=== PATIENT | female | born 1970 | race Caucasian/White ===

== ENCOUNTER 2018-01-01 18:31 | Inpatient (IN) | payer OTHER, MEDICAID, SELFPAY ==
[2018-01-01 18:52] VITALS: BP 110/80; PULSE 80; RESP 16; TEMP 36.8; O2SAT 100; BMI 26.1
--- NOTE | 2018-01-01 20:00 | ED.ABDPAIN ---
HPI - Abdominal Pain <YADY Schuler - Last Filed: 01/01/18 22:16> General Chief Complaint: Abdominal Pain Stated Complaint: states diverticulitis is getting worse Time Seen by Provider: 01/01/18 20:00 Source: patient Mode of arrival: ambulatory Limitations: no limitations History of Present Illness HPI narrative: 47-year-old female that has a history of hypothyroidism and is an everyday smoker here for complaint of abdominal pain over the past week. She was seen in the [facility] and [facility] where she was diagnosed with diverticulitis. She reports she has had constant pain for the past 5- 6 days she states she has 1 day left of antibiotics she actually reports today she had increased nausea and discomfort. She denies any fevers or chills. Last bowel movement was earlier today and was diarrhea. She denies any urinary symptoms. No trauma to the abdomen. Pain is to the left side of the abdomen. She denies any stressors or relievers of her pain. She denies any other concerns or complaints. She does state that she has been taking her antibiotics as prescribed. She was prescribed ciprofloxacin and Flagyl complaint: abdominal pain Related Data Home Medications Medication Instructions Recorded Confirmed buspirone 2 tab PO BID 01/01/18 01/01/18 cariprazine [Vraylar] 1 tab PO QPM 01/01/18 01/01/18 ciprofloxacin HCl 1 tab PO BID 01/01/18 01/01/18 levothyroxine 1 tab PO DAILY 01/01/18 01/01/18 lorazepam 1 tab PO BID PRN 01/01/18 01/01/18 metronidazole 1 tab PO TID 01/01/18 01/01/18 Allergies Allergy/AdvReac Type Severity Reaction Status Date / Time lamotrigine [From LAMICTAL] Allergy Unknown Verified 01/01/18 20:28 Review of Systems <YADY Schuler - Last Filed: 01/01/18 22:16> Constitutional Denies chills, Denies fever(s), Denies lethargy and Denies weakness Eyes Denies change in vision, Denies eye discharge, Denies irritation and Denies loss of vision ENT Ears, Nose, Mouth, and Throat: Denies change in voice, Denies neck pain and Denies sore throat Cardiovascular Denies chest pain, Denies irregular heart rhythm, Denies lightheadedness, Denies palpitations, Denies dyspnea, Denies dyspnea on exertion and Denies orthopnea Respiratory Denies cough, Denies dyspnea, Denies dyspnea on exertion and Denies wheezing Gastrointestinal Comments: abdominal pain Genitourinary Denies hematuria, Denies flank pain, Denies urinary incontinence and Denies urinary urgency Musculoskeletal Denies neck pain Integumentary/Breasts Denies pruritus, Denies erythema, Denies rash and Denies wounds Neurologic Denies confusion, Denies loss of vision and Denies weakness Psychiatric Denies anxiety, Denies confusion, Denies depression, Denies homicidal ideation and Denies suicidal ideation Endocrine Denies palpitations Hematologic/Lymphatic Denies easy bruising Allergic/Immunologic Denies wheezing Exam <YADY Schuler - Last Filed: 01/01/18 22:16> Initial Vital Signs Initial Vital Signs: Vital Signs Temperature 98.3 F 01/01/18 18:52 Pulse Rate 80 01/01/18 18:52 Respiratory Rate 16 01/01/18 18:52 Blood Pressure 110/80 01/01/18 18:52 Pulse Oximetry 100 01/01/18 18:52 Const General: cooperative and well developed Nutritional Appearance: well nourished Orientation: alert, awake, oriented x3 and not confused HENIA Mouth: oral mucosae normal and moist mucous membranes Eyes Conjunctivae: conjunctivae normal Sclera: sclerae normal Pupils: PERRL EOM: EOM intact bilaterally Resp Effort & Inspection: normal respiratory effort, able to speak in complete sentences, no respiratory distress and no use of accessory muscles Auscultation: clear to auscultation bilaterally, no rales, no rhonchi and no wheezes Cardio Rate: regular rate Rhythm: regular rhythm Heart Sounds: no click, no gallops, no murmurs and no rubs Pulses: normal peripheral pulses GI Inspection: non-distended Palpation: soft, no hepatosplenomegaly, No guarding, No pulsatile mass and tender Auscultation: normal bowel sounds Other: left-sided upper abdominal pain General: No CVA tenderness Neuro General: alert, oriented x3, gait normal and no focal motor deficits Speech: speech normal <James Gutierrez DO - Last Filed: 01/01/18 23:26> Initial Vital Signs Initial Vital Signs: Vital Signs Temperature 98.3 F 01/01/18 18:52 Pulse Rate 80 01/01/18 18:52 Respiratory Rate 16 01/01/18 18:52 Blood Pressure 110/80 01/01/18 18:52 Pulse Oximetry 100 01/01/18 18:52 Course <YADY Schuler - Last Filed: 01/01/18 22:16> Orders Ordered: ED Orders 01/01/18 20:10 Complete Blood Count AUTO DIFF Stat Comprehensive Metabolic Panel Stat Lipase Stat 01/01/18 20:22 CT abdomen pelvis w con Stat 01/01/18 20:30 Urine Culture Stat Urine Microscopic Stat 01/01/18 22:02 Consult to General Surgery Routine Buspirone HCl (Buspar) 15 mg PO BID PRAMOD Hydromorphone HCl (Dilaudid) 2 mg IV Q4HR PRN PRN Reason: Pain, Moderate (4-6) Sodium Chloride (Normal Saline 0.9%) 1,000 mls @ 125 mls/hr IV CONT PRAMOD Piperacillin/Tazobactam/Dextrose (Zosyn) 3.375 gm in 50 mls @ 100 mls/hr IV Q6H PRAMOD Levothyroxine Sodium (Synthroid) 75 mcg PO 0600 PRAMOD Ondansetron HCl (Zofran) 4 mg IV Q4HR PRN PRN Reason: Nausea And Vomiting Discontinued Medications Hydromorphone HCl (Dilaudid) 1 mg IV NOW ONE Stop: 01/01/18 20:21 Last Admin: 01/01/18 20:29 Dose: 1 mg Sodium Chloride (Normal Saline 0.9%) 1,000 mls @ 1,000 mls/hr IV BOLUS ONE Stop: 01/01/18 21:19 Last Infusion: 01/01/18 21:36 Dose: 0 mls/hr Admin: 01/01/18 20:29 Dose: 1,000 mls/hr Piperacillin/Tazobactam/Dextrose (Zosyn) 3.375 gm in 50 mls @ 100 mls/hr IV Q6H PRAMOD Ondansetron HCl (Zofran) 4 mg IV NOW ONE Stop: 01/01/18 20:21 Last Admin: 01/01/18 20:29 Dose: 4 mg Vital Signs - 8 hr 01/01/18 18:52 01/01/18 20:38 01/01/18 22:08 Temperature 98.3 F Pulse Rate 80 77 80 Respiratory Rate 16 14 13 Blood Pressure 110/80 Blood Pressure [Right Arm] 136/79 124/79 Pulse Oximetry 100 98 98 01/01/18 22:48 Temperature 98.1 F Pulse Rate 85 Respiratory Rate 16 Blood Pressure 133/71 Blood Pressure [Right Arm] Pulse Oximetry 98 <James Gutierrez, DO - Last Filed: 01/01/18 23:26> Orders Ordered: ED Orders 01/01/18 20:10 Complete Blood Count AUTO DIFF Stat Comprehensive Metabolic Panel Stat Lipase Stat 01/01/18 20:22 CT abdomen pelvis w con Stat 01/01/18 20:30 Urine Culture Stat Urine Microscopic Stat 01/01/18 22:02 Consult to General Surgery Routine Buspirone HCl (Buspar) 15 mg PO BID PRAMOD Hydromorphone HCl (Dilaudid) 2 mg IV Q4HR PRN PRN Reason: Pain, Moderate (4-6) Sodium Chloride (Normal Saline 0.9%) 1,000 mls @ 125 mls/hr IV CONT PRAMOD Piperacillin/Tazobactam/Dextrose (Zosyn) 3.375 gm in 50 mls @ 100 mls/hr IV Q6H PRAMOD Levothyroxine Sodium (Synthroid) 75 mcg PO 0600 PRAMOD Ondansetron HCl (Zofran) 4 mg IV Q4HR PRN PRN Reason: Nausea And Vomiting Discontinued Medications Hydromorphone HCl (Dilaudid) 1 mg IV NOW ONE Stop: 01/01/18 20:21 Last Admin: 01/01/18 20:29 Dose: 1 mg Sodium Chloride (Normal Saline 0.9%) 1,000 mls @ 1,000 mls/hr IV BOLUS ONE Stop: 01/01/18 21:19 Last Infusion: 01/01/18 21:36 Dose: 0 mls/hr Admin: 01/01/18 20:29 Dose: 1,000 mls/hr Piperacillin/Tazobactam/Dextrose (Zosyn) 3.375 gm in 50 mls @ 100 mls/hr IV Q6H PRAMOD Ondansetron HCl (Zofran) 4 mg IV NOW ONE Stop: 01/01/18 20:21 Last Admin: 01/01/18 20:29 Dose: 4 mg Vital Signs - 8 hr 01/01/18 18:52 01/01/18 20:38 01/01/18 22:08 Temperature 98.3 F Pulse Rate 80 77 80 Respiratory Rate 16 14 13 Blood Pressure 110/80 Blood Pressure [Right Arm] 136/79 124/79 Pulse Oximetry 100 98 98 01/01/18 22:48 Temperature 98.1 F Pulse Rate 85 Respiratory Rate 16 Blood Pressure 133/71 Blood Pressure [Right Arm] Pulse Oximetry 98 MDM - Abdominal Pain <YADY Schuler - Last Filed: 01/01/18 22:16> Lab Data Result diagrams: 01/01/18 20:10 01/01/18 20:10 Lab Results 01/01/18 01/01/18 01/01/18 Range/Units 20:10 20:10 20:30 WBC 8.7 (4.5-11.0) X10^3/uL RBC 4.85 (4.0-5.2) X10^6/uL Hgb 15.6 (12.0-16.0) g/dL Hct 46.0 (36-46) % MCV 94.8 (80-100) fL MCH 32.2 (26-34) PG MCHC 34.0 (30-36) % RDW 13.9 (11.6-14.8) % Plt Count 211 (150-400) X10^3/uL Neut % (Auto) 60.4 (50-75) % Lymph % (Auto) 30.9 (25-40) % [place] % (Auto) 6.4 (3-14) % Eos % (Auto) 1.5 L (2-4) % Baso % (Auto) 0.8 (0-2) % Neut # (Auto) 5200 (8755-7021) /uL Sodium 143 (137-145) mmol/L Potassium 4.4 (3.4-5.1) mmol/L Chloride 105 (98-107) mmol/L Carbon Dioxide 26 (22-32) mmol/L BUN 8 (7-17) mg/dL Creatinine 0.70 (0.52-1.04) mg/dL Estimated GFR > 60.0 (>60) mL/min BUN/Creatinine Ratio 11.4 (6-22) Glucose 93 (70-100) mg/dL Calcium 9.3 (8.4-10.2) mg/dL Total Bilirubin 0.4 (0.2-1.3) mg/dL AST 29 (14-36) IU/L ALT 29 (9-52) IU/L Alkaline Phosphatase 69 (38-126) U/L Total Protein 7.5 (6.3-8.2) g/dL Albumin 4.6 (3.5-5.0) g/dL Globulin 2.9 (1.7-4.1) g/dL Albumin/Globulin Ratio 1.6 (1.0-2.8) Lipase 117 (23-300) U/L Urine RBC 1-5/hpf (0-5/HPF) Urine WBC 0-1/hpf (0-5/HPF) Ur Squamous Epith Cells 1-5 /hpf Calcium Oxalate Crystal Moderate H (None) Urine Bacteria Few (2-10) H (None) Ur Culture Indicated? Specimen cultured Micro UA Comment Not Reportable Point of care testing: Urine Dip Bedside Urine Glucose Negative Bedside Urine Bilirubin - Negative Bedside Urine Ketone - Negative Urine Specific [place] 1.030 Bedside Urine Occult Blood - Negative Bedside Urine pH 6.0 Bedside Urine Protein - Negative Bedside Urine Urobilinogen - Negative Bedside Urine Nitrite - Negative Bedside Urine Leukocytes + [address] scan - abdomen: Radiologist's impression: [place] [address] CT Scan Report Signed Patient: Jocelyn Riggins [facility]#: [id number] : 1970Acct:[id number] Age/Sex: 47 / FDate of Service: 01/01/18 Loc: ED Accession Number: [id number] Procedure: CT abdomen pelvis w con Ordering Provider: Alexis Ríos PROCEDURE: CT ABDOMEN PELVIS W CON INDICATIONS: pain into left abdominal area TECHNIQUE: After the administration of intravenous contrast, 5 mm thick sections acquired from the diaphragm to the symphysis. 5 mm coronal and sagittal reformats were acquired. For radiation dose reduction, the following was used: automated exposure control, adjustment of mA and/or kV according to patient size. COMPARISON: None. FINDINGS: Image quality: Excellent. ABDOMEN: Lung bases: Lung bases are clear. Heart size is normal. Solid organs: Liver is normal in size and enhancement. Gallbladder appears normal. Biliary system is non dilated. Pancreas enhances normally. Spleen is normal in size and enhancement. No adrenal nodules. Kidneys demonstrate normal size and enhancement, without hydronephrosis. Peritoneum and bowel: Bowel loops demonstrate normal wall thickness and caliber. No free fluid or air. Nodes and vessels: No retroperitoneal or mesenteric adenopathy by size criteria. Aorta and inferior vena cava are normal in size. Miscellaneous: No ventral hernias. PELVIS: Genitourinary: Bladder wall thickness is normal. Miscellaneous: No inguinal hernias or adenopathy. Extensive diverticulosis at the sigmoid colon, mild focal acute diverticulitis at the inferior aspect of the descending colon (without peridiverticular abscess). Bones: No suspicious bony lesions. No vertebral body compression fractures. IMPRESSION: Diverticulosis of the sigmoid colon with acute diverticulitis at the inferior margin of the descending colon. No peridiverticular abscess. Dictated by: Manuel Chavira M.D. on 01/01/2018 at 21:33 Approved by: Manuel Chavira M.D. on 01/01/2018 at 21:34 [facility] Narrative Medical decision making narrative: CBC and Chem panel were obtained were unremarkable. lipase was negative. Repeat CT was obtained and shows mild sigmoid diverticulitis. Due to feeling outpatient treatment patient is admitted for IV antibiotics And pain control, discussed case with Dr. Sneed surgery who accepted patient. Patient is admitted to inpatient [facility]. <James Gutierrez, DO - Last Filed: 01/01/18 23:26> Lab Data Lab Results 01/01/18 01/01/18 01/01/18 Range/Units 20:10 20:10 20:30 WBC 8.7 (4.5-11.0) X10^3/uL RBC 4.85 (4.0-5.2) X10^6/uL Hgb 15.6 (12.0-16.0) g/dL Hct 46.0 (36-46) % MCV 94.8 (80-100) fL MCH 32.2 (26-34) PG MCHC 34.0 (30-36) % RDW 13.9 (11.6-14.8) % Plt Count 211 (150-400) X10^3/uL Neut % (Auto) 60.4 (50-75) % Lymph % (Auto) 30.9 (25-40) % [place] % (Auto) 6.4 (3-14) % Eos % (Auto) 1.5 L (2-4) % Baso % (Auto) 0.8 (0-2) % Neut # (Auto) 5200 (5264-8502) /uL Sodium 143 (137-145) mmol/L Potassium 4.4 (3.4-5.1) mmol/L Chloride 105 (98-107) mmol/L Carbon Dioxide 26 (22-32) mmol/L BUN 8 (7-17) mg/dL Creatinine 0.70 (0.52-1.04) mg/dL Estimated GFR > 60.0 (>60) mL/min BUN/Creatinine Ratio 11.4 (6-22) Glucose 93 (70-100) mg/dL Calcium 9.3 (8.4-10.2) mg/dL Total Bilirubin 0.4 (0.2-1.3) mg/dL AST 29 (14-36) IU/L ALT 29 (9-52) IU/L Alkaline Phosphatase 69 (38-126) U/L Total Protein 7.5 (6.3-8.2) g/dL Albumin 4.6 (3.5-5.0) g/dL Globulin 2.9 (1.7-4.1) g/dL Albumin/Globulin Ratio 1.6 (1.0-2.8) Lipase 117 (23-300) U/L Urine RBC 1-5/hpf (0-5/HPF) Urine WBC 0-1/hpf (0-5/HPF) Ur Squamous Epith Cells 1-5 /hpf Calcium Oxalate Crystal Moderate H (None) Urine Bacteria Few (2-10) H (None) Ur Culture Indicated? Specimen cultured Micro UA Comment Not Reportable Point of care testing: Urine Dip Bedside Urine Glucose Negative Bedside Urine Bilirubin - Negative Bedside Urine Ketone - Negative Urine Specific [place] 1.030 Bedside Urine Occult Blood - Negative Bedside Urine pH 6.0 Bedside Urine Protein - Negative Bedside Urine Urobilinogen - Negative Bedside Urine Nitrite - Negative Bedside Urine Leukocytes + 70 Esterase Discharge Plan Departure Patient Disposition: Admitted As Inpatient Clinical Impression: Diverticulitis Discharge Date/Time: 01/01/18 22:36 Interventions: ED Discharge Assessment Last Done: 01/01/18 22:38 Admit Date/Time: 01/01/18 22:15 Admit Provider: Gama Sneed <James Gutierrez DO - Last Filed: 01/01/18 23:26> Cosign ED Attending Cosignature Attestation: I was immediately available in the department for consultation. Documentation has been reviewed. I agree with assessment and plan.
--- NOTE | 2018-01-01 20:22 | DI.CT.S_ITS ---
PROCEDURE: CT ABDOMEN PELVIS W CON INDICATIONS: pain into left abdominal area TECHNIQUE: After the administration of intravenous contrast, 5 mm thick sections acquired from the diaphragm to the symphysis. 5 mm coronal and sagittal reformats were acquired. For radiation dose reduction, the following was used: automated exposure control, adjustment of mA and/or kV according to patient size. COMPARISON: None. FINDINGS: Image quality: Excellent. ABDOMEN: Lung bases: Lung bases are clear. Heart size is normal. Solid organs: Liver is normal in size and enhancement. Gallbladder appears normal. Biliary system is non dilated. Pancreas enhances normally. Spleen is normal in size and enhancement. No adrenal nodules. Kidneys demonstrate normal size and enhancement, without hydronephrosis. Peritoneum and bowel: Bowel loops demonstrate normal wall thickness and caliber. No free fluid or air. Nodes and vessels: No retroperitoneal or mesenteric adenopathy by size criteria. Aorta and inferior vena cava are normal in size. Miscellaneous: No ventral hernias. PELVIS: Genitourinary: Bladder wall thickness is normal. Miscellaneous: No inguinal hernias or adenopathy. Extensive diverticulosis at the sigmoid colon, mild focal acute diverticulitis at the inferior aspect of the descending colon (without peridiverticular abscess). Bones: No suspicious bony lesions. No vertebral body compression fractures. IMPRESSION: Diverticulosis of the sigmoid colon with acute diverticulitis at the inferior margin of the descending colon. No peridiverticular abscess. Dictated by: Manuel Chavira M.D. on 01/01/2018 at 21:33 Approved by: Manuel Chavira M.D. on 01/01/2018 at 21:34
[2018-01-01] MEDS: SODIUM CHLORIDE 0.9% 1,000 ML 1000 ML IV (20:29)
[2018-01-01] MEDS: ONDANSETRON 4 MG/2 ML INJ IV (20:29)
[2018-01-01] MEDS: HYDROMORPHONE 1 MG INJ IV (20:29)
[2018-01-01 20:32] LABS: Add Manual Diff / Slide Review NO; Basophils Percent Auto 0.8 % (0-2); Eosinophils Percent Auto 1.5 % (2-4); Hemoglobin 15.6 g/dL (12.0-16.0); Lymphocytes Percent Auto 30.9 % (25-40); Mean Corpuscular Hemoglobin 32.2 PG (26-34); Mean Corpuscular Volume 94.8 fL (80-100); Monocytes Percent Auto 6.4 % (3-14); Neutrophils Absolute Auto 5200 /uL (3000-5900); Neutrophils Percent Auto 60.4 % (50-75); Platelet Count 211 X10^3/uL (150-400); Red Blood Cell Count 4.85 X10^6/uL (4.0-5.2); Red Cell Distribution Width 13.9 % (11.6-14.8); White Blood Cell Count 8.7 X10^3/uL (4.5-11.0)
[2018-01-01 20:38] VITALS: BP 136/79; PULSE 77; RESP 14; O2SAT 98
[2018-01-01 20:53] LABS: Alanine Aminotransferase 29 IU/L (9-52); Albumin 4.6 g/dL (3.5-5.0); Albumin Globulin Ratio 1.6 (1.0-2.8); Alkaline Phosphatase 69 U/L (38-126); Aspartate Aminotransferase 29 IU/L (14-36); BUN Creatinine Ratio 11.4 (6-22); Bilirubin Total 0.4 mg/dL (0.2-1.3); Blood Urea Nitrogen 8 mg/dL (7-17); Calcium 9.3 mg/dL (8.4-10.2); Carbon Dioxide 26 mmol/L (22-32); Chloride 105 mmol/L (98-107); Estimated Glomerular Filt Rate > 60.0 mL/min (>60); Globulin 2.9 g/dL (1.7-4.1); Glucose 93 mg/dL (70-100); HEMOLYSIS 31 (0-50); Lipase 117 U/L (23-300); Potassium 4.4 mmol/L (3.4-5.1); Sodium 143 mmol/L (137-145); Total Protein 7.5 g/dL (6.3-8.2)
[2018-01-01 21:20] LABS: Bacteria Urine Few (2-10); Calcium Oxalate Crystals Urine Moderate; RBC Urine 1-5/HPF (0-5/HPF); Squamous Epithelial Cell Urine 1-5 /HPF; WBC Urine 0-1/HPF (0-5/HPF)
[2018-01-01 21:21] LABS: Culture Indicated Urine Specimen Cultured
[2018-01-01 22:08] VITALS: BP 124/79; PULSE 80; RESP 13; O2SAT 98
[2018-01-01 22:23] VITALS: BMI 26.1
[2018-01-01 22:48] VITALS: BP 133/71; PULSE 85; RESP 16; TEMP 36.7; O2SAT 98
[2018-01-01] MEDS: SODIUM CHLORIDE 0.9% 1,000 ML 125 ML IV (23:13)
[2018-01-01] MEDS: PIPERACILLIN-TAZO 3.375 GM/50 ML FROZ.PIGGY IV (23:13)
--- NOTE | 2018-01-01 23:35 | PC.NURSE ---
admit pt admitted to from ER around 2300. VSS. states abdominal pain since mid december with recent hospitalization being DCd on the . currently rating abdominal discomfort 7/10 to central and left abdomen. states had Ivania repair in 04/25 so shouldn't be vomiting or burping but has been doing both today. diarrhea x3 day. denies blood in emesis or stool. water provided. NS infusing per order with zosyn piggyback started. pt encouraged to use call light for needs and prior to activity for assist with equipment. spouse Jez in room for the night. pt oriented to room and plan of care. denies any questions.
[2018-01-01 23:45] VITALS: O2SAT 98
[2018-01-02] VITALS (7 sets, daily range): BP systolic 100–119; BP diastolic 59–81; PULSE 53–96; RESP 16–20; TEMP 36.3–37.1; O2SAT 96–99
[2018-01-02] MEDS: HYDROMORPHONE 2 MG INJ IV ×4 (00:04→17:35)
[2018-01-02] MEDS: ONDANSETRON 4 MG/2 ML INJ IV ×4 (00:06→16:34)
[2018-01-02] MEDS: NICOTINE 21 MG PATCH TOP (00:20)
[2018-01-02] MEDS: PIPERACILLIN-TAZO 3.375 GM/50 ML FROZ.PIGGY IV ×4 (04:15→20:48)
--- NOTE | 2018-01-02 06:47 | PC.NURSE ---
NOC Shift: Pt admitted tonight for lower ABD pain re: diverticulitis. Rates pain 7/10, BT's audible, abd. soft, tender. Controlled with Dilaudid 2mg Q4H, given w/Zofran for nausea control. IVF's 125mls/hr. Ambulates w/standby assist w/o difficulty. VSS, on tele NSR. sleeping overnight, will have surgical consult this AM. IV ABX started.
[2018-01-02] MEDS: SODIUM CHLORIDE 0.9% 1,000 ML 125 ML IV (07:59)
--- NOTE | 2018-01-02 09:01 | CM.DANOTE ---
DCP: Case received, EMR reviewed and met with patient. Introduced self and role. DCP template completed with information currently available. Patient is a 47 year old female who admitted yesterday evening to the care of the hospitalist team. PCP: Dr. Atkins. Payer: confirmed: [employer]. Patient came into hospital with symptoms of abdominal pain. Patient carries a diagnosis of Diverticulitis. Patient stated that her condition has gotten worse. Patient is alert and oriented, pleasant, at bedside. Resides with in [facility]. P: DCP to continue to follow. Plan is to return home when she is stable. Laury Forbes RN/Hard Hat [employer]
[2018-01-02] MEDS: BUSPIRONE 15 MG TABLET PO ×2 (09:05→20:47)
[2018-01-02] MEDS: LEVOTHYROXINE 75 MCG TABLET PO (09:05)
--- NOTE | 2018-01-02 14:31 | HP_ITS ---
DATE OF SERVICE: 01/01/2018 HISTORY OF PRESENT ILLNESS: A 47-year-old white female patient who was recently hospitalized somewhere in [facility]; she was in the hospital 3 days with acute diverticulitis, treated with Cipro and Flagyl and discharged on oral Cipro and Flagyl. She came into the emergency room because her abdominal pain was increasing and she has more discomfort. No nausea, vomiting. Denies fevers or chills. She had a bowel movement and it was loose on 01/01/2018. Comes to the emergency room with a normal white count, has a CT scan of the abdomen and pelvis revealing acute sigmoid diverticulitis. No free air. No perforation. No abscesses. She is admitted for ongoing intravenous antibiotic therapy and a change in antibiotic therapy. PAST MEDICAL HISTORY: She does have a history of having a Ivania fundoplication last spring, and also has a history of diverticulitis, she says, on the right side of her colon, and a duodenal diverticulum is known as well. She has had a history of C. diff enterocolitis. ALLERGIES: LAMOTRIGENE. MEDICATIONS: She currently uses buspirone. She is on Cipro and Flagyl and she is on thyroid replacement therapy. She also takes lorazepam b.i.d. p.r.n. REVIEW OF SYSTEMS: Denies exertional chest pain or unusual shortness of breath. GI is as mentioned in the HPI. She also history of gastroesophageal reflux. She states that she has improvement in her reflux after having a Ivania fundoplication. She is still able to burp and vomit, however. The negative for incontinence, history of infections. NEUROLOGIC: denies stroke, seizures, or TIAs. ENDOCRINE: She does have hypothyroidism. PHYSICAL EXAMINATION VITAL SIGNS: She's afebrile, 98; blood pressure 110/80; heart rate in the 80s, HEENT: Ears, nose, throat are normal. NECK: No adenopathy. CHEST: Lungs are clear with no rales or wheezes. HEART: Regular rhythm. No murmur. ABDOMEN: Soft, nondistended. Actually she only has, this morning, minimal left lower quadrant tenderness. No masses are palpated. IMPRESSION: Acute diverticulitis, unresolved on oral antibiotic therapy. She will continue IV antibiotic therapy using a different drug, Zosyn, on this occasion and with her history of C. diff and having a loose stool yesterday, I will order a stool for C. diff to check her baseline. Jocelyn Riggins - Lg/ doc#: [id number]/job#: [id number] dd: 01/02/2018 08:50:00 dt: 01/02/2018 14:10:00 DICTATING /COPIES TO: Gama Sneed MD COPIES MNE: MOUNIKA
[2018-01-02] MEDS: CARIPRAZINE 3 MG 3 EACH PO (20:47)
[2018-01-03] VITALS (7 sets, daily range): BP systolic 105–119; BP diastolic 63–77; PULSE 59–84; RESP 16–19; TEMP 36.6–36.8; O2SAT 94–99
[2018-01-03] MEDS: HYDROMORPHONE 2 MG INJ IV ×2 (00:54→08:05)
[2018-01-03] MEDS: ONDANSETRON 4 MG/2 ML INJ IV ×4 (00:58→17:37)
[2018-01-03] MEDS: PIPERACILLIN-TAZO 3.375 GM/50 ML FROZ.PIGGY IV ×4 (04:01→21:25)
[2018-01-03] MEDS: SODIUM CHLORIDE 0.9% 1,000 ML 50 ML IV (04:03)
[2018-01-03] MEDS: LEVOTHYROXINE 75 MCG TABLET PO (05:29)
[2018-01-03] MEDS: BUSPIRONE 15 MG TABLET PO ×2 (07:53→21:30)
[2018-01-03] MEDS: NICOTINE 21 MG PATCH TOP (08:00)
[2018-01-03] MEDS: LORazepam 2 MG/ML SYRINGE 0.5 MG IV (10:43)
--- NOTE | 2018-01-03 10:54 | PC.NURSE ---
Addendum entered by Naya Do R.N. 01/03/18 12:49: 1245-Pt continues with some visable anxiety. Using Iv dilaudid for pain control Original Note: Addendum entered by Naya Do R.N. 01/03/18 10:56: Add 1025-Call into [facility] Re: continued anxiety, orders rec'd. Original Note: Am shift Pt is A/o x3 start of shift. C/o pain, medicated per emar Anxious appearing at times, wringing hands. Asking questions about potential complications, Will I have surgery today? Am I getting a colostomy? when will I know? Reassured Pt and reviewed POC. Spouse at bedside. Tolerating meals fine, eager to advance diet.
--- NOTE | 2018-01-03 13:53 | PM.PN.1 ---
Subjective Date Patient Seen: 01/03/18 Time Patient Seen: 13:53 Interval history: Feeling a little better today......a little less nauseated. Pain is a bit improved as well. Hungry now. Passing flatus but no bowel movement. Denies chills or subjective fever today. Exam Vital Signs (past 8 hours): - 01/03/18 07:40 01/03/18 12:28 Temperature 98.1 F 98.2 F Pulse Rate 83 84 Respiratory Rate 16 16 Blood Pressure 108/66 119/77 Pulse Oximetry 95 97 Oxygen Delivery Method Room Air Oxygen Flow Rate 0 Narrative Exam Narrative: Lungs: Clear bilaterally CV: RRR without murmur Abd: soft, tender to palpation in the left lower quadrant. Patient says tenderness is improved since admission. Mild voluntary guarding. No rebound tenderness. Ext: no edema Objective Labs Result Diagrams: 01/01/18 20:10 01/01/18 20:10 Assessment & Plan Plan: Assessment/Plan Narrative: Pleasant lady with recurrent acute diverticulitis and a history of c.diff colitis after treatment for right sided diverticulitis. 1. Hep lock IV 2. Resume all home meds 3. Advance to soft mechanical diet 4. Add Flagyl 5. Recheck labs in the AM. Quality VTE Deep Vein Thrombosis/Pulmonary Embolism Present on Admission: No
[2018-01-03] MEDS: OXYCODONE 5 MG/5 ML ORAL SOLUTION PO (14:51)
[2018-01-03] MEDS: LORazepam 1 MG TABLET PO (17:36)
[2018-01-03] MEDS: metroNIDAZOLE 500 MG/100 ML PIGGYBACK 100 MG IV ×2 (17:38→22:18)
[2018-01-03] MEDS: CARIPRAZINE 3 MG 3 EACH PO (21:30)
--- NOTE | 2018-01-03 21:35 | PC.NURSE ---
Addendum entered by Ania Chatman R.N. 01/04/18 22:29: Pt IV infiltrated, notified, Pt refuse restart. Levoquin po ordered to start in am. HL discontinued by SN and instructor. Original Note: Addendum entered by Ania Chatman R.N. 01/04/18 21:48: Pt resting throughout evening. Med this evening w/ oxycodone w/fair relief. IV now HL, tele discontinued. Condition remains essentially unchabnged Call light w/in reach. Continue w/ plan of care. Original Note: Addendum entered by Ania Chatman R.N. 01/04/18 18:37: New orders to HL IVF, D/C tele, and change oxycodone to q 3hr. Will assess. Original Note: Pt up ad aishwarya in room. States she is having loose stools. Bowel tones hyperactive Tele shows NSR IV infusing per pump as per orders w/o incidence. Call light w/in reach. Continue w/plan of care.
[2018-01-04] MEDS: metroNIDAZOLE 500 MG/100 ML PIGGYBACK 100 MG IV ×3 (01:46→15:29)
[2018-01-04] MEDS: PIPERACILLIN-TAZO 3.375 GM/50 ML FROZ.PIGGY IV ×3 (03:57→16:59)
[2018-01-04 05:17] VITALS: BP 112/71; PULSE 68; RESP 16; TEMP 36.6; O2SAT 94
[2018-01-04] MEDS: SODIUM CHLORIDE 0.9% 1,000 ML 50 ML IV (05:33)
[2018-01-04] MEDS: LEVOTHYROXINE 75 MCG TABLET PO (05:33)
[2018-01-04 06:29] LABS: Add Manual Diff / Slide Review NO; Basophils Percent Auto 1.4 % (0-2); Eosinophils Percent Auto 2.2 % (2-4); Hemoglobin 13.2 g/dL (12.0-16.0); Lymphocytes Percent Auto 24.3 % (25-40); Mean Corpuscular HGB Conc 33.7 % (30-36); Mean Corpuscular Hemoglobin 31.9 PG (26-34); Mean Corpuscular Volume 94.7 fL (80-100); Monocytes Percent Auto 5.5 % (3-14); Neutrophils Absolute Auto 3600 /uL (3000-5900); Neutrophils Percent Auto 66.6 % (50-75); Platelet Count 151 X10^3/uL (150-400); Red Blood Cell Count 4.12 X10^6/uL (4.0-5.2); Red Cell Distribution Width 13.4 % (11.6-14.8); White Blood Cell Count 5.5 X10^3/uL (4.5-11.0)
[2018-01-04 06:36] LABS: Blood Urea Nitrogen 7 mg/dL (7-17); Calcium 8.2 mg/dL (8.4-10.2); Carbon Dioxide 25 mmol/L (22-32); Chloride 106 mmol/L (98-107); Estimated Glomerular Filt Rate > 60.0 mL/min (>60); Glucose 89 mg/dL (70-100); HEMOLYSIS < 15 (0-50); Sodium 139 mmol/L (137-145)
[2018-01-04 07:45] VITALS: BP 123/85; PULSE 81; RESP 18; TEMP 36.6; O2SAT 97
[2018-01-04] MEDS: ONDANSETRON 4 MG/2 ML INJ IV (08:41)
[2018-01-04] MEDS: BUSPIRONE 15 MG TABLET PO ×2 (08:45→20:14)
[2018-01-04] MEDS: NICOTINE 21 MG PATCH TOP (08:45)
[2018-01-04] MEDS: LORazepam 1 MG TABLET PO (11:12)
[2018-01-04] MEDS: OXYCODONE 5 MG/5 ML ORAL SOLUTION PO ×3 (11:22→20:19)
[2018-01-04 11:31] VITALS: BP 107/75; PULSE 77; RESP 18; TEMP 36.4; O2SAT 97
[2018-01-04 16:48] VITALS: BP 113/77; PULSE 71; RESP 16; TEMP 36.6; O2SAT 96
[2018-01-04 17:02] VITALS: O2SAT 96
--- NOTE | 2018-01-04 18:54 | P.PN_ITS ---
Subjective Date Patient Seen: 01/04/18 Time Patient Seen: 08:51 Interval history: Jocelyn continues to have difficulty with her recovery. She says she has had terrible nausea today. She did ask for nausea medicine in the form of Zofran and was able to eat. She reports that she is having diarrhea and this diarrhea is ?very painful?. She rates her pain from diarrhea as a 6 on a scale of 1-10. She says that the oxycodone is not dealing with that pain very well. Exam Vital Signs (past 8 hours): - 01/04/18 11:31 01/04/18 16:48 01/04/18 17:02 Temperature 97.5 F L 97.8 F Pulse Rate 77 71 Respiratory Rate 18 16 Blood Pressure 107/75 113/77 Pulse Oximetry 97 96 96 Oxygen Delivery Method Room Air Oxygen Flow Rate 0 Narrative Exam Narrative: Abdomen is much softer than the time of admission. Minimal tenderness to palpation. Active bowel sounds. Objective Labs Result Diagrams: 01/04/18 06:09 01/04/18 06:09 Labs: Laboratory Results - last 24 hr 01/04/18 01/04/18 06:09 06:09 WBC 5.5 RBC 4.12 Hgb 13.2 Hct 39.0 MCV 94.7 MCH 31.9 MCHC 33.7 RDW 13.4 Plt Count 151 Neut % (Auto) 66.6 Lymph % (Auto) 24.3 L [place] % (Auto) 5.5 Eos % (Auto) 2.2 Baso % (Auto) 1.4 Neut # (Auto) 3600 Sodium 139 Potassium 4.0 Chloride 106 Carbon Dioxide 25 BUN 7 Creatinine 0.70 Estimated GFR > 60.0 BUN/Creatinine Ratio 10.0 Glucose 89 Calcium 8.2 L Assessment & Plan Plan: Assessment/Plan Narrative: Nausea continues to be an issue. I will recheck her stool for C diff. If it is negative perhaps will try to proceed with Augmentin only. If the stool is positive, we will need to change to oral vancomycin. We must get the nausea under control so that she can go home in a reasonable state of health. I will continue the IV Zosyn until we get results of the C diff back. Continue to encourage ambulation. Quality VTE Deep Vein Thrombosis/Pulmonary Embolism Present on Admission: No
[2018-01-04 19:50] VITALS: BP 115/79; PULSE 86; RESP 16; TEMP 36.8; O2SAT 97
[2018-01-04] MEDS: CARIPRAZINE 3 MG 3 EACH PO (20:14)
--- NOTE | 2018-01-04 22:37 | PC.NURSE ---
Patient's IV infiltrated. IV site is red and has a slight bump but is not inflamed. IV has been discontinued and physician will change antibiotic order from IV to PO. Patient will discharge tomorrow.
[2018-01-05 00:40] VITALS: BP 107/66; PULSE 67; RESP 18; TEMP 36.5; O2SAT 95
[2018-01-05 03:45] VITALS: BP 109/69; PULSE 66; RESP 18; TEMP 36.5; O2SAT 96
[2018-01-05 08:00] VITALS: BP 126/76; PULSE 86; RESP 16; TEMP 36.6; O2SAT 98
[2018-01-05] MEDS: NICOTINE 21 MG PATCH TOP (09:09)
[2018-01-05] MEDS: LEVOTHYROXINE 75 MCG TABLET PO (09:09)
[2018-01-05] MEDS: levoFLOXacin 250 MG TABLET 750 MG PO (09:09)
[2018-01-05 09:16] LABS: Clostridium Difficile Tox PCR Negative for C. diff
[2018-01-05] MEDS: BUSPIRONE 15 MG TABLET PO (10:19)
--- NOTE | 2018-01-05 10:52 | PM.DS.1 ---
History of Present Illness Date Patient Seen: 01/05/18 Time Patient Seen: 10:52 Chief complaint: states diverticulitis is getting worse Narrative: Jocelyn is a 47 year old lady admitted with Diverticulitis. She had a CT scan in the ER that showed acute diverticulitis without perforation or abscess. Discharge Providers Date of admission: 01/01/18 22:15 Consults: 01/01/18 22:02 Consult to General Surgery Routine Comment: Consulting Provider: Gama Sneed Reason for consultation: diverticulitis Has provider been notified: Yes Discharge provider: Lyric Hernandez MD Discharge Date: 01/05/18 Summary Discharge Diagnosis: Diverticulitis Hospital Course: The patient was seen and evaluated and admitted with the above diagnosis. She was started on antibiotics. She has a history of C diff and so Flagyl was added to her antibiotics because significant nausea. By the day of discharge, her nausea has improved significantly and she is using minimal pain medication. She is discharged to home in the care of her . Discharge medications will include Augmentin and oral vancomycin for recurrent C diff prevention per up-to-date article on the subject we will see her back in 2 weeks.. Status at Discharge Cognitive/behavioral status at discharge: Normal Functional status at discharge: independent ambulation Overall status at discharge: patient is progressing back to baseline Time Spent with Patient Less than 30 minutes Exam Vital Signs (past 8 hours): - 01/05/18 03:45 Temperature 97.7 F Pulse Rate 66 Respiratory Rate 18 Blood Pressure 109/69 Pulse Oximetry 96 Oxygen Delivery Method Room Air Oxygen Flow Rate 0 Objective Labs Result Diagrams: 01/04/18 06:09 01/04/18 06:09 Labs: Laboratory Results - last 24 hr 01/04/18 07:50 C. difficile Tox (PCR) Negative for c. diff Discharge Plan Discharge Plan Patient Disposition: Home Discharge Med Rec/Prescriptions Prescriptions: New vancomycin 125 mg capsule 125 mg PO QID 10 Days Qty: 40 RF: 0 amoxicillin-pot clavulanate 875-125 mg tablet 1 tab PO BID Qty: 20 RF: 0 Continue levothyroxine 75 mcg tablet 1 tab PO DAILY RF: 0 buspirone 10 mg tablet 2 tab PO BID RF: 0 cariprazine [Vraylar] 3 mg capsule 1 tab PO QPM RF: 0 lorazepam 0.5 mg tablet 1 tab PO BID PRN (Reason: Anxiety) RF: 0 Discontinued metronidazole 500 mg tablet 1 tab PO TID RF: 0 ciprofloxacin HCl 500 mg tablet 1 tab PO BID RF: 0 Follow up/Referrals: [facility] [Provider Group] - 2 Weeks (Follow up Diverticulitis) Provider Discharge Instructions Diet: Diet as Tolerated Discharge Data Attending Provider: Gama Sneed Admit Date/Time: 01/01/18 22:15 Quality VTE Deep Vein Thrombosis/Pulmonary Embolism Present on Admission: No
== END 2018-01-05 12:26 | disposition home or self-care (01) | DRG 244 ==
LOC: ED 20:00 → AC 22:16
PROVIDERS: Surgery; Admitting Provider Surgery; Emergency Provider Nurse Practitioner Family; Family Provider Internal Medicine; Visit Provider Surgery
DX: K57.32 Diverticulitis of large intestine without perforation or abscess without bleeding (principal)
CPT/HCPCS: 36415; 36591; 74177; 80048; 80053; 81003; 81015; 83690; 85025; 87086; 87493; 94762; 96361; 96374; 96375; 99231; 99238; 99282; 99285; J1170; J2060; J2405; J2543; Q9967

== ENCOUNTER → 2018-01-21 11:26 | Outpatient (CLI) | payer OTHER, MEDICAID, SELFPAY ==
[2018-01-05 10:58] VITALS: BMI 26.1
== END ==
PROVIDERS: Family Provider Internal Medicine; Visit Provider Surgery
DX: Z53.8 Procedure and treatment not carried out for other reasons (principal)

== ENCOUNTER 2018-03-24 06:34 | Day surgery (SDC) | payer OTHER, MEDICAID, SELFPAY ==
[2018-01-05 10:58] VITALS: BMI 26.1
[2018-03-24] VITALS (7 sets, daily range): BP systolic 81–121; BP diastolic 45–83; PULSE 68–86; RESP 14–16; TEMP 36.2–37; O2SAT 98–100; BMI 25.7
[2018-03-24] MEDS: SODIUM CHLORIDE 0.9% 1,000 ML 200 ML IV (07:45)
[2018-03-24] MEDS: MIDAZOLAM 5 MG/5 ML VIAL IV (08:29)
[2018-03-24] MEDS: fentaNYL 250 MCG/5 ML INJ IV (08:30)
--- NOTE | 2018-03-24 08:58 | PM.HP.1 ---
History of Present Illness Date Patient Seen: 03/24/18 Time Patient Seen: 08:58 Chief complaint: [id number] Colonoscopy Narrative: Jocelyn is a pleasant 47-year-old lady who presents today for colonoscopy. She was recently admitted to the hospital for acute diverticulitis and did not complete her medications. She did contract C diff and was treated with oral vancomycin but also did not complete that. She went to [place] and developed a recurrence of her infection there. She presents today for colonoscopy as recommended after her acute episode. She denies any current abdominal pain. She reports that she feels well today. She denies any recent diarrhea. Patient History Medical History Bone spur of foot (Acute) Diverticulitis (Acute) H/O: hysterectomy (Acute) Surgical History History of Ivania fundoplication (Acute) History of bowel resection (Acute) History of carpal tunnel release (Acute) S/P correction of deviated nasal septum (Acute) S/P removal of left ovary (Acute) Family & Social History Family History: Reviewed 03/24/18 by Lyric Hernandez MD Social History: household members spouse Tobacco & Substance use: Smoking Status Current every day smoker alcohol intake never alcohol intake frequency 0-2 drinks per day Substance Use Type marijuana Meds Home Medications Medication Instructions Recorded Confirmed Type buspirone 2 tab PO BID 01/01/18 03/24/18 History cariprazine [Vraylar] 1 tab PO QPM 01/01/18 03/24/18 History levothyroxine 1 tab PO DAILY 01/01/18 03/24/18 History lorazepam 1 tab PO BID PRN 01/01/18 01/20/18 History oxycodone 5 mg PO Q4-6H PRN #14 tab 01/05/18 01/20/18 Rx Allergies Allergy/AdvReac Type Severity Reaction Status Date / Time lamotrigine [From LAMICTAL] Allergy Severe swelling Verified 03/24/18 07:08 lips, hands tongue Review of Systems Review of Systems All systems reviewed & are unremarkable except as noted in HPI and below Exam Vital Signs (past 8 hours): - 03/24/18 07:13 03/24/18 08:56 Temperature 97.8 F 98.6 F Pulse Rate 82 70 Respiratory Rate 15 14 Blood Pressure 121/83 81/45 L Pulse Oximetry 98 98 Oxygen Delivery Method Room Air Narrative Exam Narrative: Pleasant and fairly well-appearing 47-year-old lady in no obvious distress HEENT: Normocephalic and atraumatic, pupils equal round reactive to light accommodation with anicteric sclera Lungs: Clear bilaterally Heart: Regular rate and rhythm Abdomen: Soft, minimal tenderness to palpation left lower quadrant. Active bowel sounds. No rebound or guarding. No peritoneal signs. Extremities: Warm well perfused Assessment & Plan Plan: Assessment/Plan Narrative: 47-year-old lady with a recent episode of acute diverticulitis for which she did not complete her medications. She developed C diff after that. She presents today for screening colonoscopy. We discussed the risks and benefits of procedure and she has expressed a desire to complete it today. We will also obtain cultures for C diff.
--- NOTE | 2018-03-24 09:01 | PM.OP.1 ---
Operative Date/Time/Diagnoses Date of procedure: 03/24/18 Time of procedure: 09:01 Pre-op diagnosis: Screening Acute diverticulitis-recent but resolved Post-op diagnosis: same Procedure & Clinicians Procedure: Colonoscopy to the cecum Same procedure as scheduled: Yes Indications: No prior colonoscopy Surgeon: Lyric Hernandez Click Yes if Unassisted: Yes Anesthesia Type: Sedation (Versed 10 mg; fentanyl 250 mcg) Operative Notes Findings: 1. Adequate prep 2. No polyps or mass lesions 3. No true AV malformations but some very large and distended veins are noted in the left colon right at the sigmoid and descending colon junction 4. Significant and profound diverticulitis in the sigmoid region with very large and small takes and multiple false passages. Significant diverticulosis extends to the splenic flexure. Beyond that, the colon is spared 5. Grade 2 internal hemorrhoids Closure Type: not applicable Specimen(s): other (Stool PCR and C diff) Procedure in detail: After obtaining informed consent, the patient was brought to the GI suite and placed in the left lateral decubitus position on the examination table. After placement of appropriate monitors, the patient was given incremental doses of Versed and Fentanyl until an appropriate level of sedation was achieved. A time out was held per SCOAP protocol. A digital rectal examination was performed and did not reveal any masses or obstructing lesions. The colonoscope was gently passed into the patient's anus and the entire colon navigated to the level of the cecum with minimal difficulty. Once in the cecum, the scope was withdrawn being sure to go before and beyond all mucosal folds and prominences and get an excellent examination. The findings are noted above. At the level of the rectal vault, the scope was retroflexed and the internal anal canal was examined. The scope was straightened and air aspirated from the colon. The instrument was removed from the patient's body and the procedure was concluded. The patient was allowed to awaken from sedation without difficulty and taken to the post-anesthesia care unit in good condition. Total sedation time is 24 min Total withdrawal time was 8 min and 17 sec Complications: none Condition: stable Disposition: PACU Plan for aftercare: 1. Discharge to home 2. High-fiber diet and avoid constipation. Avoid constipation even in favor of diarrhea if necessary. 3. Next colonoscopy in 10 years or as clinically indicated 4. We will contact the patient with culture results
[2018-03-24 10:30] LABS: Clostridium Difficile Tox PCR Positive for C. diff
== END 2018-03-24 10:20 | disposition home or self-care (01) ==
PROVIDERS: Family Provider Internal Medicine; PCP Internal Medicine; Visit Provider Surgery
PROC: 0DJD8ZZ Inspection of Lower Intestinal Tract, Via Natural or Artificial Opening Endoscopic (ICD-10-PCS; CPT 45378; principal; 2018-03-24 07:45)
DX: Z12.11 Encounter for screening for malignant neoplasm of colon (principal); K64.1 Second degree hemorrhoids; K57.30 Diverticulosis of large intestine without perforation or abscess without bleeding; F17.210 Nicotine dependence, cigarettes, uncomplicated; Z87.19 Personal history of other diseases of the digestive system
CPT/HCPCS: 45378; 87015; 87045; 87427; 87493; 87899; 99152; 99153; J2250; J3010

== ENCOUNTER 2020-07-19 19:04 | Emergency (ER) | payer OTHER, MEDICAID, SELFPAY ==
[2018-01-05 10:58] VITALS: BMI 26.1
[2020-07-19 19:11] VITALS: BP 144/78; PULSE 90; RESP 16; TEMP 36.4; O2SAT 97; BMI 34.3
[2020-07-19 20:41] VITALS: BP 134/76; PULSE 82; RESP 16; TEMP 36.6; O2SAT 100
--- NOTE | 2020-07-19 21:27 | ED.GENADULT ---
HPI - General Adult General Chief complaint: Dental/Oral Stated complaint: states exposed nerve on a tooth Time Seen by Provider: 07/19/20 19:18 Source: patient Mode of arrival: Ambulatory Limitations: no limitations History of Present Illness HPI narrative: Patient is a 50-year-old female who is here for evaluation of a sore upper right side too. She did see a dentist earlier today who did x-rays and told her that her to needed to be old however they had no appointments that they could schedule her for this. She is on a cancellation list. She was not given any antibiotics. Was not given any pain medication. He is here because of discomfort in the tooth. Related Data Home Medications Medication Instructions Recorded Confirmed buspirone 2 tab PO BID 01/01/18 03/24/18 cariprazine [Vraylar] 1 tab PO QPM 01/01/18 03/24/18 levothyroxine 1 tab PO DAILY 01/01/18 03/24/18 lorazepam 1 tab PO BID PRN 01/01/18 01/20/18 Previous Rx's Medication Instructions Recorded oxycodone 5 mg PO Q4-6H PRN #14 tab 01/05/18 Allergies Allergy/AdvReac Type Severity Reaction Status Date / Time lamotrigine [From LAMICTAL] Allergy Severe swelling Verified 03/24/18 07:08 lips, hands tongue Review of Systems Constitutional Constitutional: Denies fever(s) and Denies headache(s) Eyes Eyes: Denies change in vision ENT Ears, Nose, Mouth, and Throat: Denies headache(s) Comments: Tooth pain Cardiovascular Cardiovascular: Denies chest pain and Denies dyspnea Respiratory Respiratory: Denies dyspnea Integumentary/Breasts Skin/Breast: Reports system reviewed and no additional complaints, except as documented Neurologic Neurologic: Reports system reviewed and no additional complaints, except as documented and Denies headache(s) Endocrine Endocrine: Reports system reviewed and no additional complaints, except as documented Hematologic/Lymphatic Hematologic/Lymphatic: Reports system reviewed and no additional complaints, except as documented Allergic/Immunologic Allergic/Immunologic: Reports system reviewed and no additional complaints, except as documented Patient History Medical History Bone spur of foot Diverticulitis Surgical History H/O: hysterectomy History of bowel resection History of carpal tunnel release History of Ivania fundoplication S/P correction of deviated nasal septum S/P removal of left ovary Family History Grandmother Ovarian cancer Family/Other Diabetes mellitus Social History marital status: household members: spouse occupational status: unemployed Smoking Status: Current every day smoker alcohol intake: never Smoking Status: Current every day smoker alcohol intake frequency: holidays/special occasions only Substance Use Type: does not use Exam Initial Vital Signs Initial Vital Signs: Vital Signs Temperature 97.6 F 07/19/20 19:11 Pulse Rate 90 07/19/20 19:11 Respiratory Rate 16 07/19/20 19:11 Blood Pressure 144/78 H 07/19/20 19:11 Pulse Oximetry 97 07/19/20 19:11 Const General: cooperative Limitations: mental status not altered HENMT Head: normal to inspection and normocephalic Ears: hearing grossly normal bilaterally Nose: external nose normal Face and sinus: normal facial exam Mouth: oral mucosae normal and tongue normal Teeth and gingiva: caries Throat: posterior oropharynx normal Resp Effort & Inspection: normal respiratory effort Cardio Rate: regular rate Skin Lesions: no lesions Rashes: no rashes Neuro General: patient alert and patient awake Cognition: normal cognition Speech: speech normal Extrem General: normal to inspection and capillary refill normal Psych Appearance: grossly normal and well kempt Procedures Nerve Block Nerve Block 1: Time out performed: Yes Local Anesthetic: lidocaine 1% Amount of anesthesia used (mL): 2 Side: right Intraoral Nerve Block: superior alveolar and infraorbital Procedure Successful: Yes Patient Tolerated Procedure: Well and No complications Complications: none Course Orders Ordered: Discontinued Medications Hydrocodone Bitart/Acetaminophen (Hydrocodone/Acet 5/325 Prepack) 1 bottle MISC SEEINSTR ONE Stop: 07/19/20 21:29 Last Admin: 07/19/20 21:38 Dose: 1 bottle Documented by: MARILU Lidocaine HCl (Lidocaine 1% (Pf)) 2 ml INJ NOW ONE Stop: 07/19/20 21:41 Last Admin: 07/19/20 21:42 Dose: 2 ml Documented by: HGUBERN Vital Signs Vital signs: Vital Signs - 8 hr 07/19/20 20:41 07/19/20 21:40 Temperature 97.9 F 98.5 F Pulse Rate 82 81 Respiratory Rate 16 18 Blood Pressure 134/76 120/71 Pulse Oximetry 100 98 Medical Decision Making MDM Narrative Medical decision making narrative: Location of her current discomfort located that teeth 4 and 5. There is no defined abscess seen here in the emergency department. She was seen by a dental earlier today and had x-rays performed and was not started on any antibiotics which makes pacing that there is low concern for an infection. Unfortunately definitive care cannot be performed here in the emergency department and she will need to wait until she can get in to see a dentist for this. A nerve block was performed in the patient did understand that this would only be a temporary procedure. We will hold on antibiotics for now. He is given return precautions and follow-up instructions. She expressed understanding and agreement. Discharge Plan Departure Patient Disposition: Home Clinical Impression: Dental caries Instructions: DI for Dental Pain Activity Restrictions/Additional Instructions: Recommend that you keep in contact with your dentist as the definitive treatment of your symptoms will require their expertise. Recommend you contact your primary provider for a follow-up. Prescriptions: No Action levothyroxine 75 mcg tablet 1 tab PO DAILY RF: 0 buspirone 10 mg tablet 2 tab PO BID RF: 0 cariprazine [Vraylar] 3 mg capsule 1 tab PO QPM RF: 0 lorazepam 0.5 mg tablet 1 tab PO BID PRN (Reason: Anxiety) RF: 0 oxycodone 5 mg tablet 5 mg PO Q4-6H PRN (Reason: pain) Qty: 14 RF: 0 Referrals: Ernesto Albrecht [Primary Care Provider] -
[2020-07-19] MEDS: HYDROCODONE/ACET 5/325 PREPACK 1 BOTTLE MISC (21:38)
[2020-07-19 21:40] VITALS: BP 120/71; PULSE 81; RESP 18; TEMP 36.9; O2SAT 98
[2020-07-19] MEDS: LIDOCAINE 1% (PF) 2 ML INJ (21:42)
== END 2020-07-19 22:10 | disposition home or self-care (01) ==
PROVIDERS: Emergency Provider Emergency Medicine; Family Provider Internal Medicine; PCP Internal Medicine
DX: K02.9 Dental caries, unspecified (principal)
CPT/HCPCS: 64450; 99283

== ENCOUNTER 2021-04-12 07:38 | Emergency (ER) | payer OTHER, MEDICAID, SELFPAY ==
[2018-01-05 10:58] VITALS: BMI 26.1
[2021-04-12] VITALS (20 sets, daily range): BP systolic 128–155; BP diastolic 76–90; PULSE 71–91; RESP 14–18; TEMP 35.9; O2SAT 96–99; BMI 34.3
--- NOTE | 2021-04-12 | DI.RAD.S_ITS ---
PROCEDURE: XR CHEST FOR PICC 1V INDICATIONS: PICC PLACEMENT COMPARISON: [facility], , CHEST 1 VIEW, 05/22/2017, 9:21. FINDINGS: PICC was placed by the intravenous therapy team from the left side. Fluoroscopic spot film demonstrates the tip of PICC projecting to the area of left axilla. IMPRESSION: Tip of peripherally inserted central/midline catheter projects to the area of the left axillary vein. Dictated by: Willy Huerta M.D. on 04/12/2021 at 13:28 Approved by: Willy Huerta M.D. on 04/12/2021 at 13:29
--- NOTE | 2021-04-12 08:13 | DI.CT.S_ITS ---
PROCEDURE: CT HEAD/BRAIN WO CON INDICATIONS: Severe dizziness TECHNIQUE: Noncontrast 4.5 mm thick angled axial sections acquired from the foramen magnum to the vertex, with coronal and sagittal reformats. For radiation dose reduction, the following was used: automated exposure control, adjustment of mA and/or kV according to patient size. COMPARISON: None. FINDINGS: Image quality: Excellent. CSF spaces: Basal cisterns are patent. No extra-axial fluid collections. Ventricles are normal in size and shape. Brain: No midline shift. No intracranial masses or hemorrhage. Garcia-white matter interface is normal. Skull and face: Calvarium and visualized facial bones are intact, without suspicious lesions. Sinuses: Visualized sinuses and mastoids are clear. IMPRESSION: Unremarkable noncontrast head CT, without an imaging explanation found for the patient's presenting history. If it would be helpful for clinical management decision making, please consider a scheduled, dedicated brain MRI (IAC protocol, without and with contrast) for further evaluation (assuming that there is no contraindication). Dictated by: Jose Juan Hernandez M.D. on 04/12/2021 at 7:40 Approved by: Jose Juan Hernandez M.D. on 04/12/2021 at 7:42
--- NOTE | 2021-04-12 08:14 | ED_ITS ---
HPI - Dizziness General Chief Complaint: Dizziness Stated Complaint: whole world spinning,back of neck hurts Time Seen by Provider: 04/12/21 07:57 Source: patient and family Mode of arrival: Wheelchair Limitations: no limitations History of Present Illness HPI Narrative: The patient awoke this morning with extreme dizziness. She has counter- clockwise spinning. Moving her eyes exacerbate symptoms. She has no acute visual changes. She denies confusion, speech changes, weakness or numbness. She denies recent URI symptoms. She has no ear discomfort, no sinus pressure or congestion. She denies chest pain or dyspnea. She has no palpitations. She has a prior history of vertigo. She has no seasonal allergies. She has no recent medication changes. She is on medications for bipolar disorder, as well as hyperthyroidism. She is compliant with her current medication regimen. Related Data Home Medications Medication Instructions Recorded Confirmed buspirone 10 mg tablet 2 tab PO BID 01/01/18 03/24/18 cariprazine 3 mg capsule 1 tab PO QPM 01/01/18 03/24/18 levothyroxine 75 mcg tablet 1 tab PO DAILY 01/01/18 03/24/18 lorazepam 0.5 mg tablet 1 tab PO BID PRN 01/01/18 01/20/18 Previous Rx's Medication Instructions Recorded oxycodone 5 mg tablet 5 mg PO Q4-6H PRN #14 tab 01/05/18 diazepam 5 mg tablet (Valium) 5 mg PO TID PRN #15 tab 04/12/21 meclizine 25 mg tablet 25 mg PO QID PRN #30 tab 04/12/21 Allergies Allergy/AdvReac Type Severity Reaction Status Date / Time lamotrigine [From LAMICTAL] Allergy Severe swelling Verified 03/24/18 07:08 lips, hands tongue Review of Systems Review of Systems ROS Unobtainable: All systems reviewed & are unremarkable except as noted in HPI and below Constitutional Constitutional: Denies body ache(s), Denies chills, Denies fever(s), Denies headache(s), Denies malaise and Denies weakness Eyes Eyes: Denies blurry vision, Denies change in vision and Denies loss of vision ENT Ears, Nose, Mouth, and Throat: Denies vertigo, Denies dizziness, Denies headache(s) and Denies hoarseness Cardiovascular Cardiovascular: Denies chest pain, Denies syncope, Denies rapid heart rate, Denies irregular heart rhythm and Denies dyspnea Respiratory Respiratory: Denies cough and Denies dyspnea Gastrointestinal Gastrointestinal: Denies abdominal pain and Denies nausea Genitourinary Comments: No urinary symptoms Musculoskeletal Musculoskeletal: Denies arthralgias, Denies back pain, Denies myalgias and Denies numbness Integumentary/Breasts Skin/Breast: Denies lesions and Denies rash Neurologic Neurologic: Denies vertigo, Denies dizziness, Denies syncope, Denies headache(s), Denies loss of vision, Denies memory loss, Denies numbness and Denies weakness Psychiatric Psychiatric: Denies anxiety, Denies memory loss and Denies panic attacks Hematologic/Lymphatic On Anticoagulants: No Patient History Medical History (Updated 04/12/21 @ 15:28 by Kel Downs MD) Bipolar 1 disorder Bone spur of foot Diverticulitis Hypothyroid Surgical History H/O: hysterectomy History of bowel resection History of carpal tunnel release History of Ivania fundoplication S/P correction of deviated nasal septum S/P removal of left ovary Family History Grandmother Ovarian cancer Family/Other Diabetes mellitus Social History marital status: household members: spouse occupational status: unemployed Smoking Status: Current every day smoker alcohol intake: never Smoking Status: Current every day smoker alcohol intake frequency: holidays/special occasions only Substance Use Type: does not use Exam Initial Vital Signs Initial Vital Signs: Vital Signs Temperature 96.7 F L 04/12/21 07:40 Pulse Rate 80 04/12/21 07:40 Respiratory Rate 18 04/12/21 07:40 Blood Pressure 139/81 04/12/21 07:40 Pulse Oximetry 99 04/12/21 07:40 Const General: cooperative, healthy appearing, comfortable, well developed and well groomed [facility] Head: normocephalic and atraumatic Ears: TM's normal bilaterally Nose: nares normal Face and sinus: sinuses nontender Mouth: oral mucosae normal Throat: posterior oropharynx normal Eyes Conjunctivae: conjunctivae normal Sclera: sclerae normal Pupils: PERRL EOM: EOM intact bilaterally Neck Neck: normal visual inspection and No JVD Resp Effort & Inspection: normal respiratory effort, no audible wheezes and no cough Auscultation: clear to auscultation bilaterally Cardio Rate: regular rate Rhythm: regular rhythm Heart Sounds: S1 normal, S2 normal, no click, no murmurs and no rubs GI Inspection: normal to inspection Palpation: soft, No mass and No tender Auscultation: normal bowel sounds Skin General: no rashes or lesions noted Neuro General: patient alert, patient awake, patient oriented x3 and Nir Hallpike (Testing was immediately positive and was aborted due to her severe reaction) Cranial Nerves: CN's II-XI intact bilaterally Cognition: normal cognition Speech: speech normal Motor: muscle tone normal throughout Sensory Exam: no sensory deficits noted Coordination: [id number] test normal and bxfi-jh-[id number] test normal Extrem General: normal to inspection, full ROM, no pedal edema and no calf tenderness Psych Mental Status: mental status grossly normal Course Course Course Narrative: The patient received Meclizine, then Valium. Meclizine was repeated. Head CT and head and neck CTA are normal. She remains symptomatic but is improved. She is up and ambulatory without severe dizziness, and without nausea vomiting. She is discharged home on both meclizine and Valium. She is advised follow-up with her doctor this week, if not improving she should seek physical therapy. Orders Ordered: ED Orders 04/12/21 08:01 EKG-12 Lead Stat 04/12/21 08:13 CT head/brain wo con Stat 04/12/21 08:56 CBC Auto Diff [Complete Blood Count AUTO DIFF] Stat CMP [Comprehensive Metabolic Panel] Stat Prothrombin Time INR Stat Troponin & CK Cardiac Panel Stat 04/12/21 09:27 CT angio head and neck Stat Discontinued Medications Diazepam (Diazepam 10 Mg/2 Ml Syringe) 5 mg IV NOW ONE Stop: 04/12/21 09:27 Last Admin: 04/12/21 10:05 Dose: Not Given Documented by: OPAL Diazepam (Diazepam 5 Mg Tablet) 5 mg PO NOW ONE Stop: 04/12/21 10:06 Last Admin: 04/12/21 10:09 Dose: 5 mg Documented by: STEVE Meclizine HCl (Meclizine Hcl 12.5 Mg Tablet) 50 mg PO NOW ONE Stop: 04/12/21 08:14 Last Admin: 04/12/21 08:15 Dose: 50 mg Documented by: EITAN Meclizine HCl (Meclizine Hcl 12.5 Mg Tablet) 25 mg PO NOW ONE Stop: 04/12/21 13:54 Last Admin: 04/12/21 13:58 Dose: 25 mg Documented by: STEVE Vital Signs Vital signs: Vital Signs - 8 hr 04/12/21 07:40 04/12/21 08:19 04/12/21 08:38 Temperature 96.7 F L Pulse Rate 80 91 H 75 Respiratory Rate 18 18 18 Blood Pressure 139/81 139/81 Pulse Oximetry 99 99 96 04/12/21 09:00 04/12/21 09:14 04/12/21 09:30 Temperature Pulse Rate 80 71 71 Respiratory Rate Blood Pressure 143/89 H 147/88 H Pulse Oximetry 98 98 99 04/12/21 10:00 04/12/21 10:30 04/12/21 10:36 Temperature Pulse Rate 81 78 75 Respiratory Rate Blood Pressure 155/76 H 137/85 131/76 Pulse Oximetry 99 98 99 04/12/21 11:00 04/12/21 11:30 04/12/21 12:00 Temperature Pulse Rate 75 76 78 Respiratory Rate Blood Pressure 130/78 134/81 128/80 Pulse Oximetry 98 97 97 04/12/21 12:30 04/12/21 13:00 04/12/21 13:30 Temperature Pulse Rate 79 81 82 Respiratory Rate Blood Pressure 130/80 Pulse Oximetry 98 98 04/12/21 13:52 04/12/21 14:00 04/12/21 14:30 Temperature Pulse Rate 75 77 75 Respiratory Rate 14 18 Blood Pressure 134/84 149/83 H 144/90 H Pulse Oximetry 97 97 99 04/12/21 15:00 Temperature Pulse Rate 72 Respiratory Rate 15 Blood Pressure 134/84 Pulse Oximetry 97 MDM - Dizziness Lab Data Result diagrams: 04/12/21 08:56 04/12/21 08:56 Labs: Lab Results 04/12/21 04/12/21 04/12/21 Range/Units 08:56 08:56 08:56 WBC 7.1 (4.5-11.0) X10^3/uL RBC 4.84 (4.0-5.2) X10^6/uL Hgb 15.1 (12.0-16.0) g/dL Hct 44.2 (36-46) % MCV 91.3 (80-100) fL MCH 31.2 (26-34) PG MCHC 34.2 (30-36) % RDW 14.3 (11.6-14.8) % Plt Count 137 L (150-400) X10^3/uL Neut % (Auto) 64.0 (50-75) % Lymph % (Auto) 26.9 (25-40) % [place] % (Auto) 7.0 (3-14) % Eos % (Auto) 1.3 L (2-4) % Baso % (Auto) 0.8 (0-2) % Neut # (Auto) 4500 (2460-6964) /uL Lymph # (Auto) 1900 (5225-0900) /uL [place] # (Auto) 500 (0-900) /uL Eos # (Auto) 100 (0-450) /uL Baso # (Auto) 100 (0-100) /uL PT 11.5 (10.1-12.7) SECONDS INR 1.0 (0.9-1.3) Sodium 140 (137-145) mmol/L Potassium 4.4 (3.4-5.1) mmol/L Chloride 108 H (98-107) mmol/L Carbon Dioxide 28 (22-32) mmol/L BUN 9 (7-17) mg/dL Creatinine 0.74 (0.52-1.04) mg/dL Estimated GFR > 60.0 (>60) mL/min BUN/Creatinine Ratio 12.2 (6-22) Glucose 89 (70-100) mg/dL Calcium 9.2 (8.4-10.2) mg/dL Total Bilirubin 0.5 (0.2-1.3) mg/dL AST 22 (14-36) IU/L ALT 13 (<35) IU/L Alkaline Phosphatase 84 (38-126) U/L Total Creatine Kinase 89 (30-135) U/L CK-MB (CK-2) TNP CK-MB (CK-2) Rel Index TNP Troponin I < 0.012 (0.01-0.034) ng/mL Total Protein 6.9 (6.3-8.2) g/dL Albumin 4.0 (3.5-5.0) g/dL Globulin 2.9 (1.7-4.1) g/dL Albumin/Globulin Ratio 1.4 (1.0-2.8) Imaging Data CT scan - head: Radiologist's Impression: PROCEDURE:? CT HEAD/BRAIN WO CON ? INDICATIONS:? Severe dizziness ? TECHNIQUE:? Noncontrast 4.5 mm thick angled axial sections acquired from the foramen magnum to the vertex, with coronal and sagittal reformats.? For radiation dose reduction, the following was used:? automated exposure control, adjustment of mA and/or kV according to patient size.? ? COMPARISON:? None. ? FINDINGS:? Image quality:? Excellent.? ? CSF spaces:? Basal cisterns are patent.? No extra-axial fluid collections.? Ventricles are normal in size and shape.? ? Brain:? No midline shift.? No intracranial masses or hemorrhage.? Garcia-white matter interface is normal.? ? Skull and face:? Calvarium and visualized facial bones are intact, without suspicious lesions.? ? Sinuses:? Visualized sinuses and mastoids are clear.? IMPRESSION:? Unremarkable noncontrast head CT, without an imaging explanation found for the patient's presenting history. ? If it would be helpful for clinical management decision making, please consider a scheduled, dedicated brain MRI (IAC protocol, without and with contrast)? for further evaluation (assuming that there is no contraindication).? CTA head and neck: Radiologist's Impression: PROCEDURE:? CT ANGIO HEAD AND NECK ? INDICATIONS:? Severe dizziness ? TECHNIQUE:? After the administration of intravenous contrast, 1 mm thick sections acquired from the aortic arch through the [place] of [place].? Post-contrast 4.5 mm thick sections then re-acquired from the foramen magnum to the vertex.? 3-dimensional czmtjgz-eizfovsbf-ucwpfwovcq (MIP) and/or volume rendering reformats were acquired of the central intracranial vasculature and neck separately. ? COMPARISON:? [facility], CT, CT HEAD/BRAIN WO CON, 04/12/2021, 8:26. ? FINDINGS:? Image quality:? Excellent.? ? BRAIN:? CSF spaces:? Ventricles are normal in size and shape.? Basal cisterns are patent.? No extra-axial fluid collections.? ? Brain:? No midline shift.? No intracranial bleeds or masses.? Garcia-white matter interface appears intact.? ? Skull and face:? Calvarium and facial bones appear intact, without suspicious lesions.? Orbits appear normal.? ? Sinuses:? Sinuses and mastoids are clear.? ? HEAD CT ANGIOGRAPHY:? Anterior circulation:? Mild calcified atherosclerosis within the intracranial portion of the right internal carotid artery without hemodynamically significant stenosis.? The intracranial left internal carotid artery is patent.? The flow within the paired anterior cerebral arteries is normal and symmetric.? The flow within the middle cerebral arteries is normal and symmetric.? The anterior communicating artery is seen.? No aneurysms are seen.? ? Posterior circulation:? Visualized portions of the vertebral arteries demonstrate normal caliber, and join to form a normal appearing basilar artery.? Flow within the posterior cerebral arteries is normal and symmetric.? No definite right posterior inferior cerebellar artery is seen, although this may be secondary to congenital vari ation.? No aneurysms are seen.? ? NECK CT ANGIOGRAPHY:? Carotid system:? The great vessels demonstrate a conventional anatomy as they arise from the aortic arch.? The origins of the common carotid arteries appear patent.? The common carotid arteries demonstrate normal caliber and courses.? The bifurcation regions are both widely patent.? The internal carotid arteries demonstrate normal calibers and courses.? ? Posterior circulation:? The origins of the vertebral arteries both appear widely patent.? The more superior extracranial portions of both vertebral arteries also demonstrate normal courses and calibers.? They join to form a normal appearing basilar artery.? ? Soft tissues:? Visualized neck soft tissues demonstrate no suspicious abnormalities.? ? Bones:? No suspicious bony lesions.? Degenerative changes are seen in the cervical spine. ? ? IMPRESSION:? No hemodynamically significant arterial stenosis or occlusion is seen head or neck. ? Any quantitative measurements of stenosis were performed using NASCET criteria.? ? ? Dictated by: Willy Huerta M.D. on 04/12/2021 at 14:03 ? ? Approved by: Willy Huerta M.D. on 04/12/2021 at 14:11?? ECG Data Attestation: I personally reviewed and interpreted this ECG as follows: (Normal sinus rhythm rate 86 beats per minute. Motion artifact. Normal intervals. No ectopy. No acute ST T wave changes.) Discharge Plan Departure Patient Disposition: Home Clinical Impression: Acute labyrinthitis Instructions: Labyrinthitis Activity Restrictions/Additional Instructions: Continue your current medications. Meclizine every 6 hours as needed for dizziness. Valium every 6-8 hours as needed for added treatment for dizziness if necessary If not improved over the next 2-4 days, contact your doctor. You may need physical therapy for the dizziness. Return to the ER as necessary Prescriptions: New meclizine 25 mg tablet 25 mg PO QID PRN (Reason: dizziness) Qty: 30 1RF diazepam [Valium] 5 mg tablet 5 mg PO TID PRN (Reason: dizziness) Qty: 15 0RF No Action levothyroxine 75 mcg tablet 1 tab PO DAILY 0RF buspirone 10 mg tablet 2 tab PO BID 0RF cariprazine [Vraylar] 3 mg capsule 1 tab PO QPM 0RF lorazepam 0.5 mg tablet 1 tab PO BID PRN (Reason: Anxiety) 0RF oxycodone 5 mg tablet 5 mg PO Q4-6H PRN (Reason: pain) Qty: 14 0RF Referrals: Ernesto Albrecht [Primary Care Provider] - Stand Alone Forms: Work Release Note
[2021-04-12] MEDS: MECLIZINE HCL 12.5 MG TABLET 50 MG PO (08:15)
[2021-04-12 09:04] LABS: Add Manual Diff / Slide Review NO; Basophils Absolute Auto 100 /uL (0-100); Basophils Percent Auto 0.8 % (0-2); Eosinophils Absolute Auto 100 /uL (0-450); Eosinophils Percent Auto 1.3 % (2-4); Hematocrit 44.2 % (36-46); Hemoglobin 15.1 g/dL (12.0-16.0); Lymphocytes Absolute Auto 1900 /uL (1100-4500); Lymphocytes Percent Auto 26.9 % (25-40); Mean Corpuscular HGB Conc 34.2 % (30-36); Mean Corpuscular Hemoglobin 31.2 PG (26-34); Mean Corpuscular Volume 91.3 fL (80-100); Monocytes Absolute Auto 500 /uL (0-900); Neutrophils Absolute Auto 4500 /uL (1500-7000); Platelet Count 137 X10^3/uL (150-400); Red Blood Cell Count 4.84 X10^6/uL (4.0-5.2); Red Cell Distribution Width 14.3 % (11.6-14.8); White Blood Cell Count 7.1 X10^3/uL (4.5-11.0)
[2021-04-12 09:15] LABS: Prothrombin Time 11.5 SECONDS (10.1-12.7)
[2021-04-12 09:16] LABS: Alanine Aminotransferase 13 IU/L (<35); Albumin Globulin Ratio 1.4 (1.0-2.8); Alkaline Phosphatase 84 U/L (38-126); Aspartate Aminotransferase 22 IU/L (14-36); BUN Creatinine Ratio 12.2 (6-22); Bilirubin Total 0.5 mg/dL (0.2-1.3); Blood Urea Nitrogen 9 mg/dL (7-17); Calcium 9.2 mg/dL (8.4-10.2); Carbon Dioxide 28 mmol/L (22-32); Chloride 108 mmol/L (98-107); Creatine Kinase 89 U/L (30-135); Estimated Glomerular Filt Rate > 60.0 mL/min (>60); Globulin 2.9 g/dL (1.7-4.1); Glucose 89 mg/dL (70-100); HEMOLYSIS < 15 (0-50); Potassium 4.4 mmol/L (3.4-5.1); Sodium 140 mmol/L (137-145); Total Protein 6.9 g/dL (6.3-8.2)
[2021-04-12 09:27] LABS: Troponin I < 0.012 ng/mL (0.01-0.034)
--- NOTE | 2021-04-12 09:27 | DI.CT.S_ITS ---
PROCEDURE: CT ANGIO HEAD AND NECK INDICATIONS: Severe dizziness TECHNIQUE: After the administration of intravenous contrast, 1 mm thick sections acquired from the aortic arch through the [place] of [place]. Post-contrast 4.5 mm thick sections then re-acquired from the foramen magnum to the vertex. 3-dimensional fazvdge-wajufkyjm-xtckyanrwd (MIP) and/or volume rendering reformats were acquired of the central intracranial vasculature and neck separately. COMPARISON: [facility], CT, CT HEAD/BRAIN WO CON, 04/12/2021, 8:26. FINDINGS: Image quality: Excellent. BRAIN: CSF spaces: Ventricles are normal in size and shape. Basal cisterns are patent. No extra-axial fluid collections. Brain: No midline shift. No intracranial bleeds or masses. Garcia-white matter interface appears intact. Skull and face: Calvarium and facial bones appear intact, without suspicious lesions. Orbits appear normal. Sinuses: Sinuses and mastoids are clear. HEAD CT ANGIOGRAPHY: Anterior circulation: Mild calcified atherosclerosis within the intracranial portion of the right internal carotid artery without hemodynamically significant stenosis. The intracranial left internal carotid artery is patent. The flow within the paired anterior cerebral arteries is normal and symmetric. The flow within the middle cerebral arteries is normal and symmetric. The anterior communicating artery is seen. No aneurysms are seen. Posterior circulation: Visualized portions of the vertebral arteries demonstrate normal caliber, and join to form a normal appearing basilar artery. Flow within the posterior cerebral arteries is normal and symmetric. No definite right posterior inferior cerebellar artery is seen, although this may be secondary to congenital variation. No aneurysms are seen. NECK CT ANGIOGRAPHY: Carotid system: The great vessels demonstrate a conventional anatomy as they arise from the aortic arch. The origins of the common carotid arteries appear patent. The common carotid arteries demonstrate normal caliber and courses. The bifurcation regions are both widely patent. The internal carotid arteries demonstrate normal calibers and courses. Posterior circulation: The origins of the vertebral arteries both appear widely patent. The more superior extracranial portions of both vertebral arteries also demonstrate normal courses and calibers. They join to form a normal appearing basilar artery. Soft tissues: Visualized neck soft tissues demonstrate no suspicious abnormalities. Bones: No suspicious bony lesions. Degenerative changes are seen in the cervical spine. IMPRESSION: No hemodynamically significant arterial stenosis or occlusion is seen head or neck. Any quantitative measurements of stenosis were performed using NASCET criteria. Dictated by: Willy Huerta M.D. on 04/12/2021 at 14:03 Approved by: Willy Huerta M.D. on 04/12/2021 at 14:11
[2021-04-12] MEDS: diazePAM 5 MG TABLET PO (10:09)
--- NOTE | 2021-04-12 10:15 | PC.NURSE ---
Pt states she is an extremely difficult blood draw and IV stick. States a specialist has to insert a special IV. Lab came up to draw the patient and the greenskeeper laborer stated she is a very difficult blood draw. ED [facility] [place] has paged the nurse DI service, ETA [id number] for IV service.
--- NOTE | 2021-04-12 12:23 | PC.NURSE ---
ASHLEY RN traveler @ the bedside to perform IV insertion. aware.
[2021-04-12] MEDS: MECLIZINE HCL 12.5 MG TABLET 25 MG PO (13:58)
== END 2021-04-12 15:46 | disposition home or self-care (01) ==
PROVIDERS: Emergency Provider Emergency Medicine; Family Provider Internal Medicine; PCP Internal Medicine
DX: H83.09 Labyrinthitis, unspecified ear (principal); F17.200 Nicotine dependence, unspecified, uncomplicated
CPT/HCPCS: 36415; 70450; 70496; 70498; 80053; 82550; 84484; 85025; 85610; 93005; 93010; 99284; Q9967

== ENCOUNTER 2021-04-27 11:43 | Emergency (ER) | payer OTHER, MEDICAID, SELFPAY ==
[2018-01-05 10:58] VITALS: BMI 26.1
[2021-04-27 12:00] VITALS: BP 151/94; PULSE 93; O2SAT 98
[2021-04-27 12:03] VITALS: BP 151/94; PULSE 91; RESP 18; TEMP 36.1; O2SAT 98; BMI 35.1
--- NOTE | 2021-04-27 12:29 | ED_ITS ---
HPI - Neck Pain/Injury <Shauna Meadows, [facility] - Last Filed: 04/27/21 13:15> General Chief Complaint: Neck Pain/Injury Stated Complaint: NECK PAIN, HEADACHE,PAIN SHOOTING DOWN ARMS Time Seen by Provider: 04/27/21 12:05 Mode of arrival: Ambulatory History of Present Illness HPI Narrative: 50-year-old female with history of bipolar disorder, hypothyroidism, cervical radiculopathy from osteoarthritis from C4-C7, diverticulitis with C diff, and acute labyrinthitis who presents to the emergency department complaining of neck pain with associated shoulder pain which has been flaring for 1 week. Patient was seen in the emergency department for this and dizziness on 04/12/2021 and a cervical spine CTA was completed without hemodynamically significant arterial stenosis, or any occlusion in the head and neck; degenerative changes are seen in the cervical spine without any acute or emergent pathology. Patient denies any weakness in any extremity, numbness or tingling in her lower extremities, states occasional tingling and shooting pain in her arms, complains of pain unrelieved by Tylenol at home. Patient saw orthopedics for this who referred her back to her primary care provider for advanced imaging. Patient went back to her primary care provider who ordered cervical spine x-rays osteoarthritic changes from C4-C7. Patient has seen vestibular physical therapy for her dizziness but she has not seen physical therapy for her neck pain and radiculopathy. Patient states that she is leaving town in a couple of days and wanted to come to the emergency department to get which she needed to treat her pain for her trip. Patient denies any incontinence, any syncope, endorses nausea without vomiting or diarrhea. She denies any trauma or any exacerbation movements that she knows of. Related Data Home Medications Medication Instructions Recorded Confirmed buspirone 10 mg tablet 2 tab PO BID 01/01/18 03/24/18 cariprazine 3 mg capsule 1 tab PO QPM 01/01/18 03/24/18 levothyroxine 75 mcg tablet 1 tab PO DAILY 01/01/18 03/24/18 lorazepam 0.5 mg tablet 1 tab PO BID PRN 01/01/18 01/20/18 Previous Rx's Medication Instructions Recorded oxycodone 5 mg tablet 5 mg PO Q4-6H PRN #14 tab 01/05/18 diazepam 5 mg tablet (Valium) 5 mg PO TID PRN #15 tab 04/12/21 meclizine 25 mg tablet 25 mg PO QID PRN #30 tab 04/12/21 diclofenac sodium 1 % topical gel 2 g TOPICAL QID PRN #100 g 04/27/21 (Voltaren Arthritis Pain) hydrocodone 5 mg-acetaminophen 325 1 tab PO BID PRN #10 tab 04/27/21 mg tablet lidocaine 5 % topical patch 1 patch TOPICAL DAILY PRN #15 ea 04/27/21 methocarbamol 500 mg tablet 500 mg PO TID PRN #20 tab 04/27/21 Allergies Allergy/AdvReac Type Severity Reaction Status Date / Time lamotrigine [From LAMICTAL] Allergy Severe swelling Verified 03/24/18 07:08 lips, hands tongue Review of Systems <YADY Curran - Last Filed: 04/27/21 13:15> Review of Systems Narrative: General: denies fever, chills, malaise, sweats, fatigue Head/Neck: endorses headache from neck pain, but neck pain is worse, dizziness at baseline which has been ongoing for >1 month Eyes: denies visual changes, eye pain Cardio: denies chest pain, palpitations, edema Respiratory: denies dyspnea, cough, orthopnea GI: denies abdominal pain, nausea, vomiting, or diarrhea : denies dysuria, hematuria, urinary retention, frequency or incontinence MSK: denies joint pain, muscle weakness, any extremity weakness Skin: denies rash, itching, skin lesions or other Neuro: denies numbness, tingling Patient History <YADY Curran - Last Filed: 04/27/21 13:15> Medical History Bipolar 1 disorder Bone spur of foot Diverticulitis Hypothyroid Surgical History H/O: hysterectomy History of bowel resection History of carpal tunnel release History of Ivania fundoplication S/P correction of deviated nasal septum S/P removal of left ovary Family History Grandmother Ovarian cancer Family/Other Diabetes mellitus Social History marital status: household members: spouse occupational status: unemployed Smoking Status: Current every day smoker alcohol intake: never Smoking Status: Current every day smoker alcohol intake frequency: holidays/special occasions only Substance Use Type: does not use Exam <YADY Curran - Last Filed: 04/27/21 13:15> Narrative Exam Narrative: Independently reviewed vitals signs and nursing notes. General: Cooperative, comfortable, in no acute distress, Head/Neck: Normal visual inspection and supple, atraumatic, no JVD or lymphadenopathy. Symmetrical face expressions, no range of motion deficit the patient states limited turning ability due to pain, no point tenderness on exam to cervical spine but there is associated muscle tension and muscular tenderness with palpation Eyes: Pupils equal round and reactive, EOMI, conjunctiva normal, no scleral icterus or injections Nose: External nose normal, nares patent, no rhinorrhea, without purulent drainage Mouth/Throat: uvula midline, moist mucus membranes Cardio: Regular rate and rhythm, no peripheral edema, warm extremities Respiratory: Normal respiratory effort, able to speak in complete sentences without audible wheezing, stridor, or rales. No retractions. GI: Abdomen soft, nontender to palpation, non-distended MSK: neurovascularly intact, tone normal, moves all extremities with equal strength, equal radial pulses bilaterally, 2+ Skin: Normal capillary refill, no rash Neuro: Normal speech and cognition, normal gait, A&O x3, Psych: Mental status is grossly normal, speech is clear, congruent mood, normal affect Initial Vital Signs Initial Vital Signs: Vital Signs Pulse Rate 93 H 04/27/21 12:00 Blood Pressure 151/94 H 04/27/21 12:00 Pulse Oximetry 98 04/27/21 12:00 Course <YADY Curran - Last Filed: 04/27/21 13:15> Orders Ordered: Discontinued Medications Famotidine (Famotidine 20 Mg Tablet) 20 mg PO BID [facility] Last Admin: 04/27/21 12:37 Dose: 20 mg Documented by: ODILIA Ketorolac Tromethamine (Ketorolac 30 Mg/Ml Vial) 15 mg IM NOW ONE Stop: 04/27/21 12:22 Last Admin: 02/20/22 12:36 Dose: 15 mg Documented by: ODILIA Lidocaine (Lidocaine Patch 1 Each Adh..Patch) 1 each TOP NOW ONE Stop: 04/27/21 12:22 Last Admin: 04/27/21 12:38 Dose: 1 each Documented by: ODILIA Methocarbamol (Methocarbamol 500 Mg Tablet) 500 mg PO NOW ONE Stop: 04/27/21 12:22 Last Admin: 04/27/21 12:37 Dose: 500 mg Documented by: ODILIA Oxycodone/Acetaminophen (Oxycodone/Acetaminophen 5/325 Tablet) 1 tab PO NOW ONE Stop: 04/27/21 12:22 Last Admin: 04/27/21 12:37 Dose: 1 tab Documented by: ODILIA Vital Signs Vital signs: Vital Signs - 8 hr 04/27/21 12:00 04/27/21 12:03 04/27/21 12:30 Temperature 96.9 F L Pulse Rate 93 H 91 H 85 Respiratory Rate 18 Blood Pressure 151/94 H 151/94 H 136/90 Pulse Oximetry 98 98 98 04/27/21 13:04 Temperature 98.4 F Pulse Rate 89 Respiratory Rate 18 Blood Pressure 136/92 H Pulse Oximetry 98 MDM - Neck Pain/Injury <Shauna Meadows [facility] - Last Filed: 04/27/21 13:15> Imaging Data CT - cervical spine: Radiologist's Impression: PROCEDURE:? CT ANGIO HEAD AND NECK ? INDICATIONS:? Severe dizziness ? TECHNIQUE:? After the administration of intravenous contrast, 1 mm thick sections acquired from the aortic arch through the [place] of [place].? Post-contrast 4.5 mm thick sections then re-acquired from the foramen magnum to the vertex.? 3-dimensional rnyzbuj-cidzacvbm-foovlpdwye (MIP) and/or volume rendering reformats were acquired of the central intracranial vasculature and neck separately. ? COMPARISON:? [facility], CT, CT HEAD/BRAIN WO CON, 04/12/2021, 8:26. ? FINDINGS:? Image quality:? Excellent.? ? BRAIN:? CSF spaces:? Ventricles are normal in size and shape.? Basal cisterns are patent.? No extra-axial fluid collections.? ? Brain:? No midline shift.? No intracranial bleeds or masses.? Garcia-white matter interface appears intact.? ? Skull and face:? Calvarium and facial bones appear intact, without suspicious lesions.? Orbits appear normal.? ? Sinuses:? Sinuses and mastoids are clear.? ? HEAD CT ANGIOGRAPHY:? Anterior circulation:? Mild calcified atherosclerosis within the intracranial portion of the right internal carotid artery without hemodynamically significant stenosis.? The intracranial left internal carotid artery is patent.? The flow within the paired anterior cerebral arteries is normal and symmetric.? The flow within the middle cerebral arteries is normal and symmetric.? The anterior communicating artery is seen.? No aneurysms are seen.? ? Posterior circulation:? Visualized portions of the vertebral arteries demonstrate normal caliber, and join to form a normal appearing basilar artery.? Flow within the posterior cerebral arteries is normal and symmetric.? No definite right posterior inferior cerebellar artery is seen, although this may be secondary to congenital variation.? No aneurysms are seen.? ? NECK CT ANGIOGRAPHY:? Carotid system:? The great vessels demonstrate a conventional anatomy as they arise from the aortic arch.? The origins of the common carotid arteries appear patent.? The common carotid arteries demonstrate normal caliber and courses.? The bifurcation re gions are both widely patent.? The internal carotid arteries demonstrate normal calibers and courses.? ? Posterior circulation:? The origins of the vertebral arteries both appear widely patent.? The more superior extracranial portions of both vertebral arteries also demonstrate normal courses and calibers.? They join to form a normal appearing basilar artery.? ? Soft tissues:? Visualized neck soft tissues demonstrate no suspicious abnormalities.? ? Bones:? No suspicious bony lesions.? Degenerative changes are seen in the cervical spine. ? ? IMPRESSION:? No hemodynamically significant arterial stenosis or occlusion is seen head or neck. ? Any quantitative measurements of stenosis were performed using NASCET criteria.? ? ? Dictated by: Willy Huerta M.D. on 04/12/2021 at 14:03 ? ? Approved by: Willy Huerta M.D. on 04/12/2021 at 14:11 ? MDM Narrative Medical decision making narrative: This is a 50-year-old female smoker with history of bipolar disorder, diverticulitis w/C.diff, hypothyroidism and current labyrinthitis and degenerative cervical spine changes who presents to the emergency department with chief complaint ongoing neck pain unrelieved by Tylenol at home. Patient has been seen by her primary care provider to times for this issue, she has had cervical spine x-rays which showed osteoarthritis and degenerative changes from C4-C7, she had a emergency department visit at [facility] for dizziness without trauma on 04/12/2021 and had a CTA of her cervical spine which noted degenerative changes in her cervical spine without any acute or emergent pathology, no vascular occlusion or significant stenosis was seen. Patient came to the emergency department seeking pain control prior to a trip that she is going on in 2 days. Patient states that she had been taking Tylenol home and this is not helping her pain. When she was seen in the emergency department on the she was prescribed diazepam, she has a ongoing medication regimen which includes BuSpar, cariprazsine, meclizine, lorazepam and thyroid medication. Today her exam is without any focal neuro deficit, weakness, erythema, signs of infection, no signs of cauda equina, without nystagmus, and overall appears non emergent. She is referred back to her primary care provider for physical therapy, outpatient imaging, chronic pain management, and follow-up. Today she had moderate relief of her symptoms with methocarbamol, Percocet, Toradol, lidocaine patch. I gave her a prescription for lidocaine patches, Voltaren gel, ensured that she is on daily pantoprazole, methocarbamol, and breakthrough hydrocodone to last until she can follow-up with her primary care provider. Patient understands her instructions. Multiple etiologies of back pain considered including; Epidural abscess, cauda equina, mass occupying lesion, lumbar fracture, intra-abdominal pathology chronic neuropathic pain and other considered. Patient is appropriate and amenable to discharge home. Vital signs are stable on repeat examination is unremarkable. Patient has been informed of results. Patient has been given strict return to ER precautions for any new or worsening symptoms. Patient understands to follow up closely with outpatient providers as instructed. Patient understands plan and agrees to discharge home. All questions and concerns answered at this time. Discharge Plan Departure Patient Disposition: Home Clinical Impression: Arthralgia, cervical spine, Labyrinthine dysfunction of both ears, Cervical radiculopathy Instructions: Neck Sprain, Chronic Neck Pain, DI for Neck Pain Activity Restrictions/Additional Instructions: *You have been diagnosed with degenerative changes in her cervical spine from C4-C7 with radiculopathy. Please return to Dr. Gangwal for physical therapy for your cervical spine and outpatient imaging like an MRI. Please apply the Voltaren gel to the back of your neck, after period of time for it to dry you may apply the lidocaine patch in the both might work while on this area. You may take the methocarbamol muscle relaxers every 8 hours as needed for muscle spasm and tightness which is likely causing the pain in your arms. Please use heat packs frequently, take ibuprofen and Tylenol with food and water. Please continue taking your pantoprazole daily on an empty stomach. You may take a breakthrough pain pill if you have tried all of the other medications already and are still having breakthrough pain. That is the best use for these pain pills, in combination with other agents. I hope that you start feeling better soon, remember to stay hydrated when taking medications. If you need ongoing pain management please see your primary care provider for this. *What to do: *Please continue to take your regular medications as directed. [ x] New medication prescriptions sent to your pharmacy: [ [facility]] [ ] New medication written as a paper prescription [ ] No new medications given *Please follow up with your primary care provider in 2-3 days, call for an appointment. Let them know you were seen in the Emergency Department and that we ask that you be seen in follow up. We will electronically transmit a record of today's note if your PCP is in our system *If you do not have a primary care provider please contact the [facility] Resource line at [phone]. They will ask some questions about your medical history and help get you set up with a doctor in the community. *Return to Emergency Department if you should have any new, worsening or concerning symptoms, such as [fever greater than 101F, chills, worsening pain, persistent vomiting or other bothersome symptoms] Prescriptions: New methocarbamol 500 mg tablet 500 mg PO TID PRN (Reason: muscle spasm) Qty: 20 0RF hydrocodone-acetaminophen 5-325 mg tablet 1 tab PO BID PRN (Reason: pain) Qty: 10 0RF lidocaine 5 % adhesive patch,medicated 1 patch topical DAILY PRN (Reason: pain) Qty: 15 0RF Rx Instructions: leave on most painful area for up to 12 hrs diclofenac sodium [Voltaren Arthritis Pain] 1 % gel 2 g topical QID PRN (Reason: neck pain) Qty: 100 0RF Rx Instructions: apply to single elbow, wrist or hand; for hand includes palm/fingers/back of hand No Action meclizine 25 mg tablet 25 mg PO QID PRN (Reason: dizziness) Qty: 30 1RF diazepam [Valium] 5 mg tablet 5 mg PO TID PRN (Reason: dizziness) Qty: 15 0RF levothyroxine 75 mcg tablet 1 tab PO DAILY 0RF buspirone 10 mg tablet 2 tab PO BID 0RF cariprazine [Vraylar] 3 mg capsule 1 tab PO QPM 0RF lorazepam 0.5 mg tablet 1 tab PO BID PRN (Reason: Anxiety) 0RF oxycodone 5 mg tablet 5 mg PO Q4-6H PRN (Reason: pain) Qty: 14 0RF Referrals: Ernesto Albrecht [Primary Care Provider] -
[2021-04-27 12:30] VITALS: BP 136/90; PULSE 85; O2SAT 98
[2021-04-27] MEDS: KETOROLAC 30 MG/ML VIAL 15 MG IM (12:36)
[2021-04-27] MEDS: FAMOTIDINE 20 MG TABLET PO (12:37)
[2021-04-27] MEDS: OXYCODONE/ACETAMINOPHEN 5/325 TABLET 1 TAB PO (12:37)
[2021-04-27] MEDS: methocarbamoL 500 MG TABLET PO (12:37)
[2021-04-27] MEDS: LIDOCAINE PATCH 1 EACH ADH..PATCH TOP (12:38)
--- NOTE | 2021-04-27 12:49 | PC.NURSE ---
Patient states that she was experiencing a headache 9/10, and pain in shoulders radiating down both arms. Recent history of c4-c7 vertebrae severe arthritis and herniated discs per patient. Reports being dizzy when standing at work and turning neck to the left, unable to tolerate standing for long periods.
[2021-04-27 13:04] VITALS: BP 136/92; PULSE 89; RESP 18; TEMP 36.9; O2SAT 98
== END 2021-04-27 13:14 | disposition home or self-care (01) ==
PROVIDERS: Emergency Provider Nurse Practitioner Critical Care Medicine; Family Provider Internal Medicine; PCP Internal Medicine
DX: M54.12 Radiculopathy, cervical region (principal); M54.2 Cervicalgia; H83.2X3 Labyrinthine dysfunction, bilateral
CPT/HCPCS: 96372; 99283; A9270; J1885

== ENCOUNTER 2022-02-09 06:19 | Emergency (ER) | payer OTHER, MEDICAID, SELFPAY ==
[2018-01-05 10:58] VITALS: BMI 26.1
[2022-02-09] VITALS (14 sets, daily range): BP systolic 112–138; BP diastolic 68–85; PULSE 67–86; RESP 16–22; TEMP 36.5; O2SAT 98–100; BMI 30.9
--- NOTE | 2022-02-09 07:47 | ED_ITS ---
HPI - General Adult General Chief complaint: Dizziness Stated complaint: DIZZINESS Time Seen by Provider: 02/09/22 07:22 Source: patient Mode of arrival: Wheelchair History of Present Illness HPI narrative: 51-year-old female with a history of vertigo. States the last time this happened she had symptoms for approximately 1 month. She went to physical therapy. She had both meclizine and Valium. Yesterday she was walking around and had a sudden onset room spinning sensation. States she can reproduce it with tilting her head back and somewhat reproducing with tilting her head forward. She is no other associated symptoms to include vision changes, tinnitus, sore throat, sinus congestion, chest pain, palpitations, shortness of breath, numbness or tingling in her arms or legs. No weakness in arms or legs. has not tried anything for her symptoms. Related Data Home Medications Medication Instructions Recorded Confirmed buspirone 10 mg tablet 2 tab PO BID 01/01/18 03/24/18 cariprazine 3 mg capsule 1 tab PO QPM 01/01/18 03/24/18 levothyroxine 75 mcg tablet 1 tab PO DAILY 01/01/18 03/24/18 lorazepam 0.5 mg tablet 1 tab PO BID PRN Anxiety 01/01/18 01/20/18 Previous Rx's Medication Instructions Recorded oxycodone 5 mg tablet 5 mg PO Q4-6H PRN pain #14 tabs 01/05/18 diazepam 5 mg tablet (Valium) 5 mg PO TID PRN dizziness #15 tabs 04/12/21 meclizine 25 mg tablet 25 mg PO QID PRN dizziness #30 tabs 04/12/21 diclofenac sodium 1 % topical gel 2 g topical QID PRN neck pain #100 04/27/21 (Voltaren Arthritis Pain) grams hydrocodone 5 mg-acetaminophen 325 1 tab PO BID PRN pain #10 tabs 04/27/21 mg tablet lidocaine 5 % topical patch 1 patch topical DAILY PRN pain #15 04/27/21 ea methocarbamol 500 mg tablet 500 mg PO TID PRN muscle spasm #20 04/27/21 tabs diazepam 2 mg tablet (Valium) 2 mg PO BID PRN dizziness or 02/09/22 vertigo #7 tabs meclizine 25 mg tablet 25 mg PO BID PRN dizziness #20 tabs 02/09/22 Allergies Allergy/AdvReac Type Severity Reaction Status Date / Time lamotrigine [From LAMICTAL] Allergy Severe swelling Verified 02/09/22 06:28 lips, hands tongue Review of Systems Constitutional Constitutional: Reports system reviewed and no additional complaints, except as documented Eyes Eyes: Reports system reviewed and no additional complaints, except as documented ENT Ears, Nose, Mouth, and Throat: Reports system reviewed and no additional complaints, except as documented Respiratory Respiratory: Reports system reviewed and no additional complaints, except as documented Gastrointestinal Gastrointestinal: Reports system reviewed and no additional complaints, except as documented Musculoskeletal Musculoskeletal: Reports system reviewed and no additional complaints, except as documented Integumentary/Breasts Skin/Breast: Reports system reviewed and no additional complaints, except as documented Neurologic Neurologic: Reports system reviewed and no additional complaints, except as do cumented Hematologic/Lymphatic On Anticoagulants: No Allergic/Immunologic Allergic/Immunologic: Reports system reviewed and no additional complaints, except as documented Patient History Medical History Bipolar 1 disorder Bone spur of foot Diverticulitis Hypothyroid Surgical History H/O: hysterectomy History of bowel resection History of carpal tunnel release History of Ivania fundoplication S/P correction of deviated nasal septum S/P removal of left ovary Family History Grandmother Ovarian cancer Family/Other Diabetes mellitus Social History marital status: household members: spouse occupational status: unemployed Smoking Status: Current every day smoker alcohol intake: never Smoking Status: Current every day smoker alcohol intake frequency: holidays/special occasions only Substance Use Type: does not use Exam Initial Vital Signs Initial Vital Signs: Vital Signs Temperature 97.7 F 02/09/22 06:28 Pulse Rate 84 02/09/22 06:28 Respiratory Rate 18 02/09/22 06:28 Blood Pressure 138/75 02/09/22 06:28 Pulse Oximetry 100 02/09/22 06:28 Oxygen Delivery Method 02/09/22 06:28 Const General: cooperative, comfortable and No ill appearing [facility] Head: normal to inspection and normocephalic Eyes General: Yes appearance normal, both eyes and all related structures Resp Effort & Inspection: normal respiratory effort Auscultation: clear to auscultation bilaterally Cardio Rate: regular rate Skin General: no rashes or lesions noted Neuro General: patient alert, patient awake, patient oriented x3 and moves all extremities Cranial Nerves: CN's II-XI intact bilaterally Cognition: normal cognition Speech: speech normal Motor: muscle tone normal throughout Sensory Exam: no sensory deficits noted Other: Reproduce of symptoms with flexion of the head forward. Somewhat reproducible with extension of the head back. Not reproducible with the [place]-Hallpike maneuver. Extrem General: normal to inspection and capillary refill normal Psych Appearance: grossly normal and well kempt Course Orders Ordered: Discontinued Medications Sodium Chloride (Normal Saline 0.9%) 1,000 mls @ 1,000 mls/hr IV BOLUS ONE Stop: 02/09/22 08:27 Last Infusion: 02/09/22 09:07 Dose: 0 mls/hr Documented By: Admin: 02/09/22 07:57 Dose: 1,000 mls/hr Documented By: CHARY Meclizine HCl (Meclizine Hcl 12.5 Mg Tablet) 25 mg PO NOW ONE Stop: 02/09/22 07:48 Last Admin: 02/09/22 07:57 Dose: 25 mg Documented By: CHARY Vital Signs Vital signs: Vital Signs - 8 hr 02/09/22 10:30 02/09/22 10:30 Pulse Rate 80 Respiratory Rate 17 Blood Pressure 115/77 Pulse Oximetry 98 Medical Decision Making Lab Data Lab results reviewed: Yes I reviewed the patient's lab results. Result diagrams: 02/09/22 07:40 02/09/22 07:40 Labs: Lab Results 02/09/22 02/09/22 Range/Units 07:40 07:40 WBC 7.2 (4.5-11.0) X10^3/uL RBC 5.21 H (4.0-5.2) X10^6/uL Hgb 13.9 (12.0-16.0) g/dL Hct 41.9 (36-46) % MCV 80.5 (80-100) fL MCH 26.7 (26-34) PG MCHC 33.1 (30-36) % RDW 20.4 H (11.6-14.8) % Plt Count 158 (150-400) X10^3/uL Neut % (Auto) 62.5 (50-75) % Lymph % (Auto) 27.7 (25-40) % Page % (Auto) 6.9 (3-14) % Eos % (Auto) 2.2 (2-4) % Baso % (Auto) 0.7 (0-2) % Neut # (Auto) 4500 (0643-6745) /uL Lymph # (Auto) 2000 (9016-0702) /uL Page # (Auto) 500 (0-900) /uL Eos # (Auto) 200 (0-450) /uL Baso # (Auto) 100 (0-100) /uL RBC Morphology Not Reportable Poikilocytosis 1+ H Anisocytosis 2+ H Target Cells 1+ H Sodium 139 (137-145) mmol/L Potassium 4.5 (3.4-5.1) mmol/L Chloride 105 (98-107) mmol/L Carbon Dioxide 27 (22-32) mmol/L BUN 9 (7-17) mg/dL Creatinine 0.71 (0.52-1.04) mg/dL Estimated GFR > 60 (>60) mL/min BUN/Creatinine Ratio 12.7 (6-22) Glucose 85 (70-100) mg/dL Calcium 8.9 (8.4-10.2) mg/dL Urine Dip Bedside Urine Glucose Negative Bedside Urine Bilirubin - Negative Bedside Urine Ketone - Negative Urine Specific [place] 1.000 Bedside Urine Occult Blood - Negative Bedside Urine pH 7.5 Bedside Urine Protein - Negative Bedside Urine Urobilinogen - Negative Bedside Urine Nitrite - Negative Bedside Urine Leukocytes - Negative Esterase Point of care testing: Urine Dip Bedside Urine Glucose Negative Bedside Urine Bilirubin - Negative Bedside Urine Ketone - Negative Urine Specific [place] 1.000 Bedside Urine Occult Blood - Negative Bedside Urine pH 7.5 Bedside Urine Protein - Negative Bedside Urine Urobilinogen - Negative Bedside Urine Nitrite - Negative Bedside Urine Leukocytes - Negative Esterase ECG Data Attestation: I personally reviewed and interpreted this ECG as follows: Interpretation: Sinus rhythm Ventricular rate of 65 Normal axis Normal QRS axis and normal QTC No ST T-wave changes MDM Narrative Medical decision making narrative: Patient reports a vast improvement/resolution of symptoms after medications here in the ER. Her symptoms are reproducible. I suspect peripheral vertigo not central vertigo. We will hold on a head CT for now. She has had vertigo in the past. Was sent home with a prescription for Valium and also meclizine. Instructed her to contact her primary doctor for follow-up. She expressed understanding and agreement. Discharge Plan Departure Patient Disposition: Home Clinical Impression: Vertigo Instructions: DI for Vertigo Activity Restrictions/Additional Instructions: Take all of your medications as directed. contact your primary doctor for a follow-up. Return to the emergency department for any new or worsening symptoms. Prescriptions: New meclizine 25 mg tablet 25 mg PO BID PRN (Reason: dizziness) Qty: 20 0RF diazepam [Valium] 2 mg tablet 2 mg PO BID PRN (Reason: dizziness or vertigo) Qty: 7 0RF No Action meclizine 25 mg tablet 25 mg PO QID PRN (Reason: dizziness) Qty: 30 1RF diazepam [Valium] 5 mg tablet 5 mg PO TID PRN (Reason: dizziness) Qty: 15 0RF methocarbamol 500 mg tablet 500 mg PO TID PRN (Reason: muscle spasm) Qty: 20 0RF hydrocodone-acetaminophen 5-325 mg tablet 1 tab PO BID PRN (Reason: pain) Qty: 10 0RF lidocaine 5 % adhesive patch,medicated 1 patch topical DAILY PRN (Reason: pain) Qty: 15 0RF Rx Instructions: leave on most painful area for up to 12 hrs diclofenac sodium [Voltaren Arthritis Pain] 1 % gel 2 g topical QID PRN (Reason: neck pain) Qty: 100 0RF Rx Instructions: apply to single elbow, wrist or hand; for hand includes palm/fingers/back of hand levothyroxine 75 mcg tablet 1 tab PO DAILY buspirone 10 mg tablet 2 tab PO BID cariprazine [Vraylar] 3 mg capsule 1 tab PO QPM lorazepam 0.5 mg tablet 1 tab PO BID PRN (Reason: Anxiety) oxycodone 5 mg tablet 5 mg PO Q4-6H PRN (Reason: pain) Qty: 14 0RF Referrals: Ernesto Albrecht [Primary Care Provider] - Visit Report Forms: Patient Portal/API
[2022-02-09 07:48] LABS: Add Manual Diff / Slide Review NO; Basophils Absolute Auto 100 /uL (0-100); Basophils Percent Auto 0.7 % (0-2); Eosinophils Absolute Auto 200 /uL (0-450); Eosinophils Percent Auto 2.2 % (2-4); Hematocrit 41.9 % (36-46); Hemoglobin 13.9 g/dL (12.0-16.0); Lymphocytes Absolute Auto 2000 /uL (1100-4500); Lymphocytes Percent Auto 27.7 % (25-40); Mean Corpuscular HGB Conc 33.1 % (30-36); Mean Corpuscular Hemoglobin 26.7 PG (26-34); Mean Corpuscular Volume 80.5 fL (80-100); Monocytes Absolute Auto 500 /uL (0-900); Monocytes Percent Auto 6.9 % (3-14); Neutrophils Absolute Auto 4500 /uL (1500-7000); Neutrophils Percent Auto 62.5 % (50-75); Platelet Count 158 X10^3/uL (150-400); Red Blood Cell Count 5.21 X10^6/uL (4.0-5.2); Red Cell Distribution Width 20.4 % (11.6-14.8); White Blood Cell Count 7.2 X10^3/uL (4.5-11.0)
[2022-02-09] MEDS: SODIUM CHLORIDE 0.9% 1,000 ML 1000 ML IV (07:57)
[2022-02-09] MEDS: MECLIZINE HCL 12.5 MG TABLET 25 MG PO (07:57)
[2022-02-09 07:58] LABS: Anisocytosis 2+; Poikilocytosis 1+; Target Cells 1+
[2022-02-09 08:20] LABS: BUN Creatinine Ratio 12.7 (6-22); Blood Urea Nitrogen 9 mg/dL (7-17); Calcium 8.9 mg/dL (8.4-10.2); Carbon Dioxide 27 mmol/L (22-32); Chloride 105 mmol/L (98-107); Estimated Glomerular Filt Rate > 60 mL/min (>60); Glucose 85 mg/dL (70-100); Sodium 139 mmol/L (137-145)
[2022-02-09 08:42] LABS: Potassium 4.5 mmol/L (3.4-5.1)
[2022-02-09 08:49] LABS: HEMOLYSIS 104 (0-50)
== END 2022-02-09 10:49 | disposition home or self-care (01) ==
PROVIDERS: Emergency Provider Emergency Medicine; Family Provider Internal Medicine; PCP Internal Medicine
DX: R42 Dizziness and giddiness (principal)
CPT/HCPCS: 80048; 81003; 85025; 93005; 93010; 96360; 99284

== ENCOUNTER 2022-04-29 16:29 | Emergency (ER) | payer OTHER, MEDICAID, SELFPAY ==
[2018-01-05 10:58] VITALS: BMI 26.1
[2022-04-29 16:40] VITALS: BP 140/95; PULSE 106; RESP 18; TEMP 36.8; O2SAT 98; BMI 29.2
--- NOTE | 2022-04-29 16:46 | DI.CT.S_ITS ---
PROCEDURE: CT ABDOMEN PELVIS W CON INDICATIONS: severe RLQ pain, N/V, prior gastric bypass, perf TECHNIQUE: After the administration of intravenous contrast, axial sections acquired from the lung bases to the pubic symphysis. Coronal and sagittal reformats were performed. For radiation dose reduction, the following was used: automated exposure control, adjustment of mA and/or kV according to patient size. COMPARISON: [facility], CT, CT ABDOMEN PELVIS WITH CONTRAST, 02/16/2022, 21:56. [facility], CT, CT ABDOMEN PELVIS W CON, 01/01/2018, 20:56. FINDINGS: Lower thorax: The lung bases are clear. Heart size normal. No hiatal hernia. Liver: Normal in size and attenuation. No contour deformity present. Biliary system: No calcified cholelithiasis or pericholecystic inflammation. No intra or extrahepatic bile duct dilatation. Pancreas: Unremarkable without mass or inflammation evident. Spleen: Normal in size and density. Adrenals: Normal morphology and density. Reproductive system: Hysterectomy Urinary system: Normal renal size and attenuation. No renal calculi, hydronephrosis, or solid mass present. Urinary bladder unremarkable. Gastrointestinal system: Prior gastric surgery noted. Multiple diverticula arise from the sigmoid colon without evidence of diverticulitis. Mobile cecum and ileocecal valve in the mid pelvis. There is a focal narrowing in the ascending colon on image 2/56 and with suggestion of wall thickening. No significant inflammatory change. No bowel obstruction Appendix: Appendectomy Peritoneal spaces: No mesenteric or retroperitoneal adenopathy. No free air. No free fluid. Vasculature: The IVC, aorta and iliac vasculature are unremarkable. Abdominal wall: Abdominal wall intact without evidence of ventral or inguinal hernias. Musculoskeletal: Normal bone mineralization. Degenerative disc disease and arthropathy noted in lower lumbar spine. No acute fractures. IMPRESSION: 1. Mild right colon focal luminal narrowing without significant inflammatory change. Consider colonoscopy and when patient symptoms improve. 2. Advanced sigmoid diverticulosis without evidence of diverticulitis Approved by: Yves Jean Baptiste M.D. on 04/29/2022 at 18:02
--- NOTE | 2022-04-29 17:37 | ED.ABDPAIN ---
HPI - Abdominal Pain <James DO Matt - Last Filed: 04/30/22 07:17> General Chief Complaint: Abdominal Pain Stated Complaint: severe rt sided pain Time Seen by Provider: 04/29/22 16:38 Source: patient Mode of arrival: Wheelchair History of Present Illness HPI narrative: 51-year-old female daily smoker with history of bipolar, prior abdominal surgeries including gastric bypass and ex lap for perforated diverticulitis presents with a chief complaint of relatively sudden onset and severe right-sided abdominal pain. She states that it is quite intense and is associated with nausea but no vomiting. She states it is worse when she moves and improves with rest. She denies any radiation of her pain. She denies any change in her bowel habits such as constipation or diarrhea. She has no dysuria, frequency or urgency. Related Data Home Medications Medication Instructions Recorded Confirmed buspirone 10 mg tablet 2 tab PO BID 01/01/18 03/24/18 cariprazine 3 mg capsule 1 tab PO QPM 01/01/18 03/24/18 levothyroxine 75 mcg tablet 1 tab PO DAILY 01/01/18 03/24/18 lorazepam 0.5 mg tablet 1 tab PO BID PRN Anxiety 01/01/18 01/20/18 Previous Rx's Medication Instructions Recorded oxycodone 5 mg tablet 5 mg PO Q4-6H PRN pain #14 tabs 01/05/18 diazepam 5 mg tablet (Valium) 5 mg PO TID PRN dizziness #15 tabs 04/12/21 meclizine 25 mg tablet 25 mg PO QID PRN dizziness #30 tabs 04/12/21 diclofenac sodium 1 % topical gel 2 g topical QID PRN neck pain #100 04/27/21 (Voltaren Arthritis Pain) grams hydrocodone 5 mg-acetaminophen 325 1 tab PO BID PRN pain #10 tabs 04/27/21 mg tablet lidocaine 5 % topical patch 1 patch topical DAILY PRN pain #15 04/27/21 ea methocarbamol 500 mg tablet 500 mg PO TID PRN muscle spasm #20 04/27/21 tabs diazepam 2 mg tablet (Valium) 2 mg PO BID PRN dizziness or 02/09/22 vertigo #7 tabs meclizine 25 mg tablet 25 mg PO BID PRN dizziness #20 tabs 02/09/22 hydrocodone 5 mg-acetaminophen 325 1 tab PO Q6H PRN pain #5 tabs 04/29/22 mg tablet ondansetron 4 mg disintegrating 4 mg PO Q6H PRN nausea and 04/29/22 tablet vomiting #7 tabs Allergies Allergy/AdvReac Type Severity Reaction Status Date / Time lamotrigine [From LAMICTAL] Allergy Severe swelling Verified 02/09/22 06:28 lips, hands tongue Review of Systems <James Gutierrez DO - Last Filed: 04/30/22 07:17> Review of Systems Narrative: GENERAL: See HPI HEENT: Denies sinus pain, ear pain, sore throat, difficulty swallowing, dizziness. RESPIRATORY: Denies dyspnea, cough, wheezing, hemoptysis, sputum. CARDIOVASCULAR: Denies chest pain, palpitations, orthopnea, edema, GASTROINTESTINAL: See H : Denies dysuria, frequency, incontinence, hematuria, urinary retention. MUSCULOSKELETAL: denies weakness, joint pain, or bony pain SKIN: Denies rash, skin lesions, or other NEUROLOGIC: Denies weakness, headache, numbness, change in speech, confusion, seizures, incoordination. PSYCHIATRIC: No concerning psychosocial issues. 12 point review of systems is negative except for those stated above Patient History <James Gutierrez DO - Last Filed: 04/30/22 07:17> Medical History Bipolar 1 disorder Bone spur of foot Diverticulitis Hypothyroid Surgical History H/O: hysterectomy History of bowel resection History of carpal tunnel release History of Ivania fundoplication S/P correction of deviated nasal septum S/P removal of left ovary Family History Grandmother Ovarian cancer Family/Other Diabetes mellitus Social History marital status: household members: spouse occupational status: unemployed Smoking Status: Current every day smoker alcohol intake: never Smoking Status: Current every day smoker alcohol intake frequency: holidays/special occasions only Substance Use Type: does not use Exam <James Gutierrez DO - Last Filed: 04/30/22 07:17> Narrative Exam Narrative: GENERAL: [51] year old patient appears stated age. Well-developed patient, in mild distress. HEAD: Atraumatic. Normocephalic. EYES: Pupils equal round and reactive. Extraocular motions intact. No scleral icterus. No injection or drainage. ENT: Nose without bleeding, purulent drainage. Throat without erythema, tonsillar hypertrophy or exudate. Airway patent. NECK: Trachea midline. Non tender CARDIOVASCULAR: Regular rate and rhythm without murmurs, gallops, or rubs. RESPIRATORY: Clear to auscultation. Breath sounds equal bilaterally. No wheezes, rales, or rhonchi. GASTROINTESTINAL: Abdomen soft, tender with localized voluntary guarding, nondistended. EXTREMITIES: No edema or joint tenderness. BACK: Nontender without deformity or crepitance. No flank tenderness. NEURO: AOx3. SKIN: No rash or erythema of visible areas Initial Vital Signs Initial Vital Signs: Vital Signs Temperature 98.3 F 04/29/22 16:40 Pulse Rate 106 H 04/29/22 16:40 Respiratory Rate 18 04/29/22 16:40 Blood Pressure 140/95 H 04/29/22 16:40 Pulse Oximetry 98 04/29/22 16:40 Oxygen Delivery Method 04/29/22 16:40 <Matthew Alvares DO - Last Filed: 04/30/22 01:47> Initial Vital Signs Initial Vital Signs: Vital Signs Temperature 98.3 F 04/29/22 16:40 Pulse Rate 106 H 04/29/22 16:40 Respiratory Rate 18 04/29/22 16:40 Blood Pressure 140/95 H 04/29/22 16:40 Pulse Oximetry 98 04/29/22 16:40 Oxygen Delivery Method 04/29/22 16:40 Course <James Gutierrez DO - Last Filed: 04/30/22 07:17> Orders Ordered: Discontinued Medications Hydrocodone Bitart/Acetaminophen (Hydrocodone/Acet 5/325 Prepack) 1 bottle MISC SEEINSTR ONE Stop: 04/29/22 20:15 Last Admin: 04/29/22 20:28 Dose: 1 bottle Documented By: REY Hydromorphone HCl (Hydromorphone 0.5 Mg Inj) 0.5 mg IV NOW ONE Stop: 04/29/22 16:47 Last Admin: 04/29/22 17:42 Dose: 0.5 mg Documented By: REY(2) Sodium Chloride (Normal Saline 0.9%) 1,000 mls @ 1,000 mls/hr IV BOLUS ONE Stop: 04/29/22 17:45 Last Infusion: 04/29/22 20:36 Dose: 0 mls/hr Documented By: Admin: 04/29/22 17:41 Dose: 1,000 mls/hr Documented By: REY(2) Ketorolac Tromethamine (Ketorolac 30 Mg/Ml Vial) 15 mg IV NOW ONE Stop: 04/29/22 19:14 Last Admin: 04/29/22 19:44 Dose: 15 mg Documented By: VANE Ondansetron HCl (Ondansetron 4 Mg/2 Ml Inj) 4 mg IV NOW ONE Stop: 04/29/22 16:47 Last Admin: 04/29/22 17:41 Dose: 4 mg Documented By: REY(2) Ondansetron HCl (Ondansetron 4 Mg/2 Ml Inj) 4 mg IV NOW ONE Stop: 04/29/22 16:47 Last Admin: 04/29/22 19:48 Dose: Not Given Documented By: VANE Ondansetron HCl (Ondansetron 4 Mg Odt Prepack) 1 bottle MISC SEEINSTR ONE Stop: 04/29/22 20:15 Last Admin: 04/29/22 20:28 Dose: 1 bottle Documented By: REY Vital Signs Vital signs: Vital Signs - 8 hr 04/29/22 19:01 04/29/22 19:30 04/29/22 20:30 Pulse Rate 91 H 95 H 86 Respiratory Rate 20 20 15 Blood Pressure 130/82 126/83 124/80 Pulse Oximetry 98 97 96 Oxygen Delivery Method Room Air Room Air Room Air <Matthew Alvares DO - Last Filed: 04/30/22 01:47> Orders Ordered: Discontinued Medications Hydrocodone Bitart/Acetaminophen (Hydrocodone/Acet 5/325 Prepack) 1 bottle MISC SEEINSTR ONE Stop: 04/29/22 20:15 Last Admin: 04/29/22 20:28 Dose: 1 bottle Documented By: REY Hydromorphone HCl (Hydromorphone 0.5 Mg Inj) 0.5 mg IV NOW ONE Stop: 04/29/22 16:47 Last Admin: 04/29/22 17:42 Dose: 0.5 mg Documented By: REY(2) Sodium Chloride (Normal Saline 0.9%) 1,000 mls @ 1,000 mls/hr IV BOLUS ONE Stop: 04/29/22 17:45 Last Infusion: 04/29/22 20:36 Dose: 0 mls/hr Documented By: Admin: 04/29/22 17:41 Dose: 1,000 mls/hr Documented By: REY(2) Ketorolac Tromethamine (Ketorolac 30 Mg/Ml Vial) 15 mg IV NOW ONE Stop: 04/29/22 19:14 Last Admin: 04/29/22 19:44 Dose: 15 mg Documented By: VANE Ondansetron HCl (Ondansetron 4 Mg/2 Ml Inj) 4 mg IV NOW ONE Stop: 04/29/22 16:47 Last Admin: 04/29/22 17:41 Dose: 4 mg Documented By: REY(2) Ondansetron HCl (Ondansetron 4 Mg/2 Ml Inj) 4 mg IV NOW ONE Stop: 04/29/22 16:47 Last Admin: 04/29/22 19:48 Dose: Not Given Documented By: VANE Ondansetron HCl (Ondansetron 4 Mg Odt Prepack) 1 bottle MISC SEEINSTR ONE Stop: 04/29/22 20:15 Last Admin: 04/29/22 20:28 Dose: 1 bottle Documented By: REY Vital Signs Vital signs: Vital Signs - 8 hr 04/29/22 19:01 04/29/22 19:30 04/29/22 20:30 Pulse Rate 91 H 95 H 86 Respiratory Rate 20 20 15 Blood Pressure 130/82 126/83 124/80 Pulse Oximetry 98 97 96 Oxygen Delivery Method Room Air Room Air Room Air MDM - Abdominal Pain <James Gutierrez DO - Last Filed: 04/30/22 07:17> Lab Data 04/29/22 17:35 04/29/22 17:35 Labs: Lab Results 04/29/22 04/29/22 04/29/22 Range/Units 17:35 17:35 17:35 WBC 8.8 (4.5-11.0) X10^3/uL RBC 4.90 (4.0-5.2) X10^6/uL Hgb 14.2 (12.0-16.0) g/dL Hct 42.1 (36-46) % MCV 85.9 (80-100) fL MCH 28.9 (26-34) PG MCHC 33.7 (30-36) % RDW 17.8 H (11.6-14.8) % Plt Count 174 (150-400) X10^3/uL Neut % (Auto) 56.0 (50-75) % Lymph % (Auto) 35.0 (25-40) % [place] % (Auto) 5.9 (3-14) % Eos % (Auto) 1.9 L (2-4) % Baso % (Auto) 1.2 (0-2) % Neut # (Auto) 4900 (4908-4115) /uL Lymph # (Auto) 3100 (3504-5513) /uL [place] # (Auto) 500 (0-900) /uL Eos # (Auto) 200 (0-450) /uL Baso # (Auto) 100 (0-100) /uL Sodium 139 (137-145) mmol/L Potassium 4.5 (3.4-5.1) mmol/L Chloride 102 (98-107) mmol/L Carbon Dioxide 27 (22-32) mmol/L BUN 8 (7-17) mg/dL Creatinine 0.77 (0.52-1.04) mg/dL Estimated GFR > 60 (>60) mL/min BUN/Creatinine Ratio 10.4 (6-22) Glucose 76 (70-100) mg/dL Lactate 0.8 (0.7-2.1) mmol/L Calcium 9.1 (8.4-10.2) mg/dL Total Bilirubin 0.3 (0.2-1.3) mg/dL AST 32 (14-36) IU/L ALT 25 (<35) IU/L Alkaline Phosphatase 123 (38-126) U/L Total Protein 7.6 (6.3-8.2) g/dL Albumin 4.2 (3.5-5.0) g/dL Globulin 3.4 (1.7-4.1) g/dL Albumin/Globulin Ratio 1.2 (1.0-2.8) Lipase 132 (23-300) U/L Point of care testing: Urine Dip Bedside Urine Glucose Negative Bedside Urine Bilirubin - Negative Bedside Urine Ketone - Negative Urine Specific [place] 1.020 Bedside Urine Occult Blood - Negative Bedside Urine pH 6.0 Bedside Urine Protein - Negative Bedside Urine Urobilinogen - Negative Bedside Urine Nitrite - Negative Bedside Urine Leukocytes - Negative Esterase MDM Narrative Medical decision making narrative: CC: 51-year-old female with multiple prior surgeries presents with sudden-onset right-sided abdominal pain Complicating co-morbidities: Multiple prior surgeries Data collected from: Patient Medical records reviewed: Prior records in our EMR reviewed Differential considered, but not limited to: Bowel obstruction, colitis, appendicitis versus other Exam documented above, pertinent findings include: No tachycardia or increased work of breathing, abdomen soft but localized tenderness Lab Test results independently reviewed as above. Pertinent findings: No leukocytosis or left shift Independently reviewed EKG as above Imaging studies independently reviewed: Treatments: Saline, Toradol, Dilaudid Re-evaluations: Significant improvement after Toradol, pain at this point well controlled 1900 -patient still having a bit of pain, discuss discharge now or administration of Toradol. She would prefer another medication, Toradol ordered, likely discharge within the hour, patient signed out to Dr. Alvares for final disposition Dr alvares: Received turned over. Reviewed patient's history and physical exam and performed my own independent evaluation. Reviewed patient's workup up to this point. CT scan was unremarkable. After Toradol patient reports improvement of symptoms to the point where she feels like she is okay with going home. There is no indication for antibiotics. No indication for surgical consultation. She was given return precautions. She expressed understanding and agreement. <Matthew Alvares, DO - Last Filed: 04/30/22 01:47> Lab Data Labs: Lab Results 04/29/22 04/29/22 04/29/22 Range/Units 17:35 17:35 17:35 WBC 8.8 (4.5-11.0) X10^3/uL RBC 4.90 (4.0-5.2) X10^6/uL Hgb 14.2 (12.0-16.0) g/dL Hct 42.1 (36-46) % MCV 85.9 (80-100) fL MCH 28.9 (26-34) PG MCHC 33.7 (30-36) % RDW 17.8 H (11.6-14.8) % Plt Count 174 (150-400) X10^3/uL Neut % (Auto) 56.0 (50-75) % Lymph % (Auto) 35.0 (25-40) % [place] % (Auto) 5.9 (3-14) % Eos % (Auto) 1.9 L (2-4) % Baso % (Auto) 1.2 (0-2) % Neut # (Auto) 4900 (2857-2223) /uL Lymph # (Auto) 3100 (0506-0504) /uL [place] # (Auto) 500 (0-900) /uL Eos # (Auto) 200 (0-450) /uL Baso # (Auto) 100 (0-100) /uL Sodium 139 (137-145) mmol/L Potassium 4.5 (3.4-5.1) mmol/L Chloride 102 (98-107) mmol/L Carbon Dioxide 27 (22-32) mmol/L BUN 8 (7-17) mg/dL Creatinine 0.77 (0.52-1.04) mg/dL Estimated GFR > 60 (>60) mL/min BUN/Creatinine Ratio 10.4 (6-22) Glucose 76 (70-100) mg/dL Lactate 0.8 (0.7-2.1) mmol/L Calcium 9.1 (8.4-10.2) mg/dL Total Bilirubin 0.3 (0.2-1.3) mg/dL AST 32 (14-36) IU/L ALT 25 (<35) IU/L Alkaline Phosphatase 123 (38-126) U/L Total Protein 7.6 (6.3-8.2) g/dL Albumin 4.2 (3.5-5.0) g/dL Globulin 3.4 (1.7-4.1) g/dL Albumin/Globulin Ratio 1.2 (1.0-2.8) Lipase 132 (23-300) U/L Point of care testing: Urine Dip Bedside Urine Glucose Negative Bedside Urine Bilirubin - Negative Bedside Urine Ketone - Negative Urine Specific [place] 1.020 Bedside Urine Occult Blood - Negative Bedside Urine pH 6.0 Bedside Urine Protein - Negative Bedside Urine Urobilinogen - Negative Bedside Urine Nitrite - Negative Bedside Urine Leukocytes - Negative Esterase MDM Narrative Medical decision making narrative: CC: 51-year-old female with multiple prior surgeries presents with sudden-onset right-sided abdominal pain Complicating co-morbidities: Multiple prior surgeries Data collected from: Patient Medical records reviewed: Prior records in our EMR reviewed Differential considered, but not limited to: Bowel obstruction, colitis, appendicitis versus other Exam documented above, pertinent findings include: No tachycardia or increased work of breathing, abdomen soft but localized tenderness Lab Test results independently reviewed as above. Pertinent findings: No leukocytosis or left shift Independently reviewed EKG as above Imaging studies independently reviewed: Scores Used: MIPS Elements: Consultations: Treatments: Re-evaluations: Discussion: Disposition: see below, along with detailed discharge instructions that have been reviewed with patient as well as indications for ED re-evaluation and additional outpatient follow up Dr alvares: Received turned over. Reviewed patient's history and physical exam and performed my own independent evaluation. Reviewed patient's workup up to this point. CT scan was unremarkable. After Toradol patient reports improvement of symptoms to the point where she feels like she is okay with going home. There is no indication for antibiotics. No indication for surgical consultation. She was given return precautions. She expressed understanding and agreement. Discharge Plan Departure Patient Disposition: Home Clinical Impression: Abdominal pain Instructions: DI for Abdominal Pain-Adult Activity Restrictions/Additional Instructions: I do recommend that you continue to take all of your medications as directed. I also recommend a bland diet the next couple days and you can advance it as tolerated. Contact your primary doctor for a follow-up. Return to the emergency department for any new or worsening symptoms. Prescriptions: New ondansetron 4 mg tablet,disintegrating 4 mg PO Q6H PRN (Reason: nausea and vomiting) Qty: 7 0RF hydrocodone-acetaminophen 5-325 mg tablet 1 tab PO Q6H PRN (Reason: pain) Qty: 5 0RF No Action meclizine 25 mg tablet 25 mg PO QID PRN (Reason: dizziness) Qty: 30 1RF diazepam [Valium] 5 mg tablet 5 mg PO TID PRN (Reason: dizziness) Qty: 15 0RF methocarbamol 500 mg tablet 500 mg PO TID PRN (Reason: muscle spasm) Qty: 20 0RF hydrocodone-acetaminophen 5-325 mg tablet 1 tab PO BID PRN (Reason: pain) Qty: 10 0RF lidocaine 5 % adhesive patch,medicated 1 patch topical DAILY PRN (Reason: pain) Qty: 15 0RF Rx Instructions: leave on most painful area for up to 12 hrs diclofenac sodium [Voltaren Arthritis Pain] 1 % gel 2 g topical QID PRN (Reason: neck pain) Qty: 100 0RF Rx Instructions: apply to single elbow, wrist or hand; for hand includes palm/fingers/back of hand levothyroxine 75 mcg tablet 1 tab PO DAILY buspirone 10 mg tablet 2 tab PO BID cariprazine [Vraylar] 3 mg capsule 1 tab PO QPM lorazepam 0.5 mg tablet 1 tab PO BID PRN (Reason: Anxiety) oxycodone 5 mg tablet 5 mg PO Q4-6H PRN (Reason: pain) Qty: 14 0RF meclizine 25 mg tablet 25 mg PO BID PRN (Reason: dizziness) Qty: 20 0RF diazepam [Valium] 2 mg tablet 2 mg PO BID PRN (Reason: dizziness or vertigo) Qty: 7 0RF Referrals: Ernesto Albrecht [Primary Care Provider] - Stand Alone Forms: Patient Portal/API
[2022-04-29] MEDS: SODIUM CHLORIDE 0.9% 1,000 ML 1000 ML IV (17:41)
[2022-04-29] MEDS: ONDANSETRON 4 MG/2 ML INJ IV (17:41)
[2022-04-29] MEDS: HYDROMORPHONE 0.5 MG INJ IV (17:42)
[2022-04-29 17:45] LABS: Add Manual Diff / Slide Review NO; Basophils Absolute Auto 100 /uL (0-100); Basophils Percent Auto 1.2 % (0-2); Eosinophils Absolute Auto 200 /uL (0-450); Eosinophils Percent Auto 1.9 % (2-4); Hematocrit 42.1 % (36-46); Hemoglobin 14.2 g/dL (12.0-16.0); Lymphocytes Absolute Auto 3100 /uL (1100-4500); Mean Corpuscular HGB Conc 33.7 % (30-36); Mean Corpuscular Hemoglobin 28.9 PG (26-34); Mean Corpuscular Volume 85.9 fL (80-100); Monocytes Absolute Auto 500 /uL (0-900); Monocytes Percent Auto 5.9 % (3-14); Neutrophils Absolute Auto 4900 /uL (1500-7000); Platelet Count 174 X10^3/uL (150-400); Red Cell Distribution Width 17.8 % (11.6-14.8); White Blood Cell Count 8.8 X10^3/uL (4.5-11.0)
[2022-04-29 18:20] LABS: Alanine Aminotransferase 25 IU/L (<35); Albumin 4.2 g/dL (3.5-5.0); Albumin Globulin Ratio 1.2 (1.0-2.8); Alkaline Phosphatase 123 U/L (38-126); Aspartate Aminotransferase 32 IU/L (14-36); BUN Creatinine Ratio 10.4 (6-22); Bilirubin Total 0.3 mg/dL (0.2-1.3); Blood Urea Nitrogen 8 mg/dL (7-17); Calcium 9.1 mg/dL (8.4-10.2); Carbon Dioxide 27 mmol/L (22-32); Chloride 102 mmol/L (98-107); Estimated Glomerular Filt Rate > 60 mL/min (>60); Globulin 3.4 g/dL (1.7-4.1); Glucose 76 mg/dL (70-100); HEMOLYSIS < 15 (0-50); Lipase 132 U/L (23-300); Potassium 4.5 mmol/L (3.4-5.1); Sodium 139 mmol/L (137-145); Total Protein 7.6 g/dL (6.3-8.2)
[2022-04-29 18:21] LABS: Lactate (Lactic Acid) 0.8 mmol/L (0.7-2.1)
[2022-04-29 19:01] VITALS: BP 130/82; PULSE 91; RESP 20; O2SAT 98
[2022-04-29 19:30] VITALS: BP 126/83; PULSE 95; RESP 20; O2SAT 97
[2022-04-29] MEDS: KETOROLAC 30 MG/ML VIAL 15 MG IV (19:44)
[2022-04-29] MEDS: ONDANSETRON 4 MG ODT PREPACK 1 BOTTLE MISC (20:28)
[2022-04-29] MEDS: HYDROCODONE/ACET 5/325 PREPACK 1 BOTTLE MISC (20:28)
[2022-04-29 20:30] VITALS: BP 124/80; PULSE 86; RESP 15; O2SAT 96
== END 2022-04-29 20:37 | disposition home or self-care (01) ==
PROVIDERS: Emergency Medicine; Emergency Provider Emergency Medicine; Family Provider Internal Medicine; PCP Internal Medicine
DX: R10.9 Unspecified abdominal pain (principal)
CPT/HCPCS: 36415; 74177; 80053; 81003; 83605; 83690; 85025; 96361; 96374; 96375; 96376; 99284; J1170; J1885; J2405; Q9967

== ENCOUNTER 2022-05-23 16:04 | Emergency (ER) | payer OTHER, MEDICAID, SELFPAY ==
[2018-01-05 10:58] VITALS: BMI 26.1
[2022-05-23 16:08] VITALS: BP 137/100; PULSE 113; RESP 16; TEMP 36.1; O2SAT 98; BMI 31.5
--- NOTE | 2022-05-23 16:52 | ED.NECK ---
HPI - Neck Pain/Injury General Chief Complaint: Neck Pain/Injury Stated Complaint: neck pain/meds arent working x21 days Time Seen by Provider: 05/23/22 16:44 Mode of arrival: Family Vehicle History of Present Illness HPI Narrative: 52-year-old female daily smoker with history of bipolar and known cervical degenerative joint disease presents with a chief complaint of persistent pain in her neck that is not being helped by her current medications. She states that she is been having neck problems and pain with range of motion and even some tingling over her left shoulder for some time. She denies any specific traumatic injury. She has no fever or chills and denies use of blood thinners. She denies any weakness of her upper extremities. She states that she is seen her primary care provider and had an x-ray performed which confirmed these changes. She had been placed on hydrocodone and baclofen and it is providing little relief. She states she has not been on any steroids or gabapentin. She states that there has been talk about the possibility of an MRI but she needs to do a few rounds of physical therapy 1st. She states her symptoms are not worsening but they are not improving hence her visit to see us. She is otherwise fine unwell in free of any other complaints such as chest pain or shortness of breath, nausea, vomiting or diarrhea. Related Data Home Medications Medication Instructions Recorded Confirmed buspirone 10 mg tablet 2 tab PO BID 01/01/18 03/24/18 cariprazine 3 mg capsule 1 tab PO QPM 01/01/18 03/24/18 levothyroxine 75 mcg tablet 1 tab PO DAILY 01/01/18 03/24/18 lorazepam 0.5 mg tablet 1 tab PO BID PRN Anxiety 01/01/18 01/20/18 Previous Rx's Medication Instructions Recorded oxycodone 5 mg tablet 5 mg PO Q4-6H PRN pain #14 tabs 01/05/18 diazepam 5 mg tablet (Valium) 5 mg PO TID PRN dizziness #15 tabs 04/12/21 meclizine 25 mg tablet 25 mg PO QID PRN dizziness #30 tabs 04/12/21 diclofenac sodium 1 % topical gel 2 g topical QID PRN neck pain #100 04/27/21 (Voltaren Arthritis Pain) grams hydrocodone 5 mg-acetaminophen 325 1 tab PO BID PRN pain #10 tabs 04/27/21 mg tablet lidocaine 5 % topical patch 1 patch topical DAILY PRN pain #15 04/27/21 ea methocarbamol 500 mg tablet 500 mg PO TID PRN muscle spasm #20 04/27/21 tabs diazepam 2 mg tablet (Valium) 2 mg PO BID PRN dizziness or 02/09/22 vertigo #7 tabs meclizine 25 mg tablet 25 mg PO BID PRN dizziness #20 tabs 02/09/22 hydrocodone 5 mg-acetaminophen 325 1 tab PO Q6H PRN pain #5 tabs 04/29/22 mg tablet ondansetron 4 mg disintegrating 4 mg PO Q6H PRN nausea and 04/29/22 tablet vomiting #7 tabs gabapentin 300 mg capsule 300 mg PO BEDTIME #14 caps 05/23/22 ketorolac 10 mg tablet 10 mg PO Q6H PRN pain #14 tabs 05/23/22 methylprednisolone 4 mg tablets in See Rx Instructions PO .COMPLEX 05/23/22 a dose pack (Medrol (Lewis)) #21 ea Allergies Allergy/AdvReac Type Severity Reaction Status Date / Time lamotrigine [From LAMICTAL] Allergy Severe swelling Verified 05/23/22 16:12 lips, hands tongue Review of Systems Review of Systems Narrative: GENERAL: Denies chills, fatigue, malaise, fever, sweats. HEENT: Denies sinus pain, ear pain, sore throat, difficulty swallowing, dizziness. RESPIRATORY: Denies dyspnea, cough, wheezing, hemoptysis, sputum. CARDIOVASCULAR: Denies chest pain, palpitations, orthopnea, edema, GASTROINTESTINAL: Denies nausea, vomiting, abdominal pain, diarrhea, constipation, melena. : Denies dysuria, frequency, incontinence, hematuria, urinary retention. MUSCULOSKELETAL: See HPI SKIN: Denies rash, skin lesions, or other NEUROLOGIC: See HPI PSYCHIATRIC: No concerning psychosocial issues. 12 point review of systems is negative except for those stated above Patient History Medical History Bipolar 1 disorder Bone spur of foot Diverticulitis Hypothyroid Surgical History H/O: hysterectomy History of bowel resection History of carpal tunnel release History of Ivania fundoplication S/P correction of deviated nasal septum S/P removal of left ovary Family History Grandmother Ovarian cancer Family/Other Diabetes mellitus Social History marital status: household members: spouse occupational status: unemployed Smoking Status: Current every day smoker alcohol intake: never Smoking Status: Current every day smoker alcohol intake frequency: holidays/special occasions only Substance Use Type: does not use Exam Narrative Exam Narrative: GENERAL: [52] year old patient appears stated age. Well-developed patient, in mild distress. HEAD: Atraumatic. Normocephalic. EYES: Pupils equal round and reactive. Extraocular motions intact. No scleral icterus. No injection or drainage. ENT: Nose without bleeding, purulent drainage. Throat without erythema, tonsillar hypertrophy or exudate. Airway patent. NECK: Trachea midline. Non tender, some increased pain with axial loading including slight increase in the numbness over her shoulder. As stated above there is no measurable weakness with either upper extremity in all measurable benítez. CARDIOVASCULAR: Regular rate and rhythm without murmurs, gallops, or rubs. RESPIRATORY: Clear to auscultation. Breath sounds equal bilaterally. No wheezes, rales, or rhonchi. GASTROINTESTINAL: Abdomen soft, non-tender, nondistended. EXTREMITIES: No edema or joint tenderness. BACK: Nontender without deformity or crepitance. No flank tenderness. NEURO: AOx3. SKIN: No rash or erythema of visible areas Initial Vital Signs Initial Vital Signs: Vital Signs Temperature 97 F L 05/23/22 16:08 Pulse Rate 113 H 05/23/22 16:08 Respiratory Rate 16 05/23/22 16:08 Blood Pressure 137/100 H 05/23/22 16:08 Pulse Oximetry 98 05/23/22 16:08 Oxygen Delivery Method Room Air 05/23/22 16:08 Course Orders Ordered: Discontinued Medications Gabapentin (Gabapentin 300 Mg Capsule) 300 mg PO NOW ONE Stop: 05/23/22 17:13 Last Admin: 05/23/22 17:22 Dose: 300 mg Documented By: SHANEKA Ketorolac Tromethamine (Ketorolac 30 Mg/Ml Vial) 30 mg IM NOW ONE Stop: 05/23/22 17:13 Last Admin: 05/23/22 17:22 Dose: 30 mg Documented By: SHANEKA Prednisone (Prednisone 20 Mg Tablet) 40 mg PO NOW ONE Stop: 05/23/22 17:13 Last Admin: 05/23/22 17:22 Dose: 40 mg Documented By: SHANEKA Vital Signs Vital signs: Vital Signs - 8 hr 05/23/22 16:08 Temperature 97 F L Pulse Rate 113 H Respiratory Rate 16 Blood Pressure 137/100 H Pulse Oximetry 98 Oxygen Delivery Method Room Air MDM - Neck Pain/Injury MDM Narrative Medical decision making narrative: [52] year old patient presents with ongoing neck pain in the absence of injury, trauma, blood thinners, fever or weakness Multiple etiologies for patient's symptoms considered including, but not limited to: Cervical radiculopathy, abscess, hematoma versus other [] Prior Charts reviewed in our EMR Primary Historian: patient Patient's history and physical are reassuring, there are no red flag findings to suggest a neurosurgical emergency, she has no measurable weakness and minimal if any paresthesias. She is not yet been on steroids or gabapentin. These therapies are started today, return precautions discussed, importance of close follow-up reiterated Patient's symptoms improved over duration of stay with above-stated therapies. Findings and discharge diagnosis discussed with patient/family followed by verbalization of understanding Return precautions discussed with patient/family whom verbalize understanding of diagnosis and plan Discharge Plan Departure Patient Disposition: Home Clinical Impression: Cervical radiculopathy Instructions: DI for Neck Pain Activity Restrictions/Additional Instructions: *You have been diagnosed with [cervical radiculopathy. As we discussed your history and physical exam are reassuring and there is no evidence of a neurosurgical emergency. It would seem that there are some medications that have yet to be used for your discomfort that are likely to be very helpful.] *What to do: *Please continue to take your regular medications as directed. [x ] New medication prescriptions sent to your pharmacy: [ [facility]] [ ] New medication written as a paper prescription [ ] No new medications given *Please follow up with your primary care provider in 2-3 days, call for an appointment. Let them know you were seen in the Emergency Department and that we ask that you be seen in follow up. We will electronically transmit a record of today's note if your PCP is in our system *As discussed, I have included contact info for both Dr. Wan and Dr. Tan, both of whom are quite skilled in treatment of neck and back pain *Return to Emergency Department if you should have any new, worsening or concerning symptoms, such as [fever greater than 101 F, shaking chills, worsening pain, persistent vomiting or other bothersome symptoms] Prescriptions: New ketorolac 10 mg tablet 10 mg PO Q6H PRN (Reason: pain) Qty: 14 0RF gabapentin 300 mg capsule 300 mg PO BEDTIME Qty: 14 0RF methylprednisolone [Medrol (Lewis)] 4 mg tablets,dose pack See Rx Instructions .ROUTE .COMPLEX Qty: 21 0RF Rx Instructions: orally per package directions No Action meclizine 25 mg tablet 25 mg PO QID PRN (Reason: dizziness) Qty: 30 1RF diazepam [Valium] 5 mg tablet 5 mg PO TID PRN (Reason: dizziness) Qty: 15 0RF methocarbamol 500 mg tablet 500 mg PO TID PRN (Reason: muscle spasm) Qty: 20 0RF hydrocodone-acetaminophen 5-325 mg tablet 1 tab PO BID PRN (Reason: pain) Qty: 10 0RF lidocaine 5 % adhesive patch,medicated 1 patch topical DAILY PRN (Reason: pain) Qty: 15 0RF Rx Instructions: leave on most painful area for up to 12 hrs diclofenac sodium [Voltaren Arthritis Pain] 1 % gel 2 g topical QID PRN (Reason: neck pain) Qty: 100 0RF Rx Instructions: apply to single elbow, wrist or hand; for hand includes palm/fingers/back of hand ondansetron 4 mg tablet,disintegrating 4 mg PO Q6H PRN (Reason: nausea and vomiting) Qty: 7 0RF hydrocodone-acetaminophen 5-325 mg tablet 1 tab PO Q6H PRN (Reason: pain) Qty: 5 0RF levothyroxine 75 mcg tablet 1 tab PO DAILY buspirone 10 mg tablet 2 tab PO BID cariprazine [Vraylar] 3 mg capsule 1 tab PO QPM lorazepam 0.5 mg tablet 1 tab PO BID PRN (Reason: Anxiety) oxycodone 5 mg tablet 5 mg PO Q4-6H PRN (Reason: pain) Qty: 14 0RF meclizine 25 mg tablet 25 mg PO BID PRN (Reason: dizziness) Qty: 20 0RF diazepam [Valium] 2 mg tablet 2 mg PO BID PRN (Reason: dizziness or vertigo) Qty: 7 0RF Referrals: Kel Wan DO [Physician] - Ernesto Albrecht [Primary Care Provider] - Jv Tan MD [Physician] - Stand Alone Forms: Patient Portal/API
[2022-05-23] MEDS: KETOROLAC 30 MG/ML VIAL IM (17:22)
[2022-05-23] MEDS: predniSONE 20 MG TABLET 40 MG PO (17:22)
[2022-05-23] MEDS: GABAPENTIN 300 MG CAPSULE PO (17:22)
[2022-05-23 17:48] VITALS: BP 140/80; PULSE 68; RESP 16; O2SAT 99
== END 2022-05-23 17:49 | disposition home or self-care (01) ==
PROVIDERS: Emergency Provider Emergency Medicine; Family Provider Internal Medicine; PCP Internal Medicine
DX: M54.12 Radiculopathy, cervical region (principal)
CPT/HCPCS: 96372; 99283; J1885

== ENCOUNTER 2022-05-30 09:23 | Emergency (ER) | payer OTHER, MEDICAID, SELFPAY ==
[2018-01-05 10:58] VITALS: BMI 26.1
[2022-05-30] VITALS (12 sets, daily range): BP systolic 129–148; BP diastolic 86–95; PULSE 82–104; RESP 6–25; TEMP 36.6; O2SAT 96–99; BMI 31.4
--- NOTE | 2022-05-30 09:36 | ED_ITS ---
HPI - Abdominal Pain General Chief Complaint: Abdominal Pain Stated Complaint: possible blockage in intestine, per pt Time Seen by Provider: 05/30/22 09:36 Source: patient Mode of arrival: Ambulatory History of Present Illness HPI narrative: Patient is a 52-year-old female with history of acid reflux Ivania procedure x2, she also had a gastric sleeve. She presents with a vomiting off and on for about a week. She reports that she vomits in her sleep as well as awake. She has some minimal epigastric pain she is having some bowel movements but she reports some being constipated. She saw will dizzy sometimes but no chest pain or palpitation she is not passed out. She denies any fever or chills. She has some ongoing neck issues it appears that she sees pain management for that. Related Data Home Medications Medication Instructions Recorded Confirmed cariprazine 3 mg capsule 1 tab PO QPM 01/01/18 05/26/22 baclofen 20 mg tablet 20 mg PO PRN 05/26/22 05/26/22 buspirone 30 mg tablet 30 mg PO BID 05/26/22 05/26/22 levothyroxine 88 mcg tablet 88 mcg PO DAILY 05/26/22 05/26/22 Previous Rx's Medication Instructions Recorded methylprednisolone 4 mg tablets in See Rx Instructions PO .COMPLEX 05/23/22 a dose pack (Medrol (Lewis)) #21 ea meloxicam 7.5 mg tablet 7.5 mg PO DAILY #30 tabs 05/28/22 ondansetron 4 mg disintegrating 4 mg PO Q8H PRN nausea and 05/30/22 tablet vomiting #10 tabs Allergies Allergy/AdvReac Type Severity Reaction Status Date / Time lamotrigine [From LAMICTAL] Allergy Severe swelling Verified 05/23/22 16:12 lips, hands tongue Review of Systems Review of Systems ROS Unobtainable: All systems reviewed & are unremarkable except as noted in HPI and below Patient History Medical History Ataxia Bipolar 1 disorder Bone spur of foot Cervicalgia Diverticulitis Hypothyroid Surgical History H/O: hysterectomy History of bowel resection History of carpal tunnel release History of Ivania fundoplication S/P correction of deviated nasal septum S/P removal of left ovary Family History Grandmother Ovarian cancer Family/Other Diabetes mellitus Social History marital status: household members: spouse occupational status: unemployed Smoking Status: Current every day smoker alcohol intake: never Smoking Status: Current every day smoker alcohol intake frequency: holidays/special occasions only Substance Use Type: does not use Exam Initial Vital Signs Initial Vital Signs: Vital Signs Temperature 97.9 F 05/30/22 09:25 Pulse Rate 99 H 05/30/22 09:25 Respiratory Rate 20 05/30/22 09:25 Blood Pressure 146/90 H 05/30/22 09:25 Pulse Oximetry 99 05/30/22 09:25 Oxygen Delivery Method Room Air 05/30/22 09:25 GENERAL: Alert pleasant 52-year-old female appears in no acute distress HEENT: Head atraumatic,EOMI, pupils reactive, face symmetric, [moist] mucous membranes CARDIOVASCULAR: Regular rate and rhythm without murmurs, rubs or gallops. RESPIRATORY: Breath sounds equal bilaterally, no wheezes rales or rhonchi. ABDOMEN: Soft, soft no distention, normal bowel sounds minimal epigastric pain negative Lopez sign no flank EXTREMITIES: Normal range of motion, no clubbing or edema. Neurovascularly intact NEUROLOGICAL: Alert and oriented x4. SKIN: Warm, dry, no laceration, no petechiae, no rashes or lesions. Course Orders Ordered: ED Orders 05/30/22 09:37 EKG-12 Lead Stat 05/30/22 10:23 Complete Blood Count AUTO DIFF Stat Comprehensive Metabolic Panel Stat Lipase Stat 05/30/22 10:54 Urine Culture Stat Urine Microscopic Stat 05/30/22 11:26 CT abdomen pelvis wo con Stat Discontinued Medications Hydromorphone HCl (Hydromorphone 1 Mg Inj) 1 mg IM NOW ONE Stop: 05/30/22 11:27 Last Admin: 05/30/22 11:35 Dose: 1 mg Documented By: NR Sodium Chloride (Normal Saline 0.9%) 1,000 mls @ 1,000 mls/hr IV BOLUS ONE Stop: 05/30/22 10:36 Last Admin: 05/30/22 11:28 Dose: Not Given Documented By: NR Ondansetron HCl (Ondansetron 4 Mg Odt) 4 mg PO NOW PRN PRN Reason: Nausea And Vomiting Last Admin: 05/30/22 11:36 Dose: 4 mg Documented By: YVETTE Ondansetron HCl (Ondansetron 4 Mg/2 Ml Inj) 4 mg IV NOW PRN PRN Reason: Nausea And Vomiting Ondansetron HCl (Ondansetron 4 Mg/2 Ml Inj) 4 mg IV NOW ONE Stop: 05/30/22 09:44 Last Admin: 05/30/22 11:28 Dose: Not Given Documented By: NR Pantoprazole Sodium (Pantoprazole 40 Mg Vial) 40 mg IV NOW ONE Stop: 05/30/22 09:44 Last Admin: 05/30/22 11:28 Dose: Not Given Documented By: NR Vital Signs Vital signs: Vital Signs - 8 hr 05/30/22 09:25 05/30/22 09:30 05/30/22 09:33 Temperature 97.9 F Pulse Rate 99 H 104 H Respiratory Rate 20 Blood Pressure 146/90 H 129/95 H Pulse Oximetry 99 99 Oxygen Delivery Method Room Air 05/30/22 09:33 05/30/22 10:00 05/30/22 10:30 Temperature Pulse Rate 97 H 91 H 87 Respiratory Rate 18 20 17 Blood Pressure Pulse Oximetry 99 98 97 Oxygen Delivery Method Room Air 05/30/22 11:00 05/30/22 11:30 05/30/22 12:00 Temperature Pulse Rate 87 82 Respiratory Rate 16 15 Blood Pressure 141/88 H Pulse Oximetry 99 99 Oxygen Delivery Method Room Air 05/30/22 12:00 05/30/22 12:32 05/30/22 12:34 Temperature Pulse Rate 87 101 H Respiratory Rate 13 25 H Blood Pressure 142/89 H Pulse Oximetry 98 Oxygen Delivery Method Room Air 05/30/22 12:34 05/30/22 13:00 05/30/22 13:30 Temperature Pulse Rate 92 H 88 Respiratory Rate 6 L 15 Blood Pressure 148/86 H Pulse Oximetry 97 99 Oxygen Delivery Method 05/30/22 13:30 Temperature Pulse Rate 92 H Respiratory Rate Blood Pressure Pulse Oximetry 96 Oxygen Delivery Method MDM - Abdominal Pain Lab Data 05/30/22 10:23 05/30/22 10:23 Labs: Lab Results 05/30/22 05/30/2223 Range/Units 10:23 10:23 10:54 WBC 9.7 (4.5-11.0) X10^3/uL RBC 4.60 (4.0-5.2) X10^6/uL Hgb 13.3 (12.0-16.0) g/dL Hct 40.3 (36-46) % MCV 87.7 (80-100) fL MCH 29.0 (26-34) PG MCHC 33.1 (30-36) % RDW 16.1 H (11.6-14.8) % Plt Count 166 (150-400) X10^3/uL Neut % (Auto) 62.0 (50-75) % Lymph % (Auto) 24.9 L (25-40) % Rogers % (Auto) 10.4 (3-14) % Eos % (Auto) 1.7 L (2-4) % Baso % (Auto) 1.0 (0-2) % Neut # (Auto) 6000 (7316-9221) /uL Lymph # (Auto) 2400 (6558-0279) /uL Rogers # (Auto) 1000 H (0-900) /uL Eos # (Auto) 200 (0-450) /uL Baso # (Auto) 100 (0-100) /uL Sodium 139 (137-145) mmol/L Potassium 4.5 (3.4-5.1) mmol/L Chloride 103 (98-107) mmol/L Carbon Dioxide 28 (22-32) mmol/L BUN 13 (7-17) mg/dL Creatinine 0.66 (0.52-1.04) mg/dL Estimated GFR > 60 (>60) mL/min BUN/Creatinine Ratio 19.7 (6-22) Glucose 91 (70-100) mg/dL Calcium 9.2 (8.4-10.2) mg/dL Total Bilirubin 0.4 (0.2-1.3) mg/dL AST 27 (14-36) IU/L ALT 25 (<35) IU/L Alkaline Phosphatase 114 (38-126) U/L Total Protein 6.8 (6.3-8.2) g/dL Albumin 3.9 (3.5-5.0) g/dL Globulin 2.9 (1.7-4.1) g/dL Albumin/Globulin Ratio 1.3 (1.0-2.8) Lipase 129 (23-300) U/L Urine RBC 0-1/hpf (0-5/HPF) Urine WBC None seen (0-5/HPF) Ur Squamous Epith Cells 1-5 /hpf (0-5/HPF) Amorphous Sediment 2+ Urine Bacteria Many (>30) H (None) Ur Culture Indicated? Specimen cultured Point of care testing: Urine Dip Bedside Urine Glucose Negative Bedside Urine Bilirubin - Negative Bedside Urine Ketone - Negative Urine Specific Omer 1.015 Bedside Urine Occult Blood +/- Bedside Urine pH 7.5 Bedside Urine Protein - Negative Bedside Urine Urobilinogen - Negative Bedside Urine Nitrite - Negative Bedside Urine Leukocytes - Negative Esterase Imaging Data CT scan - abdomen/pelvis: Radiologist's Impression: PROCEDURE:? CT ABDOMEN PELVIS WO CON ? INDICATIONS:? pain with vomiting hx gastric sleeve ? TECHNIQUE:? Noncontrast 5 mm thick sections acquired from the diaphragms to the symphysis.? 5 mm coronal and sagittal reformats were then performed.? For radiation dose reduction, the following was used:? automated exposure control, adjustment of mA and/or kV according to patient size.? ? COMPARISON:? [facility], CT, CT ABDOMEN PELVIS W CON, 04/29/2022, 18:20.? [facility], CT, CT ABDOMEN PELVIS WITH CONTRAST, 02/16/2022, 21:56. ? FINDINGS:? Image quality:? Excellent.? ? ABDOMEN:? Lung bases:? Lung bases are clear.? Heart size is normal.? ? Solid organs:? Liver is normal in size.? Gallbladder wall is not thickened.? Pancreas is normal in contours.? Spleen is normal in size.? No adrenal nodules.? Kidneys are normal in size, without hydronephrosis or nephrolithiasis.? ? Peritoneum and bowel:? Bariatric surgery can be seen.? Unenhanced bowel loops demonstrate normal wall thickness and caliber.? No free fluid or air.? There is a moderate amount of stool seen within the colon. Colonic diverticulosis is seen, without findings of active diverticulitis. ? Nodes and vessels:? No retroperitoneal or mesenteric adenopathy by size criteria.? Aorta and inferior vena cava are normal in caliber.? ? Miscellaneous:? No ventral hernias.? ? ? PELVIS:? Genitourinary:? Bladder wall thickness is normal.? ? Miscellaneous:? No inguinal hernias or adenopathy.? ? Bones:? No suspicious bony lesions.? No vertebral body compression fractures.? IMPRESSION:? Bariatric surgery, without cedric complication identified. ? No dilated loops of small bowel are seen. ? There is a moderate amount of stool seen within the colon. Please correlate with an underlying history of constipation.? Additional findings:? Diverticulosis, without active diverticulitis ? ? Dictated by: Jose Juan Hernandez M.D. on 05/30/2022 at 11:04 ? ? MDM Narrative Medical decision making narrative: Patient 52-year-old female who presents with history of knee sometimes 2 and gastric sleeve presenting with vomiting. She reports that she is having some bowel movements passing gas blood work is overall reassuring no leukocytosis or anemia electrolytes within limits no JENNIFER lipase is also within normal limits. Unfortunately patient was extremely hard IV start I attempted myself with peripheral ultrasound-guided IV we were able to get blood. Patient is not significantly dehydrated and not hypotensive tachycardic or signs on blood work. She is given IM medications, and a noncontrasted CT does not show any obstruction or abnormality. She was able to keep down like a small sip of water she is not persistently are intractably vomiting. Was going to give her Argillite however she is already had 2 narcotic prescriptions this month. She is not asking for anymore. She is given a prescription of Zofran an education on oral rehydration techniques Discharge Plan Departure Patient Disposition: Home Clinical Impression: Vomiting Instructions: DI for Vomiting -- Adult Activity Restrictions/Additional Instructions: *You have been diagnosed with vomiting *What to do: At this time I have sorry that you are vomiting please increase fluids as tolerated *Continue to take medications as directed Zofran 4 mg every 8 hours if needed for nausea vomiting --> sent to [facility] in [place] *Follow up with your primary care provider in 2-3 days or call [phone] *Return to ER if you should have persistent vomiting increasing abdominal pain fever or any new, worsening or concerning symptoms Prescriptions: New ondansetron 4 mg tablet,disintegrating 4 mg PO Q8H PRN (Reason: nausea and vomiting) Qty: 10 0RF No Action methylprednisolone [Medrol (Lewis)] 4 mg tablets,dose pack See Rx Instructions .ROUTE .COMPLEX Qty: 21 0RF Rx Instructions: orally per package directions cariprazine [Vraylar] 3 mg capsule 1 tab PO QPM buspirone 30 mg tablet 30 mg PO BID levothyroxine 88 mcg tablet 88 mcg PO DAILY baclofen 20 mg tablet 20 mg PO PRN Patient Comments: TAKE 1 TABLET BY MOUTH AT BEDTIME FOR MUSCLE SPASM meloxicam 7.5 mg tablet 7.5 mg PO DAILY Qty: 30 2RF Referrals: Ernesto Albrecht [Primary Care Provider] - Stand Alone Forms: Patient Portal/API
[2022-05-30 10:33] LABS: Add Manual Diff / Slide Review NO; Basophils Absolute Auto 100 /uL (0-100); Eosinophils Absolute Auto 200 /uL (0-450); Eosinophils Percent Auto 1.7 % (2-4); Hematocrit 40.3 % (36-46); Hemoglobin 13.3 g/dL (12.0-16.0); Lymphocytes Absolute Auto 2400 /uL (1100-4500); Lymphocytes Percent Auto 24.9 % (25-40); Mean Corpuscular HGB Conc 33.1 % (30-36); Mean Corpuscular Volume 87.7 fL (80-100); Monocytes Absolute Auto 1000 /uL (0-900); Monocytes Percent Auto 10.4 % (3-14); Neutrophils Absolute Auto 6000 /uL (1500-7000); Platelet Count 166 X10^3/uL (150-400); Red Cell Distribution Width 16.1 % (11.6-14.8); White Blood Cell Count 9.7 X10^3/uL (4.5-11.0)
[2022-05-30 10:45] LABS: Alanine Aminotransferase 25 IU/L (<35); Albumin 3.9 g/dL (3.5-5.0); Albumin Globulin Ratio 1.3 (1.0-2.8); Alkaline Phosphatase 114 U/L (38-126); Aspartate Aminotransferase 27 IU/L (14-36); BUN Creatinine Ratio 19.7 (6-22); Bilirubin Total 0.4 mg/dL (0.2-1.3); Blood Urea Nitrogen 13 mg/dL (7-17); Calcium 9.2 mg/dL (8.4-10.2); Carbon Dioxide 28 mmol/L (22-32); Chloride 103 mmol/L (98-107); Estimated Glomerular Filt Rate > 60 mL/min (>60); Globulin 2.9 g/dL (1.7-4.1); Glucose 91 mg/dL (70-100); HEMOLYSIS 31 (0-50); Lipase 129 U/L (23-300); Potassium 4.5 mmol/L (3.4-5.1); Sodium 139 mmol/L (137-145); Total Protein 6.8 g/dL (6.3-8.2)
[2022-05-30 11:05] LABS: Amorphous Sediment Urine 2+; Bacteria Urine Many (>30); Culture Indicated Urine Specimen Cultured; RBC Urine 0-1/HPF (0-5/HPF); Squamous Epithelial Cell Urine 1-5 /HPF (0-5/HPF); WBC Urine None Seen (0-5/HPF)
--- NOTE | 2022-05-30 11:26 | DI.CT.S_ITS ---
PROCEDURE: CT ABDOMEN PELVIS WO CON INDICATIONS: pain with vomiting hx gastric sleeve TECHNIQUE: Noncontrast 5 mm thick sections acquired from the diaphragms to the symphysis. 5 mm coronal and sagittal reformats were then performed. For radiation dose reduction, the following was used: automated exposure control, adjustment of mA and/or kV according to patient size. COMPARISON: [facility], CT, CT ABDOMEN PELVIS W CON, 04/29/2022, 18:20. [facility], CT, CT ABDOMEN PELVIS WITH CONTRAST, 02/16/2022, 21:56. FINDINGS: Image quality: Excellent. ABDOMEN: Lung bases: Lung bases are clear. Heart size is normal. Solid organs: Liver is normal in size. Gallbladder wall is not thickened. Pancreas is normal in contours. Spleen is normal in size. No adrenal nodules. Kidneys are normal in size, without hydronephrosis or nephrolithiasis. Peritoneum and bowel: Bariatric surgery can be seen. Unenhanced bowel loops demonstrate normal wall thickness and caliber. No free fluid or air. There is a moderate amount of stool seen within the colon. Colonic diverticulosis is seen, without findings of active diverticulitis. Nodes and vessels: No retroperitoneal or mesenteric adenopathy by size criteria. Aorta and inferior vena cava are normal in caliber. Miscellaneous: No ventral hernias. PELVIS: Genitourinary: Bladder wall thickness is normal. Miscellaneous: No inguinal hernias or adenopathy. Bones: No suspicious bony lesions. No vertebral body compression fractures. IMPRESSION: Bariatric surgery, without cedric complication identified. No dilated loops of small bowel are seen. There is a moderate amount of stool seen within the colon. Please correlate with an underlying history of constipation. Additional findings: Diverticulosis, without active diverticulitis Dictated by: Jose Juan Hernandez M.D. on 05/30/2022 at 11:04 Approved by: Jose Juan Hernandez M.D. on 05/30/2022 at 11:06
--- NOTE | 2022-05-30 11:26 | PC.NURSE ---
LIAM Zambrano attempted IV 2x. 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 MD attempted IV insertion with use of US and unsuccessfull. orders for IV medications altered to reflect no IV access.
[2022-05-30] MEDS: HYDROMORPHONE 1 MG INJ IM (11:35)
[2022-05-30] MEDS: ONDANSETRON 4 MG ODT PO (11:36)
--- NOTE | 2022-05-30 12:54 | PC.NURSE ---
Pt given water with education to take small sips at intervals, verbalizes understanding.
--- NOTE | 2022-05-30 13:24 | PC.NURSE ---
pt started PO challenge, given water to drink. SHOE REPAIRER APPRENTICE reported pt threw up. went to speak with pt. Patient states the small sip of water she had made her throat burn and she burped it back up and then spit it out. Pt emesis bag shows small amount of spit in it. discussed conversation with provider. provider went into room to speak with patient
== END 2022-05-30 13:36 | disposition home or self-care (01) ==
PROVIDERS: Emergency Provider Emergency Medicine; Family Provider Internal Medicine; PCP Internal Medicine
DX: R11.10 Vomiting, unspecified (principal); R10.13 Epigastric pain; Z98.84 Bariatric surgery status
CPT/HCPCS: 36415; 74176; 80053; 81003; 81015; 83690; 85025; 87086; 93005; 93010; 96372; 99284; J1170

== ENCOUNTER → 2022-07-22 07:47 | Outpatient (CLI) | payer OTHER, MEDICAID, SELFPAY ==
[2018-01-05 10:58] VITALS: BMI 26.1
--- NOTE | 2022-07-22 07:48 | DI.MRI.S_ITS ---
PROCEDURE: MR CERVICAL SPINE WO CON INDICATIONS: BILATERAL CERVICAL RADICULOPATHY TECHNIQUE: Noncontrast sagittal T1 spin echo and T2 fast spin echo, sagittal STIR, foraminal oblique sagittal T2 fast spin echo, and axial gradient echo or T2 fast spin echo through the cervical spine. COMPARISON: [facility], CR, XR CERVICAL SPINE 2 OR 3 VIEWS, 05/18/2022, 15:37. FINDINGS: Image quality: Excellent. Alignment and Curvature: There is loss of normal cervical lordosis. Bone Marrow: Marrow demonstrates normal overall signal. There is moderate reactive signal within the endplates adjacent to the C4-C5 intervertebral disc. Mild reactive signal within the remaining cervical and upper thoracic endplates. Spinal Cord: Visualized spinal cord has normal size and signal. No cerebellar tonsillar herniation. Paraspinous Soft Tissues: No paravertebral masses. Prevertebral soft tissues are normal in thickness. C2-C3: Mild disc desiccation. No significant canal nor foraminal stenosis. C3-C4: Moderate disc desiccation. Mild diffuse disc bulge. Mild facet and uncovertebral hypertrophy bilaterally. Mild canal stenosis. Severe left and mild right foraminal stenosis. Left C4 nerve root compression. C4-C5: Moderate disc desiccation. Mild diffuse disc bulge. Mild facet and uncovertebral hypertrophy bilaterally. Mild canal stenosis. Moderate bilateral foraminal stenosis. C5-C6: Moderate disc desiccation. Mild diffuse disc bulge. Mild facet and uncovertebral hypertrophy bilaterally. Mild canal stenosis. Mild bilateral foraminal stenosis. C6-C7: Moderate disc desiccation. Mild disc height loss and diffuse disc bulge. Mild facet and uncovertebral hypertrophy. Mild canal stenosis. Mild bilateral foraminal stenosis. C7-T1: Moderate disc desiccation. Mild diffuse disc bulge. Mild facet and uncovertebral hypertrophy. Mild canal stenosis. Mild bilateral foraminal stenosis. IMPRESSION: 1. Multilevel degenerative disc and facet disease, as well as uncovertebral hypertrophy. 2. Mild multilevel canal stenosis. 3. Multilevel foraminal stenoses, worst at C3-C4, where there is associated intraforaminal nerve root compression. 4. Recommend correlation with clinical symptoms to ascertain relevance of this finding. Dictated by: Azul Javier M.D. on 07/22/2022 at 9:56 Approved by: Azul Javier M.D. on 07/22/2022 at 10:01
== END ==
PROVIDERS: Family Provider Internal Medicine; PCP Internal Medicine; Referring Provider Anesthesiology; Visit Provider Anesthesiology
DX: M47.22 Other spondylosis with radiculopathy, cervical region (principal); M50.11 Cervical disc disorder with radiculopathy, high cervical region; M48.02 Spinal stenosis, cervical region
CPT/HCPCS: 72141

== ENCOUNTER 2022-08-12 08:12 | Outpatient (CLI) | payer OTHER, MEDICAID, SELFPAY ==
[2018-01-05 10:58] VITALS: BMI 26.1
[2022-08-12] VITALS (10 sets, daily range): BP systolic 110–133; BP diastolic 66–81; PULSE 77–93; RESP 14–21; TEMP 36.6; O2SAT 97–100
--- NOTE | 2022-08-12 08:13 | DI.RAD.S_ITS ---
PROCEDURE: PAIN C/T INTERLAMINAR INJECT INDICATIONS: SPINAL STENOSIS COMPARISON: None. FINDINGS: Fluoroscopic spot filming was performed to verify placement of spinal needles at the C7-T1 level(s), as labeled on the films. Appropriate location(s) of the needle tip(s) was confirmed by injection of iodinated contrast. IMPRESSION: Fluoro guidance was provided intraoperatively for C7-T1 translaminar CAROLYNE performed by the ordering physician. Dictated by: Kirit Baker M.D. on 08/12/2022 at 11:10 Approved by: Kirit Baker M.D. on 08/12/2022 at 11:24
[2022-08-12] MEDS: MIDAZOLAM 2 MG/2 ML VIAL IV (09:17)
[2022-08-12] MEDS: DEXAMETHASONE 10 MG/ML VIAL 20 MG INJ (09:20)
[2022-08-12] MEDS: IOPAMIDOL 15 ML VIAL 3 ML INJ (09:20)
--- NOTE | 2022-08-12 09:54 | PC.NURSE ---
Pt c/o headache 04/17 upon discharge from back of head wrapping around to forehead. She also states this is a typical headache for her and nothing new so discharged pt to home.
--- NOTE | 2022-08-12 11:58 | P.PCN_ITS ---
Date/Time/Diagnoses Date of procedure: 08/12/22 Time of procedure: 09:00 Procedure Notes Physician: Keith Tsai Total Fluoroscopy time (seconds): 17 Total sedation minutes: 13 Procedure in detail & Post-procedure care: C7-T1 Interlaminar Epidural Steroid Injection Indications: Jocelyn is presenting for treatment of cervical radiculopathy with neck and arm pain. Preoperative diagnosis: Cervical radiculopathy Postoperative diagnosis: Same Focused Examination: Ax3 Mood and affect are normal Vital Signs: VSS ASA: 2 Consent: Following review of allergies and potential side effects/complications, including, but not necessarily limited to, infection, allergic reaction, local tissue breakdown, stroke, temporary or permanent nerve injury, paralysis, and possible , the patient indicated that they understood and agreed to pr oceed.? An informed consent document was signed by the patient, witnessed by a nurse and placed in the patient's chart.? Additionally, other treatment options including medications and physical therapy were reviewed with the patient. All questions were answered. Site was then marked. Anesthesia: After review of previous anesthetic history and IV conscious sedation, the patient was deemed safe to proceed with today's procedure with IV conscious sedation. IV sedation was accomplished with midazolam 2 mg administered by the RN after physician order. Sedation was titrated to patient comfort during the course of the procedure. Patient remained responsive to all verbal commands. Position: Prone Monitoring: NIBP, Pulse oximetry, 3 lead EKG Needle used: 18 G 3.5? Tuohy Contrast: Isovue 300-M 2 mL Injectate: Dexamethasone 15 mg followed by Normal Saline 1.5 mL Technique: The skin was prepped with chloraprep and then draped in a sterile fashion. Time out was performed as per protocol. Oxygen applied via NC. Skin and subcutaneous structures of the needle entry site was then infiltrated with 3 mL of lidocaine 1%. Under AP, lateral and contralateral oblique fluoroscopic control, the Tuohy needle was guided into the C7-T1 epidural space. The space was accessed with loss of resistance technique. Isovue 300-M was then injected and the spread was consistent with the epidural space. There was no evidence for intravascular or intrathecal uptake. After negative aspiration, the above- mentioned injectate was then slowly administered and the needle withdrawn. The patient expressed no unusual discomfort or paresthesias during the injection. Band-Aids applied to injection sites. EBL: less than 1 ml Complications: None Post Procedure: Patient was taken to the recovery and monitored. The patient was provided a Pain Log to continue to record the patient's response to the target- specific procedure prior to the patient's follow-up visit with the referring physician. Patient was stable upon discharge. Detailed post procedure instructions were provided. Patient was asked to call in the event of worsening pain, fever, weakness, numbness or bladder or bowel incontinence.
== END 2022-08-12 09:54 | disposition home or self-care (01) ==
PROVIDERS: Family Provider Internal Medicine; PCP Internal Medicine; Referring Provider Anesthesiology; Visit Provider Anesthesiology
DX: M54.12 Radiculopathy, cervical region (principal)
CPT/HCPCS: 62321; 99152; J1100; J2250

== ENCOUNTER 2022-12-09 08:20 | Outpatient (CLI) | payer OTHER, SELFPAY ==
[2022-09-25 11:17] VITALS: BMI 26.1
[2022-12-09] VITALS (9 sets, daily range): BP systolic 102–138; BP diastolic 56–78; PULSE 101–111; RESP 15–169; TEMP 36.4; O2SAT 96–98
--- NOTE | 2022-12-09 08:22 | DI.RAD.S_ITS ---
PROCEDURE: PAIN C/T FACET INJ/BLK 1ST L INDICATIONS: SPINAL STENOSIS COMPARISON: [facility], , PAIN C/T INTERLAMINAR INJECT, 08/12/2022, 9:13. FINDINGS: Fluoroscopic spot filming was performed to verify placement of spinal needles on the left at the C4, C5, and C6 levels, as labeled on the films. Appropriate location of the needle tips was confirmed by injection of iodinated contrast. IMPRESSION: Intraprocedural examination demonstrating appropriate positions of the needles. Dictated by: Jose Juan Hernandez M.D. on 12/09/2022 at 10:43 Approved by: Jose Juan Hernandez M.D. on 12/09/2022 at 10:44
[2022-12-09] MEDS: MIDAZOLAM 2 MG/2 ML VIAL IV (09:14)
[2022-12-09] MEDS: BUPIVACAINE 0.5% (PF) 10 ML VIAL 5 ML INJ (09:17)
[2022-12-09] MEDS: iopamidoL 15 ML VIAL 3 ML INJ (09:17)
--- NOTE | 2022-12-09 12:43 | P.PCN_ITS ---
Date/Time/Diagnoses Date of procedure: 12/09/22 Time of procedure: 09:00 Procedure Notes Physician: Keith Tsai Total Fluoroscopy time (seconds): 31 Total sedation minutes: 13 Procedure in detail & Post-procedure care: Left C4, 5, 6 Cervical Medial Branch Blocks Indications: Jocelyn is presenting for treatment of cervical spondylosis with cervical pain. Preoperative diagnosis: Cervical spondylosis Postoperative diagnosis: Same Pre-procedure History: F Patient demonstrates today moderate to severe non- radicular neck pain without neurologic deficit aggravated by hyperextension yes Neck pain greater than arm pain? yes Patient today has tenderness over the suspected joint(s) yes History of post-traumatic injury? no Hypertrophic arthropathy yes Neck pain associated with suspected motion segment instability, hypermobility or pseudoarthrosis no Pre-testing pain score (VAS): 9/10 Focused Examination: Ax3 Mood and affect are normal Vital Signs: VSS ASA: 2 Consent: Following review of allergies and potential side effects/complications, including, but not necessarily limited to, infection, allergic reaction, local tissue breakdown, stroke, temporary or permanent nerve injury, paralysis, and possible , the patient indicated that they understood and agreed to proceed.? An informed consent document was signed by the patient, witnessed by a nurse and placed in the patient's chart.? Additionally, other treatment options including medications and physical therapy were reviewed with the patient. All questions were answered. Site was then marked. Anesthesia: After review of previous anesthetic history and IV conscious sedation, the patient was deemed safe to proceed with today's procedure with IV conscious sedation. IV sedation was accomplished with midazolam 2 mg administered by the RN after order by Dr. Tsai. Sedation was titrated to patient comfort during the course of the procedure. Patient remained responsive to all verbal commands. Position: Prone Monitoring: NIBP, Pulse oximetry, 3 lead EKG Needle used: 22G 3.5 inch spinal needle Contrast: Isovue 300M Injectate: 0.5% Bupivacaine 0.5 mL per site Procedure: The patient was brought into the procedure room and positioned into the prone position. Skin was prepped with a Chloraprep solution, allowed to air dry, and then draped in sterile fashion.? The left C4-5 and C5-6 facet joints were visually identified with fluoroscopy. Lidocaine 1% was used to anesthetize the skin over each target destination with a 25ga needle. A 22 ga, 3.5 inch spinal needle was advanced to the location of the medial branch at the waist of the articular pillar using intermittent fluoroscopy in the AP view. Isovue 300M contrast 0.2ml was injected at each level outlining the borders for each level in the AP/lateral views and confirmed in the foraminal view. There was no evidence of vascular or intrathecal uptake. The above injectate was slowly injected at each target destination. At the end of the procedure the needles were withdrawn and Band-Aids were applied for a dressing. Post Procedure: Patient was taken to the recovery and monitored. The patient was provided a Pain Log to continue to record the patient's response to the target- specific procedure prior to the patient's follow-up visit with the referring physician. Patient was stable upon discharge. Detailed post procedure instructions were provided. Patient was asked to call in the event of worsening pain, fever, weakness, numbness or bladder or bowel incontinence. Postoperatively, the patient demonstrates the following changes with hyperextension and with tenderness over the suspected joint(s). 3 Provacative testing using the facet loading test Right side Left side Directly before the block ?VAS (0-10) = 9/10 VAS (0-10) = 9/10 5 minutes after the block VAS (0-10) = 6/10 VAS (0-10) = 6/10 Percentage relief obtained with this diagnostic block 33% 33% Any improved physical functioning directly after the blocks? Range of motion Based on the medial branches blocked today, if the patient meets insurance criteria for radiofrequency, the treatment should result in the denervation of the left C4-5 and C5-6 facet joint nerves. We would expect to denervate a total of 2 facets during the radiofrequency ablation. Complications: None
== END 2022-12-09 09:49 | disposition home or self-care (01) ==
LOC: RAD 08:21
PROVIDERS: Family Provider Internal Medicine; PCP Internal Medicine; Referring Provider Anesthesiology; Visit Provider Anesthesiology
DX: M47.812 Spondylosis without myelopathy or radiculopathy, cervical region (principal)
CPT/HCPCS: 64490; 64491; 99152; J2250

== ENCOUNTER 2023-05-02 16:27 | Emergency (ER) | payer OTHER, MEDICAID, SELFPAY ==
[2022-09-25 11:17] VITALS: BMI 26.1
[2023-05-02] VITALS (15 sets, daily range): BP systolic 98–147; BP diastolic 62–92; PULSE 71–101; RESP 18; TEMP 36.7–36.8; O2SAT 94–98; BMI 30.2
--- NOTE | 2023-05-02 21:29 | ED.EXTPRO ---
HPI - Extremity Problem General Chief complaint: Extremity Problem,Nontraumatic Stated complaint: severe body jerks Time Seen by Provider: 05/02/23 21:29 Source: patient Mode of arrival: Ambulatory Limitations: no limitations History of Present Illness HPI Narrative: 52-year-old female with history of hypothyroidism, GERD, chronic back pain with sensation of twitching or jerking. Patient states she has had some in the past she was started on baclofen she takes that regularly. She states last night she sort of had some twitching of her left leg were sort of jerking as she was falling asleep she took a Percocet and got better. She states today she is felt just took twitchy and jerky all over. Denies fevers, no chest pain, no shortness of breath. Patient denies any nausea or vomiting. No abdominal back or flank pain. No incontinence. No dysuria urgency or frequency. No issues with bowel movements. No mental status changes. Patient now has not fevers or sweats. It has been intermittent not persistent. She takes several medications including baclofen, gabapentin, omeprazole, oxycodone and recently added Unisom in the last 2-3 days. She has had prior Ivania fundoplication, gastric bypass. Does use tobacco, occasional alcohol, no recreational drugs. She states she has not having symptoms currently. Related Data Home Medications Medication Instructions Recorded Confirmed levothyroxine 88 mcg tablet 88 mcg PO DAILY 05/26/22 05/02/23 omeprazole 40 mg capsule,delayed 40 mg PO DAILY 07/28/22 12/24/22 release oxycodone-acetaminophen 5 mg-325 1 tab PO PRN pain 07/28/22 12/24/22 mg tablet pregabalin 100 mg capsule 100 mg PO BID 07/28/22 12/24/22 baclofen 20 mg tablet 40 mg PO BEDTIME 09/29/22 05/02/23 calcium citrate 1,040 mg tablet 1,040 mg PO DAILY 09/29/22 12/24/22 cholecalciferol (vitamin D3) 50 50 mcg PO DAILY 09/29/22 05/02/23 mcg (2,000 unit) capsule cyanocobalamin (vitamin B-12) 1,000 mcg PO DAILY 09/29/22 05/02/23 1,000 mcg capsule multivitamin 1 tab PO DAILY 09/29/22 12/24/22 nortriptyline 10 mg capsule 10 mg PO BEDTIME 09/29/22 12/24/22 diphenhydramine HCl 50 mg capsule 50 mg PO BEDTIME 05/02/23 05/02/23 (Unisom SleepGels) gabapentin 300 mg capsule mg PO 05/02/23 melatonin 5 mg tablet 5 mg PO BEDTIME PRN Insomnia 05/02/23 05/02/23 oxycodone-acetaminophen 10 mg-325 1 tab PO 3XD PRN Pain, Moderate 05/02/23 05/02/23 mg tablet Previous Rx's Medication Instructions Recorded ondansetron 4 mg disintegrating 4 mg PO Q8H PRN nausea and 05/30/22 tablet vomiting #10 tabs meloxicam 7.5 mg tablet 7.5 mg PO DAILY #30 tabs 10/21/22 Allergies Allergy/AdvReac Type Severity Reaction Status Date / Time lamotrigine [From LAMICTAL] Allergy Severe swelling Verified 05/02/23 16:40 lips, hands tongue Review of Systems Review of Systems ROS Unobtainable: All systems reviewed & are unremarkable except as noted in HPI and below Patient History Medical History Cervical spondylosis Cervicalgia Ataxia Cervical radiculopathy Hypothyroid Bipolar 1 disorder Diverticulitis Bone spur of foot Surgical History History of Ivania fundoplication S/P correction of deviated nasal septum H/O: hysterectomy History of carpal tunnel release History of bowel resection S/P removal of left ovary Family History Grandmother Ovarian cancer Family/Other Diabetes mellitus Social History marital status: household members: spouse occupational status: unemployed Smoking Status: Current every day smoker alcohol intake: never Smoking Status: Current every day smoker alcohol intake frequency: holidays/special occasions only Substance Use Type: does not use Exam Narrative Exam Narrative: GEN: well nourished, well appearing female, alert and oriented x 3, patient appears to be in mild distress. HEENT: Atraumatic, pupils are equal round reactive to light, no nystagmus, extraocular movements are intact, nares are clear, there is no conjunctival pallor. Throat is clear without any exudates, erythema, tonsillar enlargement or uvular deviation, no facial droop HEART: Regular rate and rhythm without murmur, clicks, rubs. Pulses are equal in upper extremities LUNGS:Lungs clear to auscultation, no wheezes, rales, crackles, chest moves symmetrically ABD:bowel sounds normal, soft, non-tender, no guarding, rebound, rigidity, no masses noted, no hepatosplenomegaly :No CVA tenderness MSCL: Non-tender, no muscle atrophy, muscles strength 5/5 upper and lower extremities, full range of motion, normal gait NEURO:CN 2-12 intact, sensation normal, reflexes 2/4 upper and lower extremities. finger nose finger test normal, heel lofton test normal Initial Vital Signs Initial Vital Signs: Vital Signs Temperature 98.2 F 05/02/23 16:40 Pulse Rate 94 H 05/02/23 16:40 Respiratory Rate 18 05/02/23 16:40 Blood Pressure 140/81 05/02/23 16:40 Pulse Oximetry 98 05/02/23 16:40 Oxygen Delivery Method Room Air 05/02/23 16:40 Course Orders Ordered: ED Orders 05/02/23 21:38 CT head/brain wo con Stat 05/02/23 21:55 CBC Auto Diff [Complete Blood Count AUTO DIFF] Stat CMP [Comprehensive Metabolic Panel] Stat MAG [Magnesium] Stat Vital Signs Vital signs: Vital Signs - 8 hr 05/02/23 16:40 05/02/23 18:58 05/02/23 19:00 Temperature 98.2 F Pulse Rate 94 H 83 Pulse Rate [Left Dorsalis Pedis] Respiratory Rate 18 Blood Pressure 140/81 135/86 Pulse Oximetry 98 97 Oxygen Delivery Method Room Air 05/02/23 19:00 05/02/23 19:08 05/02/23 19:30 Temperature Pulse Rate 80 Pulse Rate [Left Dorsalis Pedis] 80 Respiratory Rate Blood Pressure 129/92 H Pulse Oximetry 98 Oxygen Delivery Method 05/02/23 19:30 05/02/23 20:00 05/02/23 20:00 Temperature Pulse Rate 71 74 Pulse Rate [Left Dorsalis Pedis] Respiratory Rate Blood Pressure 122/89 Pulse Oximetry 97 98 Oxygen Delivery Method 05/02/23 20:19 05/02/23 20:19 05/02/23 20:30 Temperature Pulse Rate 91 H Pulse Rate [Left Dorsalis Pedis] Respiratory Rate Blood Pressure 147/82 H 138/81 Pulse Oximetry 97 Oxygen Delivery Method 05/02/23 20:30 05/02/23 21:00 05/02/23 21:00 Temperature Pulse Rate 85 79 Pulse Rate [Left Dorsalis Pedis] Respiratory Rate Blood Pressure 140/84 Pulse Oximetry 98 96 Oxygen Delivery Method Room Air Room Air 05/02/23 21:30 05/02/23 21:30 05/02/23 22:10 Temperature Pulse Rate 88 95 H Pulse Rate [Left Dorsalis Pedis] Respiratory Rate Blood Pressure 144/86 H Pulse Oximetry 95 94 Oxygen Delivery Method Room Air Room Air 05/02/23 22:17 05/02/23 22:17 05/02/23 22:30 Temperature Pulse Rate 101 H 88 Pulse Rate [Left Dorsalis Pedis] Respiratory Rate Blood Pressure 128/79 Pulse Oximetry 95 98 Oxygen Delivery Method Room Air Room Air 05/02/23 22:30 05/02/23 23:00 05/02/23 23:00 Temperature Pulse Rate 89 Pulse Rate [Left Dorsalis Pedis] Respiratory Rate Blood Pressure 112/69 98/62 Pulse Oximetry 96 Oxygen Delivery Method Room Air MDM - Extremity (Nontraumatic) Lab Data 05/02/23 21:55 05/02/23 21:55 Labs: Lab Results 05/02/23 Range/Units 21:55 WBC 8.0 (4.5-11.0) X10^3/uL RBC 4.84 (4.0-5.2) X10^6/uL Hgb 12.4 (12.0-16.0) g/dL Hct 37.7 (36-46) % MCV 78.0 L (80-100) fL MCH 25.7 L (26-34) PG MCHC 33.0 (30-36) % RDW 17.5 H (11.6-14.8) % Plt Count 210 (150-400) X10^3/uL Neut % (Auto) 58.8 (50-75) % Lymph % (Auto) 31.6 (25-40) % [place] % (Auto) 6.9 (3-14) % Eos % (Auto) 1.8 L (2-4) % Baso % (Auto) 0.9 (0-2) % Neut # (Auto) 4700 (0794-6738) /uL Lymph # (Auto) 2500 (5173-2074) /uL [place] # (Auto) 600 (0-900) /uL Eos # (Auto) 100 (0-450) /uL Baso # (Auto) 100 (0-100) /uL Sodium 139 (137-145) mmol/L Potassium 3.9 (3.4-5.1) mmol/L Chloride 106 (98-107) mmol/L Carbon Dioxide 28 (22-32) mmol/L BUN 8 (7-17) mg/dL Creatinine 0.57 (0.52-1.04) mg/dL Estimated GFR > 60 (>60) mL/min BUN/Creatinine Ratio 14.0 (6-22) Glucose 89 (70-100) mg/dL Calcium 9.1 (8.4-10.2) mg/dL Magnesium 2.0 (1.6-2.3) mg/dL Total Bilirubin 0.5 (0.2-1.3) mg/dL AST 23 (14-36) IU/L ALT 15 (<35) IU/L Alkaline Phosphatase 133 H (38-126) U/L Total Protein 6.6 (6.3-8.2) g/dL Albumin 3.6 (3.5-5.0) g/dL Globulin 3.0 (1.7-4.1) g/dL Albumin/Globulin Ratio 1.2 (1.0-2.8) Imaging Data CT scan - head: Radiologist's Impression: Close Head CT (Signed) Iggy Yung - 05/02/23 Facet Joint Injection X-Ray (Signed) Jose Juan Hernandez - 12/09/22 Cervical/Thoracic Injection (Signed) Kirit Baker - 08/12/22 Cervical Spine MRI (Signed) Azul Javier - 07/22/22 Abdomen/Pelvis CT (Signed) Jose Juan Hernandez - 05/30/22 Abdomen/Pelvis CT (Signed) Yves Jean Baptiste - 04/29/22 Head/Neck CTA (Signed) Willy Huerta - 04/12/[address] (Signed) Jose Juan Hernandez - 04/12/21 Chest X-Ray (Signed) Willy Huerta - 04/12/21 Telemetry Strips 03/24/18 Telemetry Strips 01/01/18 Abdomen/Pelvis CT (Signed) FanManuel - 01/01/18 Launch?[address] [address] [address] Scan Report Signed Patient: Jocelyn Riggins MR#: [id number] : 1970 Acct:[id number] Age/Sex: 52 / F Date of Service: 05/02/23 Loc: ED Accession Number: [id number] Procedure: CT head/brain wo con Ordering Provider: Darlene Vaughn D.O. PROCEDURE: CT HEAD/BRAIN WO CON INDICATIONS: twitching extremities. TECHNIQUE: Noncontrast 4.5 mm thick angled axial sections acquired from the foramen magnum to the vertex, with coronal and sagittal reformats. For radiation dose reduction, the following was used: automated exposure control, adjustment of mA and/or kV according to patient size. COMPARISON: None. FINDINGS: Image quality: Diagnostic. CSF spaces: Basal cisterns are patent. No extra-axial fluid collections. Ventricles are normal in size and shape. Brain: Smaller of hypoattenuation within the left parietal lobe, appears chronic in etiology. No midline shift. No intracranial masses or hemorrhage. Garcia-white matter interface is normal. Skull and face: Calvarium and visualized facial bones are intact, without suspicious lesions. Sinuses: Visualized sinuses and mastoids are clear. IMPRESSION: 1. No acute intracranial pathology. 2. Small area of hypoattenuation within the left parietal lobe which appears chronic in etiology. May represent prior small infarct or other insult. MRI can be obtained for further evaluation as clinically indicated. Dictated by: Iggy Yung M.D. on 05/02/2023 at 22:54 Approved by: Iggy Yung M.D. on 05/02/2023 at 22:58 [facility] Narrative Medical decision making narrative: 52-year-old female with complaint of twitching extremity she reports initially mostly left lower extremity but spouse states it seems to be all over at times. No loss of consciousness does not sound like focal seizures. Plan for head CT and labs, if these are negative I would also potentially suspect she is on multiple medications including gabapentin, baclofen and has recently added Unasyn some there maybe some medication directions causing some of her symptoms. CT shows no acute change small area of hypoattenuation left parietal lobe appears chronic in etiology may represent prior small infarct or other insult. This is not consistent with patient's complaint of left-sided twitching earlier today. CBC shows macrocytosis but normal hemoglobin, white count and platelets. Electrolytes are normal, renal function appropriate at patient's Mag is 2, potassium 3 9 sodium is 139. Alk-phos is 133 but normal LFTs. Discussed findings with patient recommend follow up with primary care. I would recommend she hold her Unisom as this in conjunction with her other medications might be precipitating some medication interaction. Patient ambulated from the department with out any issue. Reviewed findings with patient. Need for followup. Discharge Plan Departure Patient Disposition: Home Clinical Impression: Twitching Activity Restrictions/Additional Instructions: Follow-up with your physician for recheck. Your head CT shows a small area in the left could be potential prior stroke but does not fit with your current symptoms. Share this information with your physician so they can follow it up. Your labs do not show any clear cause for your symptoms. Some of the medications you take in combination with the new medication of Unisom could cause a medication interaction that can cause twitching jerking. I would stopped the Unisom for the time being to see if this improves your symptoms. Please return for sudden changes to mental status, persistent or prolonged twitching or jerking, passing out, seizure-like activity, persistent vomiting, loss of bowel or bladder control, sudden vision changes, difficulty with speech or other new or concerning changes. Prescriptions: No Action meloxicam 7.5 mg tablet 7.5 mg PO DAILY Qty: 30 2RF gabapentin 300 mg capsule PO Rx Instructions: 600 mg in am, 600 mg afternoon, 900 mg bedtime diphenhydramine HCl [Unisom SleepGels] 50 mg Capsule 50 mg PO BEDTIME oxycodone-acetaminophen 10-325 mg tablet 1 tab PO 3XD PRN (Reason: Pain, Moderate) melatonin 5 mg Tablet 5 mg PO BEDTIME PRN (Reason: Insomnia) ondansetron 4 mg tablet,disintegrating 4 mg PO Q8H PRN (Reason: nausea and vomiting) Qty: 10 0RF levothyroxine 88 mcg tablet 88 mcg PO DAILY baclofen 20 mg tablet 40 mg PO BEDTIME calcium citrate 1,040 mg tablet 1,040 mg PO DAILY cholecalciferol (vitamin D3) 50 mcg (2,000 unit) capsule 50 mcg PO DAILY cyanocobalamin (vitamin B-12) 1,000 mcg capsule 1,000 mcg PO DAILY multivitamin Tablet 1 tab PO DAILY nortriptyline 10 mg capsule 10 mg PO BEDTIME omeprazole 40 mg capsule,delayed release(DR/EC) 40 mg PO DAILY pregabalin 100 mg capsule 100 mg PO BID oxycodone-acetaminophen 5-325 mg tablet 1 tab PO PRN (Reason: pain) Patient Comments: TAKE 1/2 TO 1 (ONE-HALF TO ONE) TABLET BY MOUTH EVERY 6 HOURS NEEDED FOR PAIN Referrals: Ernesto Albrecht [Primary Care Provider] - Stand Alone Forms: Patient Portal/API
--- NOTE | 2023-05-02 21:38 | DI.CT.S_ITS ---
PROCEDURE: CT HEAD/BRAIN WO CON INDICATIONS: twitching extremities. TECHNIQUE: Noncontrast 4.5 mm thick angled axial sections acquired from the foramen magnum to the vertex, with coronal and sagittal reformats. For radiation dose reduction, the following was used: automated exposure control, adjustment of mA and/or kV according to patient size. COMPARISON: None. FINDINGS: Image quality: Diagnostic. CSF spaces: Basal cisterns are patent. No extra-axial fluid collections. Ventricles are normal in size and shape. Brain: Smaller of hypoattenuation within the left parietal lobe, appears chronic in etiology. No midline shift. No intracranial masses or hemorrhage. Garcia-white matter interface is normal. Skull and face: Calvarium and visualized facial bones are intact, without suspicious lesions. Sinuses: Visualized sinuses and mastoids are clear. IMPRESSION: 1. No acute intracranial pathology. 2. Small area of hypoattenuation within the left parietal lobe which appears chronic in etiology. May represent prior small infarct or other insult. MRI can be obtained for further evaluation as clinically indicated. Dictated by: Iggy Yung M.D. on 05/02/2023 at 22:54 Approved by: Iggy Yung M.D. on 05/02/2023 at 22:58
[2023-05-02 22:16] LABS: Add Manual Diff / Slide Review NO; Basophils Absolute Auto 100 /uL (0-100); Basophils Percent Auto 0.9 % (0-2); Eosinophils Absolute Auto 100 /uL (0-450); Eosinophils Percent Auto 1.8 % (2-4); Hematocrit 37.7 % (36-46); Hemoglobin 12.4 g/dL (12.0-16.0); Lymphocytes Absolute Auto 2500 /uL (1100-4500); Lymphocytes Percent Auto 31.6 % (25-40); Mean Corpuscular Hemoglobin 25.7 PG (26-34); Monocytes Absolute Auto 600 /uL (0-900); Monocytes Percent Auto 6.9 % (3-14); Neutrophils Absolute Auto 4700 /uL (1500-7000); Neutrophils Percent Auto 58.8 % (50-75); Platelet Count 210 X10^3/uL (150-400); Red Blood Cell Count 4.84 X10^6/uL (4.0-5.2); Red Cell Distribution Width 17.5 % (11.6-14.8)
[2023-05-02 22:32] LABS: Alanine Aminotransferase 15 IU/L (<35); Albumin 3.6 g/dL (3.5-5.0); Albumin Globulin Ratio 1.2 (1.0-2.8); Alkaline Phosphatase 133 U/L (38-126); Aspartate Aminotransferase 23 IU/L (14-36); Bilirubin Total 0.5 mg/dL (0.2-1.3); Blood Urea Nitrogen 8 mg/dL (7-17); Calcium 9.1 mg/dL (8.4-10.2); Carbon Dioxide 28 mmol/L (22-32); Chloride 106 mmol/L (98-107); Estimated Glomerular Filt Rate > 60 mL/min (>60); Glucose 89 mg/dL (70-100); HEMOLYSIS < 15 (0-50); Potassium 3.9 mmol/L (3.4-5.1); Sodium 139 mmol/L (137-145); Total Protein 6.6 g/dL (6.3-8.2)
== END 2023-05-02 23:20 | disposition home or self-care (01) ==
PROVIDERS: Emergency Provider Emergency Medicine; Family Provider Internal Medicine; PCP Internal Medicine
DX: R25.3 Fasciculation (principal)
CPT/HCPCS: 36415; 70450; 80053; 83735; 85025; 99283; 99284

== ENCOUNTER 2023-08-24 19:30 | Emergency (ER) | payer OTHER, MEDICAID, SELFPAY ==
[2022-09-25 11:17] VITALS: BMI 26.1
[2023-08-24] VITALS (10 sets, daily range): BP systolic 106–133; BP diastolic 66–84; PULSE 74–95; RESP 16; TEMP 36.8; O2SAT 97–100
--- NOTE | 2023-08-24 19:47 | ED_ITS ---
HPI - General Adult General Chief complaint: Abdominal Pain Stated complaint: states diverticulitis blow out Time Seen by Provider: 08/24/23 19:47 History of Present Illness HPI narrative: 53-year-old woman with a history of hyperlipidemia, depression, iron deficiency anemia, anxiety, hypothyroidism, chronic neck pain who presents with acute onset of right lower quadrant abdominal pain starting at 6:00 p.m. after she awoke from a nap. She was feeling fine this morning with no symptoms whatsoever. She notes she has been having normal bowel movements. She is still passing gas. She is nauseated but has not yet vomited. Does not describe any fevers. No chest pain, palpitations and no significant headache, no dysuria and no vaginal discharge. She does have a history of gastric bypass. Related Data Home Medications Medication Instructions Recorded Confirmed levothyroxine 88 mcg tablet 88 mcg PO DAILY 05/26/22 08/12/23 pregabalin 100 mg capsule 100 mg PO BID 07/28/22 08/12/23 calcium citrate 1,040 mg tablet 1,040 mg PO DAILY 09/29/22 08/12/23 cholecalciferol (vitamin D3) 50 50 mcg PO DAILY 09/29/22 08/12/23 mcg (2,000 unit) capsule cyanocobalamin (vitamin B-12) 1,000 mcg PO DAILY 09/29/22 08/12/23 1,000 mcg capsule multivitamin 1 tab PO DAILY 09/29/22 08/12/23 melatonin 5 mg tablet 5 mg PO BEDTIME PRN Insomnia 05/02/23 08/12/23 oxycodone-acetaminophen 10 mg-325 1 tab PO 3XD PRN Pain, Moderate 05/02/23 08/12/23 mg tablet atorvastatin 20 mg tablet 20 mg PO DAILY 08/12/23 08/12/23 duloxetine 30 mg capsule,delayed 30 mg PO DAILY 08/12/23 08/12/23 release ferrous sulfate 325 mg (65 mg 325 mg PO Q OTHER DAY 08/12/23 08/12/23 iron) tablet (FeroSul) hydrocodone 10 mg-acetaminophen 1 tab PO 3XD PRN 08/12/23 08/12/23 325 mg tablet hydroxyzine HCl 25 mg tablet 25 mg PO 3XD 08/12/23 08/12/23 pramipexole 0.125 mg tablet mg PO 08/12/23 08/12/23 Previous Rx's Medication Instructions Recorded ondansetron 4 mg disintegrating 4 mg PO Q8H PRN nausea and 05/30/22 tablet vomiting #10 tabs Allergies Allergy/AdvReac Type Severity Reaction Status Date / Time lamotrigine [From LAMICTAL] Allergy Severe swelling Verified 08/12/23 14:01 lips, hands tongue Review of Systems Review of Systems Narrative: Pertinent positive and negative findings as per HPI Patient History Medical History (Updated 08/24/23 @ 23:37 by Renetta Dobson MD) Cervical spondylosis Cervicalgia Ataxia Cervical radiculopathy Hypothyroid Bipolar 1 disorder Diverticulitis Bone spur of foot Surgical History (Updated 08/24/23 @ 21:46 by Renetta Dobson MD) Gastric bypass status for obesity History of Ivania fundoplication S/P correction of deviated nasal septum H/O: hysterectomy History of carpal tunnel release History of bowel resection S/P removal of left ovary Family History Grandmother Ovarian cancer Family/Other Diabetes mellitus Social History marital status: household members: spouse occupational status: unemployed Smoking Status: Current every day smoker alcohol intake: never Smoking Status: Current every day smoker alcohol intake frequency: holidays/special occasions only Substance Use Type: does not use Exam Initial Vital Signs Initial Vital Signs: Vital Signs Temperature 98.3 F 08/24/23 19:41 Pulse Rate 95 H 08/24/23 19:41 Respiratory Rate 16 08/24/23 19:41 Blood Pressure 128/84 08/24/23 19:41 Pulse Oximetry 99 08/24/23 19:41 Oxygen Delivery Method Room Air 08/24/23 19:41 General: Healthy appearing, in acute distress. Able to give a complete and coherent history. Well-nourished well-developed HEENT: Moist mucous membranes, normal sclera with reactive pupils, Respiratory: Lungs are clear to auscultation, no wheezing no rales no rhonchi. Full and symmetrical air movement Cardiac: Regular rate and rhythm no murmurs no bruits Abdomen: Significant tenderness in the right lower quadrant with guarding and developing rebound. Palpation in the left lower quadrant and right upper quadrant as well as right flank all radiates into the right lower quadrant. Bowel tones are not appreciated. She has not significantly distended. Skin: Warm and dry, no rashes Neurologic: Grossly neurologically intact with no obvious asymmetries or abnormalities Extremities: No trauma, well perfused Psych: Cooperative, appropriate insight and affect Course Orders Ordered: ED Orders 08/24/23 19:45 Lactate (Lactic Acid) Stat 08/24/23 19:59 CT abdomen pelvis w con Stat 08/24/23 20:10 Urine Microscopic Stat Hydromorphone HCl (Hydromorphone 0.5 Mg Inj) 0.5 mg IV Q15MIN PRN PRN Reason: Pain, Last Admin: 08/24/23 21:18 Dose: 0.5 mg Documented By: Admin: 08/24/23 20:04 Dose: 0.5 mg Documented By: YUE Discontinued Medications Hydromorphone HCl (Hydromorphone 1 Mg Inj) 1 mg IM NOW ONE Stop: 08/24/23 20:39 Last Admin: 08/24/23 20:46 Dose: 1 mg Documented By: Sodium Chloride (Normal Saline 0.9%) 1,000 mls @ 1,000 mls/hr IV BOLUS ONE Stop: 08/24/23 20:57 Last Infusion: 08/24/23 21:31 Dose: Infused Documented By: Admin: 08/24/23 20:04 Dose: 1,000 mls/hr Documented By: YUE Ondansetron HCl (Ondansetron 4 Mg/2 Ml Inj) 4 mg IV NOW ONE Stop: 08/24/23 19:59 Last Admin: 08/24/23 20:04 Dose: 4 mg Documented By: YUE Vital Signs Vital signs: Vital Signs - 8 hr 08/24/23 19:41 08/24/23 19:42 08/24/23 20:00 Temperature 98.3 F Pulse Rate 95 H 89 80 Respiratory Rate 16 Blood Pressure 128/84 Pulse Oximetry 99 97 99 Oxygen Delivery Method Room Air 08/24/23 20:00 Temperature Pulse Rate Respiratory Rate Blood Pressure 133/84 Pulse Oximetry Oxygen Delivery Method Medical Decision Making Lab Data Labs: Lab Results 08/24/23 08/24/23 Range/Units 19:45 20:10 Lactate 0.7 (0.7-2.1) mmol/L Urine RBC 5-10/hpf H (0-5/HPF) Urine WBC 1-5/hpf (0-5/HPF) Ur Squamous Epith Cells 5-10 /hpf H (0-5/HPF) Urine Bacteria Moderate (10-30) H (None) Hyaline Casts 1-5/lpf (None) Ur Culture Indicated? Cult not indicated Vol Urine Centrifuged 10ml (spun) Urine Dip Bedside Urine Glucose Negative Bedside Urine Bilirubin - Negative Bedside Urine Ketone - Negative Urine Specific [place] 1.015 Bedside Urine Occult Blood +/- Bedside Urine pH 6.0 Bedside Urine Protein + 30 Bedside Urine Urobilinogen 0.2 Bedside Urine Nitrite - Negative Bedside Urine Leukocytes - Negative Esterase Point of care testing: Urine Dip Bedside Urine Glucose Negative Bedside Urine Bilirubin - Negative Bedside Urine Ketone - Negative Urine Specific [place] 1.015 Bedside Urine Occult Blood +/- Bedside Urine pH 6.0 Bedside Urine Protein + 30 Bedside Urine Urobilinogen 0.2 Bedside Urine Nitrite - Negative Bedside Urine Leukocytes - Negative Esterase Imaging Data CT scan - abdomen/pelvis: Radiologist's Impression: PROCEDURE: CT ABDOMEN PELVIS W CON INDICATIONS: 6pm onset severe RLQ abd pain TECHNIQUE: After the administration of intravenous contrast, axial sections acquired from the lung bases to the pubic symphysis. Coronal and sagittal reformats were performed. For radiation dose reduction, the following was used: automated exposure control, adjustment of mA and/or kV according to patient size. COMPARISON: [facility], CT, CT ABDOMEN PELVIS W [facility], 04/29/2022, 18:20. [facility], CT, CT ABDOMEN PELVIS W CON, 01/01/2018, 20:56. FINDINGS: Image quality: Diagnostic. Lower Chest: No significant findings. ABDOMEN: Liver: No solid mass. Gallbladder: No radiopaque gallstones or wall thickening. Biliary ducts: No biliary dilation. Pancreas: No ductal dilation. Spleen: Size is within normal limits. Adrenal Glands: No adrenal nodules. Kidneys and Ureters: No hydronephrosis. No solid mass. No complex renal cystic lesion which requires follow up. Stomach and Bowel: Stable postsurgical changes of prior gastric bypass procedure. No evidence for small bowel obstruction. There are numerous loops of fluid-filled small bowel predominantly in the right lower quadrant and mid abdomen. No significant wall thickening identified. Redemonstration of extensive colonic diverticulosis without evidence for acute diverticulitis. There is also mild circumferential wall thickening of the distal sigmoid colon stable to slightly more pronounced compared to the prior study. This may be related to degree of bowel distention. No acute inflammatory changes identified. Peritoneum: No abnormal intraperitoneal fluid. No free air. Ventral Wall: Supraumbilical fat containing ventral hernia with wall defect measuring 3.0 cm in diameter. Hernia measures approximately 6.6 x 3.3 cm in size. No acute inflammatory changes. Abdominal Nodes: No retroperitoneal or mesenteric adenopathy by size criteria. Vessels: Aorta and inferior vena cava are normal in size. PELVIS: Pelvic Organs: Unremarkable. Bladder: No bladder wall thickening, accounting for underdistention. Pelvic Nodes: No enlarged lymph nodes. Miscellaneous: No inguinal hernias are seen. Bones: No aggressive osseous abnormality. Visualized osseous structures appear intact without acute fracture or focal destructive lesion. No acute compression fractures of the imaged spine. IMPRESSION: 1. CT abdomen and pelvis without acute abnormalities. 2. Extensive colonic diverticulosis without acute diverticulitis. Redemonstration of mild wall thickening of the distal sigmoid colon. If not already accomplished, recommend outpatient screening colonoscopy to exclude possible underlying neoplastic process. 3. Numerous scattered fluid loops of small bowel in the lower abdomen which is nonspecific but may represent enteritis either infectious or inflammatory in etiology. No evidence for small bowel obstruction. 4. Supraumbilical fat containing ventral hernia without acute inflammation. 5. Stable postsurgical changes of prior gastric bypass procedure. Dictated by: Bonifacio Thornton M.D. on 08/24/2023 at 21:29 MDM Narrative Medical decision making narrative: CC: Acute onset 6:00 p.m. this evening of right lower quadrant abdominal pain Complicating co-morbidities: Patient states she had a similar presentation to this and was found to have a diverticular perforation that did not require surgery. She states she has already had her appendix out. Data collected from: patient Differential considered: Bowel perforation, volvulus, obstruction, diverticulitis Exam documented above, pertinent findings include: Significant right lower quadrant abdominal pain. Guarding, developing rebound, most comfortable in a forward leaning position obviously in pain. Heart and lungs are benign. No skin changes Lab Test results independently reviewed as above. Pertinent findings: CBC is reassuring Lactic acid is reassuring Chemistries are unremarkable Urine has red cells squamous cells and moderate bacteria. I do not think that this represents urinary tract infection. In light of the CT scan results I am not concerned for kidney stones Imaging studies independently reviewed: Numerous scattered fluid loops of small bowel in the lower abdomen which is nonspecific but may represent enteritis either infectious or inflammatory in etiology. CT scan specifically does not show bowel obstruction, diverticulitis, other intra-abdominal abscess, renal pathology or kidney stones or alternate explanation for her severe pain Treatments: Hydromorphone, Zofran, parenteral fluids Re-evaluations: Discussion: 53-year-old woman with a history of gastric bypass, currently on pain contract, severe right-sided abdominal pain unable to lay back due to the pain. CT of the abdomen does not suggest acute pathology to explain her pain. Specifically no kidney stones, intra-abdominal abscess, bowel obstruction or alternate explanation and that would require surgical consultation or hospitalization. There was a mention of mildly dilated small bowel loops that may be consistent with an enteritis. Did respond to parenteral Dilaudid. We reviewed lab work and CT scans and was shared decision-making opted to go ahead and DC home. She apparently has a follow up with [facility] tomorrow regarding some type of esophageal abnormality. I have given her a copy of today's scan to take with her for informational purposes. At this point she is safe for discharge home Discharge Plan Departure Patient Disposition: Home Clinical Impression: Abdominal pain Qualifiers: Abdominal location: generalized Qualified Code(s): R10.84 - Generalized abdominal pain Instructions: DI for Abdominal Pain-Adult Activity Restrictions/Additional Instructions: Thank you for coming in today Your blood work and CT scan were actually quite reassuring. Despite the severity of your pain, I did not find a correlating pathology on your CT scan. Specifically there is no bowel obstruction, no bowel perforation, no abscess, no reason for acute surgical intervention. The radiologist did mention some small bowel loops that were fluid-filled which sometimes can be a mild enteritis. You are given an additional dose of Dilaudid prior to discharge and you do have your chronic pain medication available at home. Please do keep your scheduled gastroenterology appointment tomorrow. If you find that you are getting worse or develop any new symptoms, please feel free to return to the emergency department for further evaluation. Prescriptions: No Action oxycodone-acetaminophen 10-325 mg tablet 1 tab PO 3XD PRN (Reason: Pain, Moderate) melatonin 5 mg Tablet 5 mg PO BEDTIME PRN (Reason: Insomnia) ondansetron 4 mg tablet,disintegrating 4 mg PO Q8H PRN (Reason: nausea and vomiting) Qty: 10 0RF levothyroxine 88 mcg tablet 88 mcg PO DAILY calcium citrate 1,040 mg tablet 1,040 mg PO DAILY cholecalciferol (vitamin D3) 50 mcg (2,000 unit) capsule 50 mcg PO DAILY cyanocobalamin (vitamin B-12) 1,000 mcg capsule 1,000 mcg PO DAILY multivitamin Tablet 1 tab PO DAILY pregabalin 100 mg capsule 100 mg PO BID hydroxyzine HCl 25 mg tablet 25 mg PO 3XD hydrocodone-acetaminophen 10-325 mg tablet 1 tab PO 3XD PRN duloxetine 30 mg capsule,delayed release(DR/EC) 30 mg PO DAILY pramipexole 0.125 mg tablet PO atorvastatin 20 mg tablet 20 mg PO DAILY ferrous sulfate [FeroSul] 325 mg (65 mg iron) tablet 325 mg PO Q OTHER DAY Referrals: Ernesto Albrecht [Primary Care Provider] - Stand Alone Forms: Patient Portal/API
--- NOTE | 2023-08-24 19:59 | DI.CT.S_ITS ---
PROCEDURE: CT ABDOMEN PELVIS W CON INDICATIONS: 6pm onset severe RLQ abd pain TECHNIQUE: After the administration of intravenous contrast, axial sections acquired from the lung bases to the pubic symphysis. Coronal and sagittal reformats were performed. For radiation dose reduction, the following was used: automated exposure control, adjustment of mA and/or kV according to patient size. COMPARISON: [facility], CT, CT ABDOMEN PELVIS W CON, 04/29/2022, 18:20. [facility], CT, CT ABDOMEN PELVIS W CON, 01/01/2018, 20:56. FINDINGS: Image quality: Diagnostic. Lower Chest: No significant findings. ABDOMEN: Liver: No solid mass. Gallbladder: No radiopaque gallstones or wall thickening. Biliary ducts: No biliary dilation. Pancreas: No ductal dilation. Spleen: Size is within normal limits. Adrenal Glands: No adrenal nodules. Kidneys and Ureters: No hydronephrosis. No solid mass. No complex renal cystic lesion which requires follow up. Stomach and Bowel: Stable postsurgical changes of prior gastric bypass procedure. No evidence for small bowel obstruction. There are numerous loops of fluid-filled small bowel predominantly in the right lower quadrant and mid abdomen. No significant wall thickening identified. Redemonstration of extensive colonic diverticulosis without evidence for acute diverticulitis. There is also mild circumferential wall thickening of the distal sigmoid colon stable to slightly more pronounced compared to the prior study. This may be related to degree of bowel distention. No acute inflammatory changes identified. Peritoneum: No abnormal intraperitoneal fluid. No free air. Ventral Wall: Supraumbilical fat containing ventral hernia with wall defect measuring 3.0 cm in diameter. Hernia measures approximately 6.6 x 3.3 cm in size. No acute inflammatory changes. Abdominal Nodes: No retroperitoneal or mesenteric adenopathy by size criteria. Vessels: Aorta and inferior vena cava are normal in size. PELVIS: Pelvic Organs: Unremarkable. Bladder: No bladder wall thickening, accounting for underdistention. Pelvic Nodes: No enlarged lymph nodes. Miscellaneous: No inguinal hernias are seen. Bones: No aggressive osseous abnormality. Visualized osseous structures appear intact without acute fracture or focal destructive lesion. No acute compression fractures of the imaged spine. IMPRESSION: 1. CT abdomen and pelvis without acute abnormalities. 2. Extensive colonic diverticulosis without acute diverticulitis. Redemonstration of mild wall thickening of the distal sigmoid colon. If not already accomplished, recommend outpatient screening colonoscopy to exclude possible underlying neoplastic process. 3. Numerous scattered fluid loops of small bowel in the lower abdomen which is nonspecific but may represent enteritis either infectious or inflammatory in etiology. No evidence for small bowel obstruction. 4. Supraumbilical fat containing ventral hernia without acute inflammation. 5. Stable postsurgical changes of prior gastric bypass procedure. Dictated by: Bonifacio Thornton M.D. on 08/24/2023 at 21:29 Approved by: Bonifacio Thornton M.D. on 08/24/2023 at 21:35
[2023-08-24] MEDS: ONDANSETRON 4 MG/2 ML INJ IV (20:04)
[2023-08-24] MEDS: HYDROMORPHONE 0.5 MG INJ IV ×3 (20:04→22:13)
[2023-08-24] MEDS: SODIUM CHLORIDE 0.9% 1,000 ML 1000 ML IV (20:04)
[2023-08-24 20:12] LABS: Lactate (Lactic Acid) 0.7 mmol/L (0.7-2.1)
[2023-08-24 20:40] LABS: RBC Urine 5-10/HPF (0-5/HPF); Urine Volume 10mL (spun)
[2023-08-24 20:41] LABS: Bacteria Urine Moderate (10-30); Culture Indicated Urine Cult Not Indicated; Hyaline Casts Urine 1-5/LPF; Squamous Epithelial Cell Urine 5-10 /HPF (0-5/HPF); WBC Urine 1-5/HPF (0-5/HPF)
[2023-08-24] MEDS: HYDROMORPHONE 1 MG INJ IM (20:46)
[2023-08-24 21:56] LABS: Add Manual Diff / Slide Review NO; Basophils Absolute Auto 0 /uL (0-100); Basophils Percent Auto 0.5 % (0-2); Eosinophils Absolute Auto 200 /uL (0-450); Eosinophils Percent Auto 1.9 % (2-4); Hematocrit 40.6 % (36-46); Hemoglobin 13.7 g/dL (12.0-16.0); Lymphocytes Absolute Auto 3200 /uL (1100-4500); Lymphocytes Percent Auto 35.4 % (25-40); Mean Corpuscular HGB Conc 33.7 % (30-36); Mean Corpuscular Hemoglobin 29.6 PG (26-34); Monocytes Absolute Auto 600 /uL (0-900); Monocytes Percent Auto 6.8 % (3-14); Neutrophils Absolute Auto 5000 /uL (1500-7000); Neutrophils Percent Auto 55.4 % (50-75); Platelet Count 184 X10^3/uL (150-400); Red Blood Cell Count 4.62 X10^6/uL (4.0-5.2); Red Cell Distribution Width 19.7 % (11.6-14.8); White Blood Cell Count 8.9 X10^3/uL (4.5-11.0)
[2023-08-24 22:02] LABS: Alanine Aminotransferase 23 IU/L (<35); Albumin 4.1 g/dL (3.5-5.0); Albumin Globulin Ratio 1.5 (1.0-2.8); Alkaline Phosphatase 125 U/L (38-126); Aspartate Aminotransferase 41 IU/L (14-36); Bilirubin Total 0.6 mg/dL (0.2-1.3); Blood Urea Nitrogen 15 mg/dL (7-17); Calcium 8.9 mg/dL (8.4-10.2); Carbon Dioxide 27 mmol/L (22-32); Chloride 108 mmol/L (98-107); Estimated Glomerular Filt Rate > 60 mL/min (>60); Globulin 2.7 g/dL (1.7-4.1); Glucose 87 mg/dL (70-100); HEMOLYSIS < 15 (0-50); Lipase 186 U/L (23-300); Potassium 4.4 mmol/L (3.4-5.1); Sodium 140 mmol/L (137-145); Total Protein 6.8 g/dL (6.3-8.2)
[2023-08-24] MEDS: HYDROMORPHONE 1 MG INJ IV (23:49)
[2023-08-25 00:13] VITALS: BP 122/88; PULSE 69; RESP 18; O2SAT 98
== END 2023-08-25 00:14 | disposition home or self-care (01) ==
PROVIDERS: Emergency Provider Emergency Medicine; Family Provider Internal Medicine; PCP Internal Medicine
DX: R10.31 Right lower quadrant pain (principal)
CPT/HCPCS: 74177; 80053; 81003; 81015; 83605; 83690; 85025; 96372; 96374; 96375; 96376; 99283; 99284; J1170; J2405; Q9967

== ENCOUNTER 2023-10-16 11:19 | Emergency (ER) | payer OTHER, MEDICAID, SELFPAY ==
[2022-09-25 11:17] VITALS: BMI 26.1
[2023-10-16 11:28] VITALS: BP 132/77; PULSE 61; RESP 16; TEMP 37.1; O2SAT 99; BMI 30.9
--- NOTE | 2023-10-16 11:59 | ED_ITS ---
HPI - Neck Pain/Injury General Chief Complaint: Neck Pain/Injury Stated Complaint: Severe pain in neck. both arms are numb Time Seen by Provider: 10/16/23 11:54 Source: patient Mode of arrival: Ambulatory Limitations: no limitations History of Present Illness HPI Narrative: Patient is a 53-year-old female here for evaluation of pain in her upper back/neck. She states it does hurt both sides but right is definitely worse in the left. She was also getting tingling down both of her arms. Pain has been present for the past 4 days. No trauma. No skin changes. Related Data Home Medications Medication Instructions Recorded Confirmed levothyroxine 88 mcg tablet 88 mcg PO DAILY 05/26/22 08/12/23 pregabalin 100 mg capsule 100 mg PO BID 07/28/22 08/12/23 calcium citrate 1,040 mg tablet 1,040 mg PO DAILY 09/29/22 08/12/23 cholecalciferol (vitamin D3) 50 50 mcg PO DAILY 09/29/22 08/12/23 mcg (2,000 unit) capsule cyanocobalamin (vitamin B-12) 1,000 mcg PO DAILY 09/29/22 08/12/23 1,000 mcg capsule multivitamin 1 tab PO DAILY 09/29/22 08/12/23 melatonin 5 mg tablet 5 mg PO BEDTIME PRN Insomnia 05/02/23 08/12/23 oxycodone-acetaminophen 10 mg-325 1 tab PO 3XD PRN Pain, Moderate 05/02/23 08/12/23 mg tablet atorvastatin 20 mg tablet 20 mg PO DAILY 08/12/23 08/12/23 duloxetine 30 mg capsule,delayed 30 mg PO DAILY 08/12/23 08/12/23 release ferrous sulfate 325 mg (65 mg 325 mg PO Q OTHER DAY 08/12/23 08/12/23 iron) tablet (FeroSul) hydrocodone 10 mg-acetaminophen 1 tab PO 3XD PRN 08/12/23 08/12/23 325 mg tablet hydroxyzine HCl 25 mg tablet 25 mg PO 3XD 08/12/23 08/12/23 pramipexole 0.125 mg tablet mg PO 08/12/23 08/12/23 Previous Rx's Medication Instructions Recorded ondansetron 4 mg disintegrating 4 mg PO Q8H PRN nausea and 03/25/23 tablet vomiting #10 tabs cyclobenzaprine 10 mg tablet 10 mg PO TID PRN muscle spasm #20 10/16/23 tabs Allergies Allergy/AdvReac Type Severity Reaction Status Date / Time lamotrigine [From LAMICTAL] Allergy Severe swelling Verified 10/16/23 11:28 lips, hands tongue Review of Systems Review of Systems Narrative: See HPI Patient History Medical History Cervical spondylosis Cervicalgia Ataxia Cervical radiculopathy Hypothyroid Bipolar 1 disorder Diverticulitis Bone spur of foot Surgical History (Updated 08/24/23 @ 21:46 by Renetta Dobson MD) Gastric bypass status for obesity History of Ivania fundoplication S/P correction of deviated nasal septum H/O: hysterectomy History of carpal tunnel release History of bowel resection S/P removal of left ovary Family History Grandmother Ovarian cancer Family/Other Diabetes mellitus Social History marital status: household members: spouse occupational status: unemployed Smoking Status: Current every day smoker alcohol intake: never Smoking Status: Current every day smoker alcohol intake frequency: holidays/special occasions only Substance Use Type: does not use Exam Initial Vital Signs Initial Vital Signs: Vital Signs Temperature 98.7 F 10/16/23 11:28 Pulse Rate 61 10/16/23 11:28 Respiratory Rate 16 10/16/23 11:28 Blood Pressure 132/77 10/16/23 11:28 Pulse Oximetry 99 10/16/23 11:28 Oxygen Delivery Method Room Air 10/16/23 11:28 Back/Spine/Pelvis Cervical Spine: cervical muscular tenderness and No cervical spinal tenderness Thoracic/Lumbar Spine: paraspinal tenderness (Right-sided thoracic paraspinal), No thoracic spinal tenderness and No lumbar spinal tenderness Skin General: no rashes or lesions noted Neuro General: patient alert, patient awake and moves all extremities Course Orders Ordered: Hydrocodone Bitart/Acetaminophen (Hydrocodone/Acet 5/325 Tablet) 1 tab PO NOW ONE Stop: 10/16/23 12:00 Cyclobenzaprine HCl (Cyclobenzaprine 10 Mg Tablet) 10 mg PO NOW ONE Stop: 10/16/23 12:00 Ketorolac Tromethamine (Ketorolac 30 Mg/Ml Vial) 30 mg IM NOW ONE Stop: 10/16/23 12:00 Vital Signs Vital signs: Vital Signs - 8 hr 10/16/23 11:28 Temperature 98.7 F Pulse Rate 61 Respiratory Rate 16 Blood Pressure 132/77 Pulse Oximetry 99 Oxygen Delivery Method Room Air MDM - Neck Pain/Injury MDM Narrative Medical decision making narrative: Patient clearly has a cervical/thoracic muscle spasm with right being greater than left. I suspect that the radiculopathy she was having is because of the spasms in the irritation of the cervical spinal nerves. Will treat symptomatically for now. Discussed return precautions and follow-up instructions. She expressed understanding and agreement. Discharge Plan Departure Patient Disposition: Home Clinical Impression: Spasm of thoracic back muscle Instructions: DI for Muscle Spasm Activity Restrictions/Additional Instructions: Use the muscle relaxers as directed. This medication can make you somewhat drowsy. Also recommend that you continue to use other conservative measures such as light stretching and massage. Contact your primary doctor for follow- up. Prescriptions: New cyclobenzaprine 10 mg tablet 10 mg PO TID PRN (Reason: muscle spasm) Qty: 20 0RF No Action oxycodone-acetaminophen 10-325 mg tablet 1 tab PO 3XD PRN (Reason: Pain, Moderate) melatonin 5 mg Tablet 5 mg PO BEDTIME PRN (Reason: Insomnia) ondansetron 4 mg tablet,disintegrating 4 mg PO Q8H PRN (Reason: nausea and vomiting) Qty: 10 0RF levothyroxine 88 mcg tablet 88 mcg PO DAILY calcium citrate 1,040 mg tablet 1,040 mg PO DAILY cholecalciferol (vitamin D3) 50 mcg (2,000 unit) capsule 50 mcg PO DAILY cyanocobalamin (vitamin B-12) 1,000 mcg capsule 1,000 mcg PO DAILY multivitamin Tablet 1 tab PO DAILY pregabalin 100 mg capsule 100 mg PO BID hydroxyzine HCl 25 mg tablet 25 mg PO 3XD hydrocodone-acetaminophen 10-325 mg tablet 1 tab PO 3XD PRN duloxetine 30 mg capsule,delayed release(DR/EC) 30 mg PO DAILY pramipexole 0.125 mg tablet PO atorvastatin 20 mg tablet 20 mg PO DAILY ferrous sulfate [FeroSul] 325 mg (65 mg iron) tablet 325 mg PO Q OTHER DAY Referrals: Ernesto Albrecht [Primary Care Provider] - Stand Alone Forms: Patient Portal/API
[2023-10-16] MEDS: HYDROCODONE/ACET 5/325 TABLET 1 TAB PO (12:13)
[2023-10-16] MEDS: KETOROLAC 30 MG/ML VIAL IM (12:13)
[2023-10-16] MEDS: CYCLOBENZAPRINE 10 MG TABLET PO (12:13)
[2023-10-16 12:20] VITALS: BP 125/85; PULSE 69; RESP 16; O2SAT 96
--- NOTE | 2023-10-16 12:21 | PC.NURSE ---
neck pain radiating down bilateral arms w/ associated numbness; pt states this has happened in the past. Pt states she usually has a pain of 6/10 but lately has been 10/10. Discussed w/ pt home remedies for pain management (stretching, proper body mechanics, etc.)
== END 2023-10-16 12:21 | disposition home or self-care (01) ==
PROVIDERS: Emergency Provider Emergency Medicine; Family Provider Internal Medicine; PCP Internal Medicine
DX: M62.830 Muscle spasm of back (principal)
CPT/HCPCS: 96372; 99283; J1885

== ENCOUNTER 2023-10-29 20:13 | Emergency (ER) | payer OTHER, MEDICAID, SELFPAY ==
[2022-09-25 11:17] VITALS: BMI 26.1
[2023-10-29] VITALS (9 sets, daily range): BP systolic 103–113; BP diastolic 63–74; PULSE 72–95; RESP 14–20; TEMP 36.4–36.6; O2SAT 93–97
--- NOTE | 2023-10-29 20:28 | ED.ABDPAIN ---
HPI - Abdominal Pain General Chief Complaint: Abdominal Pain Stated Complaint: hernia, extreme pain Time Seen by Provider: 10/29/23 20:19 History of Present Illness HPI narrative: 53-year-old female with history of GERD, anemia, anxiety, depression, previous history of gastric bypass surgery, previous history of failed Ivania fundoplication, chronic pain presents by private vehicle from home for abdominal pain with vomiting. Patient states that she has a ventral hernia and while coughing this afternoon she felt it pop out. Reports severe pain in her abdomen. Patient was seen and evaluated for same complaint on 10/20/2023 at [facility]. Patient states that her workup at that time was reassuring and she was discharged with instructions to follow up with her primary care doctor. She states that her primary care doctor referred her to General surgery and Gastroenterology, but she is still waiting for those appointments. Patient's at bedside states that patient vomits daily, and the previous Ivania fundoplication procedure at [facility] was supposed to help with the vomiting, but it did not work. Related Data Home Medications Medication Instructions Recorded Confirmed levothyroxine 88 mcg tablet 88 mcg PO DAILY 05/26/22 08/12/23 pregabalin 100 mg capsule 100 mg PO BID 07/28/22 08/12/23 calcium citrate 1,040 mg tablet 1,040 mg PO DAILY 09/29/22 08/12/23 cholecalciferol (vitamin D3) 50 50 mcg PO DAILY 09/29/22 08/12/23 mcg (2,000 unit) capsule cyanocobalamin (vitamin B-12) 1,000 mcg PO DAILY 09/29/22 08/12/23 1,000 mcg capsule multivitamin 1 tab PO DAILY 09/29/22 08/12/23 melatonin 5 mg tablet 5 mg PO BEDTIME PRN Insomnia 05/02/23 08/12/23 oxycodone-acetaminophen 10 mg-325 1 tab PO 3XD PRN Pain, Moderate 05/02/23 08/12/23 mg tablet atorvastatin 20 mg tablet 20 mg PO DAILY 08/12/23 08/12/23 duloxetine 30 mg capsule,delayed 30 mg PO DAILY 08/12/23 08/12/23 release ferrous sulfate 325 mg (65 mg 325 mg PO Q OTHER DAY 08/12/23 08/12/23 iron) tablet (FeroSul) hydrocodone 10 mg-acetaminophen 1 tab PO 3XD PRN 08/12/23 08/12/23 325 mg tablet hydroxyzine HCl 25 mg tablet 25 mg PO 3XD 08/12/23 08/12/23 pramipexole 0.125 mg tablet mg PO 08/12/23 08/12/23 Previous Rx's Medication Instructions Recorded ondansetron 4 mg disintegrating 4 mg PO Q8H PRN nausea and 05/30/22 tablet vomiting #10 tabs cyclobenzaprine 10 mg tablet 10 mg PO TID PRN muscle spasm #20 10/16/23 tabs Allergies Allergy/AdvReac Type Severity Reaction Status Date / Time lamotrigine [From LAMICTAL] Allergy Severe swelling Verified 10/16/23 11:28 lips, hands tongue Patient History Medical History Cervical spondylosis Cervicalgia Ataxia Cervical radiculopathy Hypothyroid Bipolar 1 disorder Diverticulitis Bone spur of foot Surgical History Gastric bypass status for obesity History of Ivania fundoplication S/P correction of deviated nasal septum H/O: hysterectomy History of carpal tunnel release History of bowel resection S/P removal of left ovary Family History Grandmother Ovarian cancer Family/Other Diabetes mellitus Social History marital status: household members: spouse occupational status: unemployed Smoking Status: Current every day smoker alcohol intake: never Smoking Status: Current every day smoker alcohol intake frequency: holidays/special occasions only Substance Use Type: does not use Exam Initial Vital Signs Initial Vital Signs: Vital Signs Pulse Rate 95 H 10/29/23 20:22 Pulse Oximetry 94 10/29/23 20:22 Const: Awake, alert, sitting upright in stretcher, no acute distress Cardiac: regular rate, regular rhythm RESP: unlabored, clear bilaterally, no wheezing GI: Soft, generalized tenderness to palpation, no rebound, no guarding, fist-sized ventral hernia (soft) MSK: Atraumatic, full range of motion, pulses equal Skin: Warm, Dry, intact, no rashes Neuro: AO x3, CN II-XII grossly intact, moves all extremities Course Orders Ordered: ED Orders 10/29/23 20:43 CBC Auto Diff [Complete Blood Count AUTO DIFF] Stat CMP [Comprehensive Metabolic Panel] Stat Lactate (Lactic Acid) Stat 10/29/23 20:52 CT abdomen pelvis w con Stat Discontinued Medications Droperidol (Droperidol 5 Mg/2 Ml Vial) 2.5 mg IV NOW ONE Stop: 10/29/23 21:52 Last Admin: 10/29/23 21:57 Dose: 2.5 mg Documented By: PREET Hydromorphone HCl (Hydromorphone 1 Mg Inj) 1 mg IV NOW ONE Stop: 10/29/23 20:53 Last Admin: 10/29/23 21:04 Dose: 1 mg Documented By: PREET Ondansetron HCl (Ondansetron 4 Mg/2 Ml Inj) 4 mg IV NOW ONE Stop: 10/29/23 20:53 Last Admin: 10/29/23 21:04 Dose: 4 mg Documented By: PREET Vital Signs Vital signs: Vital Signs - 8 hr 10/29/23 20:22 10/29/23 20:24 10/29/23 20:30 Temperature 97.8 F Pulse Rate 95 H 93 H Respiratory Rate 20 Blood Pressure 113/74 104/63 Pulse Oximetry 94 94 Oxygen Delivery Method Room Air 10/29/23 20:30 10/29/23 21:00 10/29/23 21:00 Temperature Pulse Rate 89 77 Respiratory Rate Blood Pressure 103/66 Pulse Oximetry 93 93 Oxygen Delivery Method 10/29/23 21:24 10/29/23 21:24 10/29/23 21:30 Temperature Pulse Rate 84 Respiratory Rate Blood Pressure 108/70 106/70 Pulse Oximetry 96 Oxygen Delivery Method 10/29/23 21:30 10/29/23 22:00 10/29/23 22:30 Temperature Pulse Rate 81 86 73 Respiratory Rate Blood Pressure Pulse Oximetry 96 96 97 Oxygen Delivery Method 10/29/23 23:00 Temperature 97.6 F Pulse Rate 72 Respiratory Rate 14 Blood Pressure 106/70 Pulse Oximetry 96 Oxygen Delivery Method Room Air MDM - Abdominal Pain Differential Diagnosis Differential diagnosis: Likely abdominal pain, constipation, pancreatitis and small bowel obstruction Lab Data 10/29/23 20:43 10/29/23 20:43 Labs: Lab Results 08/23/24 Range/Units 20:43 WBC 8.1 (4.5-11.0) X10^3/uL RBC 4.45 (4.0-5.2) X10^6/uL Hgb 13.2 (12.0-16.0) g/dL Hct 39.4 (36-46) % MCV 88.6 (80-100) fL MCH 29.7 (26-34) PG MCHC 33.6 (30-36) % RDW 15.5 H (11.6-14.8) % Plt Count 192 (150-400) X10^3/uL Neut % (Auto) 62.2 (50-75) % Lymph % (Auto) 28.8 (25-40) % Crosby % (Auto) 6.9 (3-14) % Eos % (Auto) 1.4 L (2-4) % Baso % (Auto) 0.7 (0-2) % Neut # (Auto) 5000 (4989-2992) /uL Lymph # (Auto) 2300 (3183-1239) /uL Crosby # (Auto) 600 (0-900) /uL Eos # (Auto) 100 (0-450) /uL Baso # (Auto) 100 (0-100) /uL Sodium 138 (137-145) mmol/L Potassium 4.4 (3.4-5.1) mmol/L Chloride 107 (98-107) mmol/L Carbon Dioxide 25 (22-32) mmol/L BUN 10 (7-17) mg/dL Creatinine 0.70 (0.52-1.04) mg/dL Estimated GFR > 60 (>60) mL/min BUN/Creatinine Ratio 14.3 (6-22) Glucose 92 (70-100) mg/dL Lactate 0.6 L (0.7-2.1) mmol/L Calcium 8.7 (8.4-10.2) mg/dL Total Bilirubin 0.5 (0.2-1.3) mg/dL AST 25 (14-36) IU/L ALT 19 (<35) IU/L Alkaline Phosphatase 114 (38-126) U/L Total Protein 6.7 (6.3-8.2) g/dL Albumin 3.7 (3.5-5.0) g/dL Globulin 3.0 (1.7-4.1) g/dL Albumin/Globulin Ratio 1.2 (1.0-2.8) Imaging Data CT scan - abdomen/pelvis: Radiologist's Impression: PROCEDURE: CT ABDOMEN PELVIS W CON INDICATIONS: PERIUMBILICAL PAIN, VOMITING, HX VENTRAL HERNIA TECHNIQUE: After the administration of intravenous contrast, axial sections acquired from the lung bases to the pubic symphysis. Coronal and sagittal reformats were performed. For radiation dose reduction, the following was used: automated exposure control, adjustment of mA and/or kV according to patient size. COMPARISON: [facility], CT, CT ABDOMEN PELVIS W CON, 08/24/2023, 20:20. FINDINGS: Image quality: Diagnostic. Lower Chest: No significant findings. ABDOMEN: Liver: No solid mass. Gallbladder: No radiopaque gallstones or wall thickening. Biliary ducts: No biliary dilation. Pancreas: No ductal dilation. Spleen: Size is within normal limits. Adrenal Glands: No adrenal nodules. Kidneys and Ureters: No hydronephrosis. No solid mass. No complex renal cystic lesion which requires follow up. Stomach and Bowel: Small hiatal hernia. Stable postoperative changes from gastric bypass. Normal colonic caliber, without significant wall thickening. Diverticulosis without evidence of acute diverticulitis. Mild wall thickening of the sigmoid colon is redemonstrated, appears more pronounced than prior, likely secondary to decompressed loops of bowel. No surrounding inflammatory changes. Fluid-filled prominent loops of small bowel within the mid and right lower abdomen are similar to prior. Peritoneum: No abnormal intraperitoneal fluid. No free air. Ventral Wall: Similar appearance of ventral abdominal hernia with fascial defect measuring approximately 3 cm and hernia sac measuring approximately 6.8 x 3.3 cm. No inflammatory changes are seen within or around the hernia. Abdominal Nodes: No retroperitoneal or mesenteric adenopathy by size criteria. Vessels: Aorta and inferior vena cava are normal in size. PELVIS: Pelvic Organs: Unremarkable. Bladder: No bladder wall thickening, accounting for underdistention. Pelvic Nodes: No enlarged lymph nodes. Miscellaneous: No inguinal hernias are seen. Bones: No aggressive osseous abnormality. IMPRESSION: 1. No acute findings to explain patient's symptoms. No significant change in ventral abdominal hernia containing fat. No inflammatory changes. 2. Redemonstration of diverticulosis without evidence of acute diverticulitis. Wall thickening of the sigmoid colon is redemonstrated, appears mildly more pronounced than prior which is likely secondary to decompression of the colon. 3. Similar appearance of prominent fluid-filled loops of small bowel within the lower abdomen. Nonspecific, correlate for enteritis. No evidence of bowel obstruction. Dictated by: Iggy Yung M.D. on 10/29/2023 at 21:21 Approved by: Iggy Yung M.D. on 10/29/2023 at 21:29 [facility] Narrative Medical decision making narrative: Patient presenting for severe pain in her abdomen following coughing, history of ventral hernia. Patient was concerned that the hernia may be causing her symptoms. Abdomen is soft but she was generally tender to palpation. Pain medications ordered. Records reviewed from outside hospital showed unremarkable workup and normal CT scan. Since patient's pain is reportedly worsened repeat imaging will be obtained at our hospital. Laboratory work, pain medications ordered. Laboratory work is reviewed, no abnormalities identified. WBC count 8.1, hemoglobin 13.2, platelets 192, lactic acid 0.6, sodium 138, potassium 4.4, creatinine 0.7. CT of the abdomen and pelvis shows no acute findings to explain patient's pain. Reading is similar to report from outside hospital as well as CT obtained in August of 2023 at [facility]. Pain not changed with Dilaudid, after receiving droperidol patient reassessed and found to be sleeping soundly and in fact snoring in the ED bed. Patient was given an abdominal binder to help brace in case of vomiting or other abdominal strain. Patient again counseled on the importance of following up with surgery and GI. She already has referrals at [facility], but they requested more local referrals, and numbers were provided to patient and her . Discharge Plan Departure Patient Disposition: Home Clinical Impression: Ventral hernia, Abdominal pain Instructions: DI for Ventral Hernia Activity Restrictions/Additional Instructions: Your laboratory work today did not show any evidence of inflammation or infection. Your CT scan showed that you have a fat containing ventral hernia, but no evidence that this hernia is in danger of being choked off or causing harm. Wear the abdominal binder during activities to help keep your abdomen braced. Do not lift heavy objects more than 10-15 lb. Make sure that you follow up with your surgeon and GI doctor as instructed by primary care doctor. Additional referral numbers are in your paperwork for a surgeon and GI doctor Prescriptions: No Action oxycodone-acetaminophen 10-325 mg tablet 1 tab PO 3XD PRN (Reason: Pain, Moderate) melatonin 5 mg Tablet 5 mg PO BEDTIME PRN (Reason: Insomnia) cyclobenzaprine 10 mg tablet 10 mg PO TID PRN (Reason: muscle spasm) Qty: 20 0RF ondansetron 4 mg tablet,disintegrating 4 mg PO Q8H PRN (Reason: nausea and vomiting) Qty: 10 0RF levothyroxine 88 mcg tablet 88 mcg PO DAILY calcium citrate 1,040 mg tablet 1,040 mg PO DAILY cholecalciferol (vitamin D3) 50 mcg (2,000 unit) capsule 50 mcg PO DAILY cyanocobalamin (vitamin B-12) 1,000 mcg capsule 1,000 mcg PO DAILY multivitamin Tablet 1 tab PO DAILY pregabalin 100 mg capsule 100 mg PO BID hydroxyzine HCl 25 mg tablet 25 mg PO 3XD hydrocodone-acetaminophen 10-325 mg tablet 1 tab PO 3XD PRN duloxetine 30 mg capsule,delayed release(DR/EC) 30 mg PO DAILY pramipexole 0.125 mg tablet PO atorvastatin 20 mg tablet 20 mg PO DAILY ferrous sulfate [FeroSul] 325 mg (65 mg iron) tablet 325 mg PO Q OTHER DAY Referrals: Brady Lozoya MD [Non-Staff] - Carolyne Rodarte MD [Physician] - Ernesto Albrecht [Primary Care Provider] - Stand Alone Forms: Patient Portal/API
--- NOTE | 2023-10-29 20:52 | DI.CT.S_ITS ---
PROCEDURE: CT ABDOMEN PELVIS W CON INDICATIONS: PERIUMBILICAL PAIN, VOMITING, HX VENTRAL HERNIA TECHNIQUE: After the administration of intravenous contrast, axial sections acquired from the lung bases to the pubic symphysis. Coronal and sagittal reformats were performed. For radiation dose reduction, the following was used: automated exposure control, adjustment of mA and/or kV according to patient size. COMPARISON: [facility], CT, CT ABDOMEN PELVIS W CON, 08/24/2023, 20:20. FINDINGS: Image quality: Diagnostic. Lower Chest: No significant findings. ABDOMEN: Liver: No solid mass. Gallbladder: No radiopaque gallstones or wall thickening. Biliary ducts: No biliary dilation. Pancreas: No ductal dilation. Spleen: Size is within normal limits. Adrenal Glands: No adrenal nodules. Kidneys and Ureters: No hydronephrosis. No solid mass. No complex renal cystic lesion which requires follow up. Stomach and Bowel: Small hiatal hernia. Stable postoperative changes from gastric bypass. Normal colonic caliber, without significant wall thickening. Diverticulosis without evidence of acute diverticulitis. Mild wall thickening of the sigmoid colon is redemonstrated, appears more pronounced than prior, likely secondary to decompressed loops of bowel. No surrounding inflammatory changes. Fluid-filled prominent loops of small bowel within the mid and right lower abdomen are similar to prior. Peritoneum: No abnormal intraperitoneal fluid. No free air. Ventral Wall: Similar appearance of ventral abdominal hernia with fascial defect measuring approximately 3 cm and hernia sac measuring approximately 6.8 x 3.3 cm. No inflammatory changes are seen within or around the hernia. Abdominal Nodes: No retroperitoneal or mesenteric adenopathy by size criteria. Vessels: Aorta and inferior vena cava are normal in size. PELVIS: Pelvic Organs: Unremarkable. Bladder: No bladder wall thickening, accounting for underdistention. Pelvic Nodes: No enlarged lymph nodes. Miscellaneous: No inguinal hernias are seen. Bones: No aggressive osseous abnormality. IMPRESSION: 1. No acute findings to explain patient's symptoms. No significant change in ventral abdominal hernia containing fat. No inflammatory changes. 2. Redemonstration of diverticulosis without evidence of acute diverticulitis. Wall thickening of the sigmoid colon is redemonstrated, appears mildly more pronounced than prior which is likely secondary to decompression of the colon. 3. Similar appearance of prominent fluid-filled loops of small bowel within the lower abdomen. Nonspecific, correlate for enteritis. No evidence of bowel obstruction. Dictated by: Iggy Yung M.D. on 10/29/2023 at 21:21 Approved by: Iggy Yung M.D. on 10/29/2023 at 21:29
[2023-10-29 20:53] LABS: Add Manual Diff / Slide Review NO; Basophils Absolute Auto 100 /uL (0-100); Basophils Percent Auto 0.7 % (0-2); Eosinophils Absolute Auto 100 /uL (0-450); Eosinophils Percent Auto 1.4 % (2-4); Hematocrit 39.4 % (36-46); Hemoglobin 13.2 g/dL (12.0-16.0); Lymphocytes Absolute Auto 2300 /uL (1100-4500); Lymphocytes Percent Auto 28.8 % (25-40); Mean Corpuscular HGB Conc 33.6 % (30-36); Mean Corpuscular Hemoglobin 29.7 PG (26-34); Mean Corpuscular Volume 88.6 fL (80-100); Monocytes Absolute Auto 600 /uL (0-900); Monocytes Percent Auto 6.9 % (3-14); Neutrophils Absolute Auto 5000 /uL (1500-7000); Neutrophils Percent Auto 62.2 % (50-75); Platelet Count 192 X10^3/uL (150-400); Red Blood Cell Count 4.45 X10^6/uL (4.0-5.2); Red Cell Distribution Width 15.5 % (11.6-14.8); White Blood Cell Count 8.1 X10^3/uL (4.5-11.0)
[2023-10-29 21:04] LABS: Alanine Aminotransferase 19 IU/L (<35); Albumin 3.7 g/dL (3.5-5.0); Albumin Globulin Ratio 1.2 (1.0-2.8); Alkaline Phosphatase 114 U/L (38-126); Aspartate Aminotransferase 25 IU/L (14-36); BUN Creatinine Ratio 14.3 (6-22); Bilirubin Total 0.5 mg/dL (0.2-1.3); Blood Urea Nitrogen 10 mg/dL (7-17); Calcium 8.7 mg/dL (8.4-10.2); Carbon Dioxide 25 mmol/L (22-32); Chloride 107 mmol/L (98-107); Estimated Glomerular Filt Rate > 60 mL/min (>60); Glucose 92 mg/dL (70-100); HEMOLYSIS < 15 (0-50); Lactate (Lactic Acid) 0.6 mmol/L (0.7-2.1); Potassium 4.4 mmol/L (3.4-5.1); Sodium 138 mmol/L (137-145); Total Protein 6.7 g/dL (6.3-8.2)
[2023-10-29] MEDS: HYDROMORPHONE 1 MG INJ IV (21:04)
[2023-10-29] MEDS: ONDANSETRON 4 MG/2 ML INJ IV (21:04)
[2023-10-29] MEDS: DROPERIDOL 5 MG/2 ML VIAL 2.5 MG IV (21:57)
== END 2023-10-29 23:23 | disposition home or self-care (01) ==
PROVIDERS: Emergency Provider Emergency Medicine; Family Provider Internal Medicine; PCP Internal Medicine
DX: K43.9 Ventral hernia without obstruction or gangrene (principal); R10.9 Unspecified abdominal pain
CPT/HCPCS: 36415; 74177; 80053; 83605; 85025; 96374; 96375; 99284; J1170; J1790; J2405; Q9967

== ENCOUNTER 2023-12-03 15:33 | Emergency (ER) | payer OTHER, MEDICAID, SELFPAY ==
[2022-09-25 11:17] VITALS: BMI 26.1
[2023-12-03 15:36] VITALS: BP 120/83; PULSE 122; RESP 16; TEMP 36.9; O2SAT 96; BMI 30.2
--- NOTE | 2023-12-03 15:47 | ED_ITS ---
HPI - Back Pain/Injury <Shauna Morgan PA-C - Last Filed: 12/04/23 10:38> General Chief Complaint: Back Pain/Injury Stated Complaint: lower back pain Time Seen by Provider: 12/03/23 15:47 History of Present Illness HPI Narrative: Patient is a 53-year-old female that presents to the emergency room department today with her . Patient has a longstanding history of chronic pain, chronic neck pain currently under the care of a physical therapist. Currently has hydrocodone at home, currently has a muscle relaxer home. Who presents now to the emergency department with exacerbation of ongoing back pain since Wednesday. With no injury. Attempted to get into her primary care doctor who was unable to see her and told her to go to the emergency room department. Has been referred for chronic pain unfortunately her insurance will not pay for chronic pain evaluation. Patient now complaining of increasing lower lumbar pain and discomfort, now having difficulty holding her urine. No radiculopathy. All in the lower back. Worsening positioned sitting, standing, bending, straightening the legs. Only position of comfort is lying flat. The medications that she currently has at home is not controlling any of her pain. Patient has difficulty ambulating. Recent yeast infection, was able to give us a urine. Patient states that she is able to go to the bathroom, however now she is having difficulty holding her urine. Has been incontinent 3 times this week. Patient states she is constipated, currently taking MiraLax. Has had gastric bypass surgery. Constipation has not new, currently attempting to treated with [id number] supportive therapy. Patient denies recent injury, trauma or fall. Patient recently seen at [facility] recently had x-rays of her lower lumbar which showed age-related changes, multilevel disc disease, and sacroililitis bilaterally. Related Data Home Medications Medication Instructions Recorded Confirmed levothyroxine 88 mcg tablet 88 mcg PO DAILY 05/26/22 08/12/23 pregabalin 100 mg capsule 100 mg PO BID 07/28/22 08/12/23 calcium citrate 1,040 mg tablet 1,040 mg PO DAILY 09/29/22 08/12/23 cholecalciferol (vitamin D3) 50 50 mcg PO DAILY 09/29/22 08/12/23 mcg (2,000 unit) capsule cyanocobalamin (vitamin B-12) 1,000 mcg PO DAILY 09/29/22 08/12/23 1,000 mcg capsule multivitamin 1 tab PO DAILY 09/29/22 08/12/23 melatonin 5 mg tablet 5 mg PO BEDTIME PRN Insomnia 05/02/23 08/12/23 oxycodone-acetaminophen 10 mg-325 1 tab PO 3XD PRN Pain, Moderate 05/02/23 08/12/23 mg tablet atorvastatin 20 mg tablet 20 mg PO DAILY 08/12/23 08/12/23 duloxetine 30 mg capsule,delayed 30 mg PO DAILY 08/12/23 08/12/23 release ferrous sulfate 325 mg (65 mg 325 mg PO Q OTHER DAY 08/12/23 08/12/23 iron) tablet (FeroSul) hydrocodone 10 mg-acetaminophen 1 tab PO 3XD PRN 08/12/23 08/12/23 325 mg tablet hydroxyzine HCl 25 mg tablet 25 mg PO 3XD 08/12/23 08/12/23 pramipexole 0.125 mg tablet mg PO 08/12/23 08/12/23 Previous Rx's Medication Instructions Recorded ondansetron 4 mg disintegrating 4 mg PO Q8H PRN nausea and 05/30/22 tablet vomiting #10 tabs cyclobenzaprine 10 mg tablet 10 mg PO TID PRN muscle spasm #20 10/16/23 tabs Allergies Allergy/AdvReac Type Severity Reaction Status Date / Time lamotrigine [From LAMICTAL] Allergy Severe swelling Verified 10/16/23 11:28 lips, hands tongue Review of Systems <Shauna Morgan PA-C - Last Filed: 12/04/23 10:38> Review of Systems Narrative: Negative except as above Musculoskeletal Comments: Severe back pain Neurologic Comments: Multiple bouts of incontinence Patient History <Shauna Morgan PA-C - Last Filed: 12/04/23 10:38> Medical History Cervical spondylosis Cervicalgia Ataxia Cervical radiculopathy Hypothyroid Bipolar 1 disorder Diverticulitis Bone spur of foot Surgical History Gastric bypass status for obesity History of Ivania fundoplication S/P correction of deviated nasal septum H/O: hysterectomy History of carpal tunnel release History of bowel resection S/P removal of left ovary Family History Grandmother Ovarian cancer Family/Other Diabetes mellitus Social History marital status: household members: spouse occupational status: unemployed Smoking Status: Current every day smoker alcohol intake: never Smoking Status: Current every day smoker alcohol intake frequency: holidays/special occasions only Substance Use Type: does not use Exam <Shauna Morgan PA-C - Last Filed: 12/04/23 10:38> Initial Vital Signs Initial Vital Signs: Vital Signs Temperature 98.4 F 12/03/23 15:36 Pulse Rate 122 H 12/03/23 15:36 Respiratory Rate 16 12/03/23 15:36 Blood Pressure 120/83 12/03/23 15:36 Pulse Oximetry 96 12/03/23 15:36 Oxygen Delivery Method Room Air 12/03/23 15:36 Reviewed Const General: cooperative and acute distress Nutritional Appearance: overweight Orientation: Orientation Eyes General: Yes appearance normal, both eyes and all related structures Pupils: PERRL EOM: EOM intact bilaterally Neck Other: Ongoing chronic pain limited range of motion this is not new not associated with her complaints today. Resp Effort & Inspection: normal respiratory effort and able to speak in complete sentences Auscultation: clear to auscultation bilaterally, no crackles, no rales, no rhonchi and no wheezes Cardio Rate: tachycardic Rhythm: regular rhythm Heart Sounds: S1 normal and S2 normal Back/Spine/Pelvis Thoracic/Lumbar Spine: thoracic and lumbar spine normal to inspection, pain with thoraco-lumbar ROM, No paraspinal tenderness, thoraco-lumbar ROM limited, lumbar spinal tenderness and straight leg raise positive Other: Patient has pain, with limited movement. Appears to be extremely uncomfortable. Skin Other: Warm pink and dry Neuro General: patient alert, patient awake, patient oriented x3 and other (Wheelchair antalgic gait) Cranial Nerves: CN's II-XI intact bilaterally Cognition: normal cognition Speech: speech normal Gait: antalgic (Slow) Other: DTRs are decreased bilaterally in the lower extremities Extrem Other: Cap refill is preserved pulses are present. Range of motion and strength is decreased due to discomfort and pain. Psych Appearance: grossly normal Mental Status: mental status grossly normal Speech and Movement: speech and movement normal Mood: irritable mood Affect: irritable affect Attitude: cooperative Thought Process: normal Thought Content: normal Judgment: judgment good <Mtathew Alvares DO - Last Filed: 12/04/23 18:02> Initial Vital Signs Initial Vital Signs: Vital Signs Temperature 98.4 F 12/03/23 15:36 Pulse Rate 122 H 12/03/23 15:36 Respiratory Rate 16 12/03/23 15:36 Blood Pressure 120/83 12/03/23 15:36 Pulse Oximetry 96 12/03/23 15:36 Oxygen Delivery Method Room Air 12/03/23 15:36 Scores <Shauna Morgan PA-C - Last Filed: 12/04/23 10:38> GCS Citation: 15 Course <Shauna Morgan PA-C - Last Filed: 12/04/23 10:38> Orders Ordered: Discontinued Medications Hydromorphone HCl (Hydromorphone 0.5 Mg Inj) 0.5 mg IV NOW ONE Stop: 12/03/23 16:06 Last Admin: 12/03/23 16:33 Dose: 0.5 mg Documented By: KM Hydromorphone HCl (Hydromorphone 0.5 Mg Inj) 0.5 mg IV NOW ONE Stop: 12/03/23 20:26 Last Admin: 12/03/23 20:30 Dose: 0.5 mg Documented By: KENDRICK Ketorolac Tromethamine (Ketorolac 30 Mg/Ml Vial) 15 mg IV NOW ONE Stop: 12/03/23 21:19 Last Admin: 12/03/23 21:25 Dose: Not Given Documented By: KENDRICK Ondansetron HCl (Ondansetron 4 Mg/2 Ml Inj) 4 mg IV NOW ONE Stop: 12/03/23 16:06 Last Admin: 12/03/23 16:33 Dose: 4 mg Documented By: KM Vital Signs Vital signs: Vital Signs - 8 hr 12/03/23 15:36 12/03/23 18:55 12/03/23 20:37 Temperature 98.4 F Pulse Rate 122 H 86 82 Respiratory Rate 16 16 25 H Blood Pressure 120/83 117/75 116/87 Pulse Oximetry 96 95 94 Oxygen Delivery Method Room Air Room Air Room Air Reviewed <Matthew Alvares DO - Last Filed: 12/04/23 18:02> Orders Ordered: Discontinued Medications Hydromorphone HCl (Hydromorphone 0.5 Mg Inj) 0.5 mg IV NOW ONE Stop: 12/03/23 16:06 Last Admin: 12/03/23 16:33 Dose: 0.5 mg Documented By: KM Hydromorphone HCl (Hydromorphone 0.5 Mg Inj) 0.5 mg IV NOW ONE Stop: 12/03/23 20:26 Last Admin: 12/03/23 20:30 Dose: 0.5 mg Documented By: KENDRICK Ketorolac Tromethamine (Ketorolac 30 Mg/Ml Vial) 15 mg IV NOW ONE Stop: 12/03/23 21:19 Last Admin: 12/03/23 21:25 Dose: Not Given Documented By: KENDRICK Ondansetron HCl (Ondansetron 4 Mg/2 Ml Inj) 4 mg IV NOW ONE Stop: 12/03/23 16:06 Last Admin: 12/03/23 16:33 Dose: 4 mg Documented By: KM Vital Signs Vital signs: Vital Signs - 8 hr 12/03/23 15:36 12/03/23 18:55 12/03/23 20:37 Temperature 98.4 F Pulse Rate 122 H 86 82 Respiratory Rate 16 16 25 H Blood Pressure 120/83 117/75 116/87 Pulse Oximetry 96 95 94 Oxygen Delivery Method Room Air Room Air Room Air MDM - Back Pain/Injury <Shauna Morgan PA-C - Last Filed: 12/04/23 10:38> Lab Data 12/03/23 16:30 12/03/23 16:30 Labs: Lab Results 12/03/23 12/03/23 Range/Units 16:07 16:30 WBC 7.1 (4.5-11.0) X10^3/uL RBC 4.29 (4.0-5.2) X10^6/uL Hgb 13.0 (12.0-16.0) g/dL Hct 38.8 (36-46) % MCV 90.6 (80-100) fL MCH 30.2 (26-34) PG MCHC 33.3 (30-36) % RDW 15.2 H (11.6-14.8) % Plt Count 165 (150-400) X10^3/uL Neut % (Auto) 73.0 (50-75) % Lymph % (Auto) 20.5 L (25-40) % [place] % (Auto) 4.2 (3-14) % Eos % (Auto) 1.6 L (2-4) % Baso % (Auto) 0.7 (0-2) % Neut # (Auto) 5200 (5421-3416) /uL Lymph # (Auto) 1500 (0316-9978) /uL [place] # (Auto) 300 (0-900) /uL Eos # (Auto) 100 (0-450) /uL Baso # (Auto) 0 (0-100) /uL Sodium 139 (137-145) mmol/L Potassium 3.9 (3.4-5.1) mmol/L Chloride 108 H (98-107) mmol/L Carbon Dioxide 26 (22-32) mmol/L BUN 15 (7-17) mg/dL Creatinine 0.73 (0.52-1.04) mg/dL Estimated GFR > 60 (>60) mL/min BUN/Creatinine Ratio 20.5 (6-22) Glucose 116 H (70-100) mg/dL Calcium 9.0 (8.4-10.2) mg/dL Total Bilirubin 0.4 (0.2-1.3) mg/dL AST 21 (14-36) IU/L ALT 17 (<35) IU/L Alkaline Phosphatase 104 (38-126) U/L Total Protein 6.3 (6.3-8.2) g/dL Albumin 3.9 (3.5-5.0) g/dL Globulin 2.4 (1.7-4.1) g/dL Albumin/Globulin Ratio 1.6 (1.0-2.8) Urine RBC 0-1/hpf (0-5/HPF) Urine WBC 0-1/hpf (0-5/HPF) Ur Squamous Epith Cells 1-5 /hpf (0-5/HPF) Urine Bacteria Few (2-10) H (None) Ur Culture Indicated? Cult not indicated Vol Urine Centrifuged 10ml (spun) MDM Narrative Medical decision making narrative: 53-year-old female, ongoing chronic pain issues. Unable to see her primary care doctor. Chronic neck pain, ongoing back pain, exacerbation since Wednesday. With multiple bouts of incontinence. Was unable to see her primary care doctor today. IV IV Zofran IV Dilaudid CBC CMP MRI of the lumbar area will be done at 7:30 a.m. this evening Patient resting in her room mri no acute findings DC home follow up with PCP Supportive therapy education ED precautions Sign out to the attending this evening Dr. Giorgio alvares: Received turned over. Review patient's history and physical exam and workup up to this point. MRI does not give a definitive cause of her lower back discomfort. There was no emergent need for spine consultation. Discussed with her that there was not a tremendous amount of degenerative disc disease and there was no spinal stenosis. She was ambulatory. Advised that she talk with her primary doctor about further pain management and also talk with her insurance company about what pain management clinics in the area take her insurance. No change in her medications today. She was given return precautions. <Matthew Alvares, DO - Last Filed: 12/04/23 18:02> Lab Data Attestation: I reviewed the patient's lab results. Labs: Lab Results 12/03/23 12/03/23 Range/Units 16:07 16:30 WBC 7.1 (4.5-11.0) X10^3/uL RBC 4.29 (4.0-5.2) X10^6/uL Hgb 13.0 (12.0-16.0) g/dL Hct 38.8 (36-46) % MCV 90.6 (80-100) fL MCH 30.2 (26-34) PG MCHC 33.3 (30-36) % RDW 15.2 H (11.6-14.8) % Plt Count 165 (150-400) X10^3/uL Neut % (Auto) 73.0 (50-75) % Lymph % (Auto) 20.5 L (25-40) % [place] % (Auto) 4.2 (3-14) % Eos % (Auto) 1.6 L (2-4) % Baso % (Auto) 0.7 (0-2) % Neut # (Auto) 5200 (2687-0163) /uL Lymph # (Auto) 1500 (8355-4446) /uL [place] # (Auto) 300 (0-900) /uL Eos # (Auto) 100 (0-450) /uL Baso # (Auto) 0 (0-100) /uL Sodium 139 (137-145) mmol/L Potassium 3.9 (3.4-5.1) mmol/L Chloride 108 H (98-107) mmol/L Carbon Dioxide 26 (22-32) mmol/L BUN 15 (7-17) mg/dL Creatinine 0.73 (0.52-1.04) mg/dL Estimated GFR > 60 (>60) mL/min BUN/Creatinine Ratio 20.5 (6-22) Glucose 116 H (70-100) mg/dL Calcium 9.0 (8.4-10.2) mg/dL Total Bilirubin 0.4 (0.2-1.3) mg/dL AST 21 (14-36) IU/L ALT 17 (<35) IU/L Alkaline Phosphatase 104 (38-126) U/L Total Protein 6.3 (6.3-8.2) g/dL Albumin 3.9 (3.5-5.0) g/dL Globulin 2.4 (1.7-4.1) g/dL Albumin/Globulin Ratio 1.6 (1.0-2.8) Urine RBC 0-1/hpf (0-5/HPF) Urine WBC 0-1/hpf (0-5/HPF) Ur Squamous Epith Cells 1-5 /hpf (0-5/HPF) Urine Bacteria Few (2-10) H (None) Ur Culture Indicated? Cult not indicated Vol Urine Centrifuged 10ml (spun) Imaging Data MRI lumbar spine: Radiologist's Impression: PROCEDURE: MR LUMBAR SPINE WO/W CON INDICATIONS: Back pain now with urinary incontinence TECHNIQUE: Noncontrast sagittal T1 spin echo and T2 fast spin echo, sagittal STIR, axial T1 and T2 fast spin echo through the lumbar spine. In cases with scoliosis, additional coronal T2 fast spin echo may be performed. After the administration of contrast, sagittal and axial T1 spin echo with fat saturation through the lumbar spine. COMPARISON: None. FINDINGS: Image quality: Excellent. Alignment and curvature: There is normal bony alignment. Marrow: Marrow is of normal overall signal. No acute vertebral body compression fractures. No suspicious marrow enhancement. Spinal cord: Conus medullaris terminates at the L1 level. Visualized spinal cord demonstrates normal signal, without suspicious enhancement. Paraspinous soft tissues: No paravertebral masses or abnormal enhancement. T12-L1: Normal appearance. L1-L2: Normal appearance. L2-L3: Facet effusions. L3-L4: Disc desiccations. Facet effusions. L4-L5: Disc desiccation, facet effusions. Mild right neural foraminal narrowing. L5-S1: Asymmetric posterior disc bulge. IMPRESSION: No findings to explain the patient's urinary incompetence. No significant spinal canal or neural foraminal narrowing. Mild degenerative disc disease and facet arthropathy. MDM Narrative Medical decision making narrative: 53-year-old female, ongoing chronic pain issues. Unable to see her primary care doctor. Chronic neck pain, ongoing back pain, exacerbation since Wednesday. With multiple bouts of incontinence. Was unable to see her primary care doctor today. IV IV Zofran IV Dilaudid CBC CMP MRI of the lumbar area will be done at 7:30 a.m. this evening Patient resting in her room Supportive therapy education ED precautions Sign out to the attending this evening Dr alvares: Received turned over. Review patient's history and physical exam and workup up to this point. MRI does not give a definitive cause of her lower back discomfort. There was no emergent need for spine consultation. Discussed with her that there was not a tremendous amount of degenerative disc disease and there was no spinal stenosis. She was ambulatory. Advised that she talk with her primary doctor about further pain management and also talk with her insurance company about what pain management clinics in the area take her insurance. No change in her medications today. She was given return precautions. Discharge Plan Departure Patient Disposition: Home Clinical Impression: Low back pain Instructions: DI for Low Back Pain Activity Restrictions/Additional Instructions: Continue to take all of your medications as directed. Recommend that you contact your primary care doctor for a follow-up. I also recommend that you talk with your insurance company about a list of pain management clinics in the area that take your insurance. Return to the emergency department for new symptoms. Prescriptions: No Action oxycodone-acetaminophen 10-325 mg tablet 1 tab PO 3XD PRN (Reason: Pain, Moderate) melatonin 5 mg Tablet 5 mg PO BEDTIME PRN (Reason: Insomnia) cyclobenzaprine 10 mg tablet 10 mg PO TID PRN (Reason: muscle spasm) Qty: 20 0RF ondansetron 4 mg tablet,disintegrating 4 mg PO Q8H PRN (Reason: nausea and vomiting) Qty: 10 0RF levothyroxine 88 mcg tablet 88 mcg PO DAILY calcium citrate 1,040 mg tablet 1,040 mg PO DAILY cholecalciferol (vitamin D3) 50 mcg (2,000 unit) capsule 50 mcg PO DAILY cyanocobalamin (vitamin B-12) 1,000 mcg capsule 1,000 mcg PO DAILY multivitamin Tablet 1 tab PO DAILY pregabalin 100 mg capsule 100 mg PO BID hydroxyzine HCl 25 mg tablet 25 mg PO 3XD hydrocodone-acetaminophen 10-325 mg tablet 1 tab PO 3XD PRN duloxetine 30 mg capsule,delayed release(DR/EC) 30 mg PO DAILY pramipexole 0.125 mg tablet PO atorvastatin 20 mg tablet 20 mg PO DAILY ferrous sulfate [FeroSul] 325 mg (65 mg iron) tablet 325 mg PO Q OTHER DAY Referrals: Ernesto Albrecht [Primary Care Provider] - Stand Alone Forms: Patient Portal/API
--- NOTE | 2023-12-03 16:05 | DI.MRI.S_ITS ---
PROCEDURE: MR LUMBAR SPINE WO/W CON INDICATIONS: Back pain now with urinary incontinence TECHNIQUE: Noncontrast sagittal T1 spin echo and T2 fast spin echo, sagittal STIR, axial T1 and T2 fast spin echo through the lumbar spine. In cases with scoliosis, additional coronal T2 fast spin echo may be performed. After the administration of contrast, sagittal and axial T1 spin echo with fat saturation through the lumbar spine. COMPARISON: None. FINDINGS: Image quality: Excellent. Alignment and curvature: There is normal bony alignment. Marrow: Marrow is of normal overall signal. No acute vertebral body compression fractures. No suspicious marrow enhancement. Spinal cord: Conus medullaris terminates at the L1 level. Visualized spinal cord demonstrates normal signal, without suspicious enhancement. Paraspinous soft tissues: No paravertebral masses or abnormal enhancement. T12-L1: Normal appearance. L1-L2: Normal appearance. L2-L3: Facet effusions. L3-L4: Disc desiccations. Facet effusions. L4-L5: Disc desiccation, facet effusions. Mild right neural foraminal narrowing. L5-S1: Asymmetric posterior disc bulge. IMPRESSION: No findings to explain the patient's urinary incompetence. No significant spinal canal or neural foraminal narrowing. Mild degenerative disc disease and facet arthropathy. Dictated by: Alexis Baltazar M.D. on 12/03/2023 at 21:24 Approved by: Alexis Baltazar M.D. on 12/03/2023 at 21:27
[2023-12-03] MEDS: HYDROMORPHONE 0.5 MG INJ IV ×2 (16:33→20:30)
[2023-12-03] MEDS: ONDANSETRON 4 MG/2 ML INJ IV (16:33)
[2023-12-03 16:50] LABS: Add Manual Diff / Slide Review NO; Basophils Absolute Auto 0 /uL (0-100); Basophils Percent Auto 0.7 % (0-2); Eosinophils Absolute Auto 100 /uL (0-450); Eosinophils Percent Auto 1.6 % (2-4); Hematocrit 38.8 % (36-46); Lymphocytes Absolute Auto 1500 /uL (1100-4500); Lymphocytes Percent Auto 20.5 % (25-40); Mean Corpuscular HGB Conc 33.3 % (30-36); Mean Corpuscular Hemoglobin 30.2 PG (26-34); Mean Corpuscular Volume 90.6 fL (80-100); Monocytes Absolute Auto 300 /uL (0-900); Monocytes Percent Auto 4.2 % (3-14); Neutrophils Absolute Auto 5200 /uL (1500-7000); Platelet Count 165 X10^3/uL (150-400); Red Blood Cell Count 4.29 X10^6/uL (4.0-5.2); Red Cell Distribution Width 15.2 % (11.6-14.8); White Blood Cell Count 7.1 X10^3/uL (4.5-11.0)
[2023-12-03 17:05] LABS: Alanine Aminotransferase 17 IU/L (<35); Albumin 3.9 g/dL (3.5-5.0); Albumin Globulin Ratio 1.6 (1.0-2.8); Alkaline Phosphatase 104 U/L (38-126); Aspartate Aminotransferase 21 IU/L (14-36); BUN Creatinine Ratio 20.5 (6-22); Bilirubin Total 0.4 mg/dL (0.2-1.3); Blood Urea Nitrogen 15 mg/dL (7-17); Carbon Dioxide 26 mmol/L (22-32); Chloride 108 mmol/L (98-107); Estimated Glomerular Filt Rate > 60 mL/min (>60); Globulin 2.4 g/dL (1.7-4.1); Glucose 116 mg/dL (70-100); HEMOLYSIS 17 (0-50); Potassium 3.9 mmol/L (3.4-5.1); Sodium 139 mmol/L (137-145); Total Protein 6.3 g/dL (6.3-8.2)
[2023-12-03 17:17] LABS: Bacteria Urine Few (2-10); Culture Indicated Urine Cult Not Indicated; RBC Urine 0-1/HPF (0-5/HPF); Squamous Epithelial Cell Urine 1-5 /HPF (0-5/HPF); Urine Volume 10mL (spun); WBC Urine 0-1/HPF (0-5/HPF)
[2023-12-03 18:55] VITALS: BP 117/75; PULSE 86; RESP 16; O2SAT 95
[2023-12-03 20:37] VITALS: BP 116/87; PULSE 82; RESP 25; O2SAT 94
== END 2023-12-03 22:05 | disposition home or self-care (01) ==
PROVIDERS: Physician Assistant; Emergency Provider Emergency Medicine; Family Provider Internal Medicine; PCP Internal Medicine
DX: M54.50 Low back pain, unspecified (principal); K59.00 Constipation, unspecified; Z98.84 Bariatric surgery status
CPT/HCPCS: 36415; 72158; 80053; 81015; 85025; 96374; 96375; 96376; 99284; A9579; J1170; J2405

== ENCOUNTER → 2024-01-13 10:31 | Outpatient (CLI) | payer OTHER, SELFPAY ==
[2022-09-25 11:17] VITALS: BMI 26.1
--- NOTE | 2024-01-13 10:37 | DI.RAD.S_ITS ---
PROCEDURE: XR LUMBAR SPINE 2-3V INDICATIONS: BACK PAIN TECHNIQUE: 3 views of the lumbar spine were acquired. COMPARISON: None. FINDINGS: Lumbar spine curvature and alignment: Normal. Bones: There are no osseous abnormalities. Disc spaces: Normal in height without significant degeneration. Mild degenerate facet disease L4-5 and L5-S1. Intervertebral foramen: Grossly normal in width. Soft tissues: Moderate colonic stool noted. IMPRESSION: Mild L4-5 and L5-S1 degenerative facet disease. Moderate colonic stool suggesting constipation Dictated by: Jez Oliver M.D. on 01/14/2024 at 9:14 Approved by: Jez Oliver M.D. on 01/14/2024 at 9:15
--- NOTE | 2024-01-13 10:37 | DI.RAD.S_ITS ---
PROCEDURE: XR THORACIC SPINE 2V INDICATIONS: BACK PAIN TECHNIQUE: 3 views of the thoracic spine were acquired. COMPARISON: None. FINDINGS: Thoracic spine curvature and alignment: Normal. Bones: There are no osseous abnormalities. Disc spaces: Moderate degenerative disc disease seen throughout the thoracic spine Soft tissues: No soft tissue swelling, calcification or mass. IMPRESSION: Moderate degenerative disc disease throughout the thoracic spine. Dictated by: Jez Oliver M.D. on 01/14/2024 at 9:50 Approved by: Jez Oliver M.D. on 01/14/2024 at 9:51
== END ==
PROVIDERS: Family Provider Internal Medicine; PCP Internal Medicine; Referring Provider Internal Medicine Cardiovascular Disease; Visit Provider Internal Medicine Cardiovascular Disease
DX: M47.816 Spondylosis without myelopathy or radiculopathy, lumbar region (principal); M47.817 Spondylosis without myelopathy or radiculopathy, lumbosacral region; M51.34 Other intervertebral disc degeneration, thoracic region; M54.50 Low back pain, unspecified
CPT/HCPCS: 72070; 72100

== ENCOUNTER 2024-01-15 16:30 | Emergency (ER) | payer OTHER, MEDICAID, SELFPAY ==
[2022-09-25 11:17] VITALS: BMI 26.1
[2024-01-15 16:36] VITALS: BP 160/74; PULSE 73; RESP 18; TEMP 36.6; O2SAT 98; BMI 28.1
--- NOTE | 2024-01-15 18:34 | ED_ITS ---
HPI - Back Pain/Injury General Chief Complaint: Back Pain/Injury Stated Complaint: Low Back Pain Time Seen by Provider: 01/15/24 18:34 Source: patient History of Present Illness HPI Narrative: Patient is a 53-year-old female with a history of chronic low back pain, cervical radiculopathy, hyperlipidemia presents for exacerbation of her chronic low back pain. States that she does follow up with orthopedic spine states that she is in the process of getting MRIs and getting injections but it is taking a long time because of insurance issues. She states that her symptoms radiate to bilateral buttock region, but denies any numbness weakness tingling lower e xtremity weakness denies any bowel or urinary incontinence or retention. Denies any saddle paresthesias. She is able to stand bear weight ambulate unassisted however slowed secondary to pain. She states that she has been trying physical therapy as prescribed by her orthopedic surgeon but over the past few days the low pain has gotten worse therefore decided come into the ED for further evaluation treatment. Related Data Home Medications Medication Instructions Recorded Confirmed levothyroxine 88 mcg tablet 88 mcg PO DAILY 05/26/22 08/12/23 pregabalin 100 mg capsule 100 mg PO BID 07/28/22 08/12/23 calcium citrate 1,040 mg tablet 1,040 mg PO DAILY 09/29/22 08/12/23 cholecalciferol (vitamin D3) 50 50 mcg PO DAILY 09/29/22 08/12/23 mcg (2,000 unit) capsule cyanocobalamin (vitamin B-12) 1,000 mcg PO DAILY 09/29/22 08/12/23 1,000 mcg capsule multivitamin 1 tab PO DAILY 09/29/22 08/12/23 melatonin 5 mg tablet 5 mg PO BEDTIME PRN Insomnia 05/02/23 08/12/23 oxycodone-acetaminophen 10 mg-325 1 tab PO 3XD PRN Pain, Moderate 05/02/23 08/12/23 mg tablet atorvastatin 20 mg tablet 20 mg PO DAILY 08/12/23 08/12/23 duloxetine 30 mg capsule,delayed 30 mg PO DAILY 08/12/23 08/12/23 release ferrous sulfate 325 mg (65 mg 325 mg PO Q OTHER DAY 08/12/23 08/12/23 iron) tablet (FeroSul) hydrocodone 10 mg-acetaminophen 1 tab PO 3XD PRN 08/12/23 08/12/23 325 mg tablet hydroxyzine HCl 25 mg tablet 25 mg PO 3XD 08/12/23 08/12/23 pramipexole 0.125 mg tablet mg PO 08/12/23 08/12/23 Previous Rx's Medication Instructions Recorded ondansetron 4 mg disintegrating 4 mg PO Q8H PRN nausea and 05/30/22 tablet vomiting #10 tabs cyclobenzaprine 10 mg tablet 10 mg PO TID PRN muscle spasm #20 10/16/23 tabs diazepam 5 mg tablet (Valium) 5 mg PO TID PRN muscle spasm 5 01/15/24 days #15 tabs prednisone 20 mg tablet 40 mg (2 x 20 mg) PO DAILY 5 days 01/15/24 #10 tabs Allergies Allergy/AdvReac Type Severity Reaction Status Date / Time lamotrigine [From LAMICTAL] Allergy Severe swelling Verified 10/16/23 11:28 lips, hands tongue Review of Systems Review of Systems Narrative: General: Denies fever, chills, weight loss HEENT: Denies headache, eye drainage, eye irritation, head trauma, sore throat, voice change Cardiovascular: Denies any chest pain, palpitations, shortness of breath, tach ycardia Respiratory: Denies any shortness of breath, cough, wheeze, stridor GI/: Denies any abdominal pain, nausea, vomiting, diarrhea, bright red blood per rectum, melanotic stools, urinary frequency, urinary retention, dysuria, hematuria MSK: Positive low back pain Skin: Denies any rashes, lesions, discoloration Neuro: Denies any headache, lightheadedness, dizziness, fainting, weakness Psych: Denies SI/HI Patient History Medical History Cervical spondylosis Cervicalgia Ataxia Cervical radiculopathy Hypothyroid Bipolar 1 disorder Diverticulitis Bone spur of foot Surgical History Gastric bypass status for obesity History of Ivania fundoplication S/P correction of deviated nasal septum H/O: hysterectomy History of carpal tunnel release History of bowel resection S/P removal of left ovary Family History Grandmother Ovarian cancer Family/Other Diabetes mellitus Social History marital status: household members: spouse occupational status: unemployed Smoking Status: Current every day smoker alcohol intake: never Smoking Status: Current every day smoker tobacco type: cigarettes alcohol intake frequency: holidays/special occasions only Substance Use Type: marijuana Exam Narrative Exam Narrative: General: Cooperative, comfortable, well-developed, not in acute distress HEENT: Normocephalic, atraumatic, PERRLA, normal sclera, eyelids normal, Neck: Active full range of motion, atraumatic Chest: Normal to inspection, negative crepitus, no overlying erythema ecchymosis Respiratory: Normal respiratory effort, not in acute respiratory distress, clear to auscultation bilaterally negative cough, wheeze, tachypnea, rhonchi, rales Cardiology: Regular rate rhythm negative gallop, murmur, rubs GI/: Normal to inspection, soft, nonrigid, no tenderness to palpation, exam deferred MSK: Full range of active range of motion of all 4 extremities, atraumatic, there is some tenderness to palpation of the paraspinal muscles of the lumbar re gion, however she is neurovascularly intact to bilateral upper and lower extremities, she is able to stand bear weight ambulate unassisted here in the emergency department however slowed secondary to pain. Skin: No rashes lesions noted Neuro: Alert awake oriented x3, moves all 4 extremities spontaneously, cranial nerves intact, able to answer all questions appropriately follows commands appropriately Psych: Cooperative, negative suicidal or homicidal ideations Initial Vital Signs Initial Vital Signs: Vital Signs Temperature 98 F 01/15/24 16:36 Pulse Rate 73 01/15/24 16:36 Respiratory Rate 18 01/15/24 16:36 Blood Pressure 160/74 H 01/15/24 16:36 Pulse Oximetry 98 01/15/24 16:36 Oxygen Delivery Method Room Air 01/15/24 16:36 Course Orders Ordered: ED Orders 01/15/24 18:39 CT lumbar spine wo con Stat Discontinued Medications Dexamethasone (Dexamethasone 10 Mg/Ml Vial) 10 mg PO NOW ONE Stop: 01/15/24 18:42 Last Admin: 01/15/24 18:52 Dose: 10 mg Documented By: CTS Diazepam (Diazepam 5 Mg Tablet) 5 mg PO NOW ONE Stop: 01/15/24 18:42 Last Admin: 01/15/24 18:53 Dose: 5 mg Documented By: CTS Vital Signs Vital signs: Vital Signs - 8 hr 01/15/24 16:36 Temperature 98 F Pulse Rate 73 Respiratory Rate 18 Blood Pressure 160/74 H Pulse Oximetry 98 Oxygen Delivery Method Room Air MDM - Back Pain/Injury Differential Diagnosis Differential diagnosis: Likely lumbar radiculopathy, sciatica and other (Lumbar strain) Imaging Data CT lumbar: Radiologist's Impression: [place] [address] CT Scan Report Signed Patient: Jocelyn Riggisn MR#: [id number] : 1970 Acct:[id number] Age/Sex: 53 / F Date of Service: 01/15/24 Loc: ED Accession Number: [id number] Procedure: CT lumbar spine wo con Ordering Provider: Sudhir Correa D.O. PROCEDURE: CT LUMBAR SPINE WO CON INDICATIONS: low back pain TECHNIQUE: Noncontrast 3 mm thick sections acquired from the T12 level to the sacrum. Sagittal and coronal reformats were constructed. For radiation dose reduction, the following was used: automated exposure control. COMPARISON: [facility], , MR LUMBAR SPINE WO/W CON, 12/03/2023, 19:33. FINDINGS: Image quality: Excellent. Bones: There is normal bony alignment. No acute vertebral body compression fractures. No suspicious lytic or blastic bony lesions. No pars defects. No canal stenosis or foraminal stenosis. Soft tissues: No retroperitoneal masses or hematomas. Visualized aorta is normal in caliber. IMPRESSION: No acute bony abnormality. No canal stenosis or foraminal stenosis. [facility] Narrative Medical decision making narrative: Patient is a 53-year-old female history of chronic low back pain presents for exacerbation of this. No red flags for cauda equina. Patient was given Decadron and Valium here in the emergency department with significant improvement of her symptoms. She does have an appointment with her orthopedic surgeon and MRI scheduled in an outpatient setting. Here in the emergency department patient did have CT scan that did not show any acute abnormalities no canal stenosis or foraminal stenosis. Patient with significant improvement after medication will be sent home with additional steroids and Valium. She was instructed follow up with her orthopedic surgeon for her scheduled appointment. She verbalized understanding of this strict return precautions given she understands agrees to being discharged home with outpatient follow up Discharge Plan Departure Patient Disposition: Home Clinical Impression: Acute exacerbation of chronic low back pain Activity Restrictions/Additional Instructions: Please follow up with the orthopedist and your primary care doctor Please read the discharge instructions sheet carefully and bring all papers to all doctor follow-up visits, as it may contain information that your doctor may want to see. Disease processes change and evolve, if your symptoms worsen or if you develop any new symptoms that are concerning to you please return for evaluation. Your evaluation today does not show any evidence of any life- threatening/serious illnesses requiring admission to the hospital or surgery. Please follow-up with your doctor for re-evaluation in approximately 1 day. Seek immediate medical attention for any worrisome symptoms. Prescriptions: New diazepam [Valium] 5 mg tablet 5 mg PO TID PRN (Reason: muscle spasm) 5 Days Qty: 15 0RF prednisone 20 mg tablet 40 mg PO DAILY 5 Days Qty: 10 0RF No Action oxycodone-acetaminophen 10-325 mg tablet 1 tab PO 3XD PRN (Reason: Pain, Moderate) melatonin 5 mg Tablet 5 mg PO BEDTIME PRN (Reason: Insomnia) cyclobenzaprine 10 mg tablet 10 mg PO TID PRN (Reason: muscle spasm) Qty: 20 0RF ondansetron 4 mg tablet,disintegrating 4 mg PO Q8H PRN (Reason: nausea and vomiting) Qty: 10 0RF levothyroxine 88 mcg tablet 88 mcg PO DAILY calcium citrate 1,040 mg tablet 1,040 mg PO DAILY cholecalciferol (vitamin D3) 50 mcg (2,000 unit) capsule 50 mcg PO DAILY cyanocobalamin (vitamin B-12) 1,000 mcg capsule 1,000 mcg PO DAILY multivitamin Tablet 1 tab PO DAILY pregabalin 100 mg capsule 100 mg PO BID hydroxyzine HCl 25 mg tablet 25 mg PO 3XD hydrocodone-acetaminophen 10-325 mg tablet 1 tab PO 3XD PRN duloxetine 30 mg capsule,delayed release(DR/EC) 30 mg PO DAILY pramipexole 0.125 mg tablet PO atorvastatin 20 mg tablet 20 mg PO DAILY ferrous sulfate [FeroSul] 325 mg (65 mg iron) tablet 325 mg PO Q OTHER DAY Referrals: Ernesto Albrecht [Primary Care Provider] - Stand Alone Forms: Patient Portal/API/Survey
--- NOTE | 2024-01-15 18:39 | DI.CT.S_ITS ---
PROCEDURE: CT LUMBAR SPINE WO CON INDICATIONS: low back pain TECHNIQUE: Noncontrast 3 mm thick sections acquired from the T12 level to the sacrum. Sagittal and coronal reformats were constructed. For radiation dose reduction, the following was used: automated exposure control. COMPARISON: [facility], MR, MR LUMBAR SPINE WO/W CON, 12/03/2023, 19:33. FINDINGS: Image quality: Excellent. Bones: There is normal bony alignment. No acute vertebral body compression fractures. No suspicious lytic or blastic bony lesions. No pars defects. No canal stenosis or foraminal stenosis. Soft tissues: No retroperitoneal masses or hematomas. Visualized aorta is normal in caliber. IMPRESSION: No acute bony abnormality. No canal stenosis or foraminal stenosis. Dictated by: Jacob Gomes M.D. on 01/15/2024 at 19:38 Approved by: Jacob Gomes M.D. on 01/15/2024 at 19:40
[2024-01-15] MEDS: DEXAMETHASONE 10 MG/ML VIAL PO (18:52)
[2024-01-15] MEDS: diazePAM 5 MG TABLET PO (18:53)
[2024-01-15 20:00] VITALS: BP 128/81; PULSE 72; RESP 18; O2SAT 100
== END 2024-01-15 20:01 | disposition home or self-care (01) ==
PROVIDERS: Emergency Provider Student in an Organized Health Care Education/Training Program; Family Provider Internal Medicine; PCP Internal Medicine
DX: M54.50 Low back pain, unspecified (principal)
CPT/HCPCS: 72131; 99283; 99284; J1100